=== PATIENT | female | born 1950 | race Caucasian/White ===

== ENCOUNTER 2022-09-02 09:22 | Outpatient (RCR) | payer MEDICARE, OTHER, SELFPAY | END 2022-09-22 14:00 | disposition home or self-care (01) | LOC: PT 09:22 | PROVIDERS: PCP Internal Medicine; Visit Provider Internal Medicine | DX: M54.50 Low back pain, unspecified (principal); M54.10 Radiculopathy, site unspecified ==

== ENCOUNTER 2022-11-29 13:52 | Outpatient (OUT) | payer MEDICARE, OTHER, SELFPAY ==
[2022-11-29 14:59] LABS: Potassium 4.2 mmol/L (3.5-5.1)
== END 2022-11-29 13:53 | disposition home or self-care (01) ==
LOC: LAB 13:52
PROVIDERS: PCP Internal Medicine; Visit Provider Internal Medicine
DX: E87.6 Hypokalemia (principal)
CPT/HCPCS: 36415; 84132

== ENCOUNTER 2022-12-30 13:05 | Outpatient (OUT) | payer MEDICARE, OTHER, SELFPAY ==
--- NOTE | 2022-12-30 13:06 | VEIN_ITS ---
Patient: RIGOBERTO ALVARENGA Exam Date: 12/30/2022 : 1950 Gender:F Ordering : DR DARYL OLMEDO M.D. Admission #: [id number] Family : Order #: [id number] CLICK HERE TO VIEW EXAM RADIOLOGY REPORT PROCEDURE: [facility] - OFFICE VISIT FOLLOW UP COMPARISON: None. PROGRESS NOTES: The patient reports development of bulging dilated veins and swelling involving the medial lower left leg, and has experienced an episode of spontaneous bleeding. Physical exam demonstrates mild swelling and several prominent varicosities along the medial lower left leg. Review of the ultrasound performed the same day demonstrates occlusive thrombus extending throughout the previously treated vein(s), see separate report, consistent with a successful ablation. No deep vein thrombus. The patient expressed a desire to treat the abnormal varicosities. The patient was informed that treatment was a process and would require 1-2 procedures/sessions. VEIN/[facility] EST LMTD IMPRESSION: 1. Interval development of left lower extremity ankle edema and several dilated varicosities. Patient has also undergone an episode of spontaneous bleeding. PLAN: 1. Microfoam chemical ablation of dilated superficial varicosities of the medial mid / distal lower left leg. Nurse notes, history and physical were reviewed and confirmed, see attached forms. The nurse was present throughout the physical exam and consultation Dictated by: Yadiel Chapman M.D. on 12/30/2022 at 14:59 Approved by: Yadiel Chapman M.D. on 12/30/2022 at 15:06
--- NOTE | 2022-12-30 13:06 | VEIN_ITS ---
Patient: RIGOBERTO ALVARENGA Exam Date: 12/30/2022 : 1950 Gender:F Ordering : DR DARYL OLMEDO M.D. Admission #: [id number] Family : Order #: [id number] CLICK HERE TO VIEW EXAM RADIOLOGY REPORT PROCEDURE: VC EXT VENOUS REFLUX EUFEMIA LMTD COMPARISON: None. INDICATIONS: I83.813 Painful varicose veins of bilat lower extremities TECHNIQUE: Duplex imaging of the lower extremity to assess the deep and superficial venous system for the presence of deep or superficial venous incompetence and to document the location and severity of disease. The study includes evaluation of the great saphenous vein (GSV), anterior accessory saphenous vein (AASV) and small saphenous vein (SSV). Patient scanned in reverse Trendelenburg and standing. FINDINGS: RIGHT LOWER EXTREMITY: Saphenofemoral Junction Reflux: YesNo mm sec GSV: Diam (mm) Reflux/ Time (sec) Proximal Thigh N/A Mid Thigh N/A Distal Thigh N/A Prox Calf N/A Mid Calf N/A Saphenopopliteal Junction Reflux: mm N/A SSV: Proximal Calf N/A Mid Calf N/A AASV: Not present Proximal Thigh Mid Thigh Distal Thigh Thrombi: No acute or chronic thrombus visualized Compressibility: Normal Flow: Normal Preforator: No patent perforators Tech Note: GSV and SSV were previously ablated at [facility] in 2020. No patent varicose veins visualized. LEFT LOWER EXTREMITY: Saphenofemoral Junction Reflux: No mm sec GSV: Diam (mm) Reflux/Time (sec) Proximal Thigh N/A Mid Thigh N/A Distal Thigh N/A Prox Calf N/A Mid Calf N/A Saphenopopliteal Junction Relux: mm N/A SSV: Proximal Calf N/A Mid Calf N/A AASV: Proximal Thigh No Mid Thigh No Distal Thigh No Thrombi: No acute or chronic thrombus visualized Compressibility: Normal Flow: Normal Dean: No patent perforators Tech Note: GSV, AASV, and SSV previously ablated at [facility] in 2020. Patent varicose vein dist/med calf 3.8mm with 1.3s reflux. Patent varicose vein mid/med calf 4.2mm with 0.6s reflux. CONCLUSION: 1. Dilated and incompetent branch saphenous varicosities within mid and distal medial left calf. Dictated by: Yadiel Chapman M.D. on 12/30/2022 at 14:39 Approved by: Yadiel Chapman M.D. on 12/30/2022 at 14:59
== END 2022-12-30 13:06 | disposition home or self-care (01) ==
LOC: VC 13:05
PROVIDERS: PCP Internal Medicine; Visit Provider Radiology Diagnostic Radiology
DX: I83.813 Varicose veins of bilateral lower extremities with pain (principal)
CPT/HCPCS: 93970; G0463

== ENCOUNTER 2023-01-19 08:18 | Outpatient (OUT) | payer MEDICARE, OTHER, SELFPAY ==
[2023-01-19 12:34] LABS: Potassium 4.7 mmol/L (3.5-5.1)
== END 2023-01-19 08:19 | disposition home or self-care (01) ==
LOC: LAB 01-20 08:19
PROVIDERS: PCP Internal Medicine; Visit Provider Internal Medicine
DX: E87.6 Hypokalemia (principal)
CPT/HCPCS: 36415; 84132

== ENCOUNTER 2023-01-19 12:45 | Outpatient (OUT) | payer MEDICARE, OTHER, SELFPAY ==
--- NOTE | 2023-01-19 14:28 | CA_ITS ---
Patient: RIGOBERTO ALVARENGA Exam Date: 01/19/2023 : 1950 Gender:F Ordering : ARTEMIO LaiAbhinav GOMEZ Admission #: [id number] Family : DR Paulino Swain D.O. Order #: [id number] CLICK HERE TO VIEW EXAM ECHOCARDIOGRAM REPORT PROCEDURE: CA ECHO DOPPLER COMPLETE INDICATIONS: PVCs COMPARISON: None. DESCRIPTION: COMPLETE ECHOCARDIOGRAM Real-time transthoracic echocardiography with 2D, M-mode, spectral and color flow Doppler performed. QUALITY: Technical quality was good. LEFT VENTRICLE: Normal chamber size. Normal left ventricular wall thickness. Normal systolic function. LV EF: Normal left ventricular ejection fraction, (55%). DIASTOLIC: ATRIAL SEPTUM: Visually appears intact. LEFT ATRIUM: Moderate chamber dilatation. RIGHT ATRIUM: Mild chamber dilatation. RIGHT VENTRICLE: Normal chamber size. Normal right ventricular systolic function. TRICUSPID VALVE: Normal mobility and thickness. No stenosis with trivial regurgitation. No evidence of pulmonary hypertension. RVSP 31 mmHg MITRAL VALVE: Mildly thickened with normal mobility. No evidence of mitral valve stenosis. Moderate mitral annular calcification. Mild to moderate mitral regurgitation. AORTIC VALVE: Normal trileaflet appearance. Mildly calcified aortic valve. Normal leaflet mobility. No evidence of aortic valve stenosis. DVI 0.6, ADOLFO 1.9 [id number] aortic regurgitation. AORTIC ROOT: Normal diameter and appearance. PULMONIC VALVE: Normal thickness and mobility. No stenosis. Moderate regurgitation. PERICARDIUM: No evidence of pericardial effusion. IVC: Collapses with inspirations. PLEURA: CONCLUSION: 1. Normal ventricular systolic function. LVEF is 55%. 2. Moderate mitral annular calcification with no significant mitral valve stenosis. 3. Mild to moderate mitral regurgitation. 4. Mild to moderate biatrial dilatation. 5. Normal right-sided pressures. 6. No pericardial effusion. Adult Echocardiography Procedure Report Left Ventricle LVEDD (3.7 - 5.6 cm): 4.41 cm LVESD (2.2 - 4.0 cm): 3.55 cm LVIVS thickness (0.6 - 1.2 cm): 0.95 cm LVPW thickness (0.5 - 1.0 cm): 1.03 cm LVOT Max Gradient: 2.35 mm[Hg] LVOT Area (cm2): 0.77 m/s Peak Velocity (LVOT): 0.77 m/s Mean Velocity (LVOT): 0.54 m/s LVOT Diameter 2.04 cm Left Atrium LA Volume Index (2D A2C): 25.33 ml/m2 Left Atrium Systolic Dimension: 4.09 cm Mitral Valve MV E to A Ratio: 1.09 Mitral Valve A-Wave Peak Velocity: 0.98 m/s Mitral Valve E-Wave Peak Velocity: 1.07 m/s Right Ventricle Aorta AO Root Diam: 2.65 cm Ascending Ao Diam: 2.03 cm Aortic Valve AoV Area (Peak Adam): 1.89 cm2, 1.89 cm2 AoV Area (VTI): 1.86 cm2, 1.86 cm2 Peak Velocity(Antegrade Flow): 1.33 m/s Peak Gradient(Antegrade Flow): 7.07 mm[Hg] Mean Velocity(Antegrade Flow): 0.96 m/s Mean Gradient(Antegrade Flow): 4.11 mm[Hg] Velocity Time Integral: 33.83 cm Tricuspid Valve Peak Velocity (Regurgitant Flow): 2.63 m/s Pulmonic Valve Peak Velocity: 0.85 m/s Peak Gradient: 3.04 mm[Hg], 2.71 mm[Hg] Right Atrium Right Atrium Systolic Pressure: 28.04 ml, 34.04 ml, 22.04 ml Dictated by: Agustin Donaldson M.D. on 01/19/2023 at 18:23 Approved by: Agustin Donaldson M.D. on 01/19/2023 at 18:27
== END 2023-01-19 12:46 | disposition home or self-care (01) ==
LOC: CARD 12:45
PROVIDERS: PCP Internal Medicine; Visit Provider Internal Medicine Cardiovascular Disease
DX: E87.6 Hypokalemia (principal); I49.3 Ventricular premature depolarization; I48.0 Paroxysmal atrial fibrillation; I34.0 Nonrheumatic mitral (valve) insufficiency
CPT/HCPCS: 36415; 84132; 93306

== ENCOUNTER 2023-01-20 11:26 | Outpatient (OUT) | payer MEDICARE, OTHER, SELFPAY ==
--- NOTE | 2023-01-20 10:45 | NM_ITS ---
Patient: RIGOBERTO ALVARENGA Exam Date: 01/20/2023 : 1950 Gender:F Ordering : ARTEMIO LaiAbhinav GOMEZ Admission #: [id number] Family : DR Paulino Swain D.O. Order #: [id number] CLICK HERE TO VIEW EXAM RADIOLOGY REPORT PROCEDURE: NM CHERRIE PERF SPECT REST STR COMPARISON: None. INDICATIONS: ATRIAL FIBRILLATION TECHNIQUE: Exam Description: Stress/Rest one day protocol gated SPECT Rest Imagin.5 mCi Tc-99m Cardiolite IV on 01/20/2023 Stress Imaging 30.6 mCi Tc-99m Cardiolite IV on 01/20/2023 Exercise Protocol: Gerry Heart Rate (bpm): Rest: 86 Max: 131 PMHR: 87 Blood Pressure: Rest: 180/98 Max: 238/124 Exercise Time: Minutes: 2 Seconds: 00 Stage Reached: Stage: 1 Mets 4.6 Symptoms: Rest and peak stress ECG findings were normal and the exercise portion of the study was normal per attending physician Dr. Mason Swain . For more details please see separate cardiac stress test report. FINDINGS: QUALITY OF STUDY: Good. PERFUSION DEFECT: None. LOCATION: N/A SIZE: N/A. SEVERITY: N/A. TYPE: N/A. WALL MOTION: Normal. LV SIZE: Normal. 41 mL. TID / TCD: None; 0.6 LVEF: Normal. Calculated EF 83%. SUMMARY: Myocardial perfusion imaging study is NORMAL. CONCLUSION: 1. Normal myocardial profusion scan 2. Normal exercise test Dictated by: Zach Stone MD on 01/21/2023 at 07:31 Approved by: Zach Stone MD on 01/21/2023 at 07:56
--- NOTE | 2023-01-20 13:01 | PM.STRESS ---
Stress Test Stress Test Requesting physician: Jackson Billings General Information: Reason for Stress Test: [Evaluation of the patient with an abnormal EKG and history of atrial fibrillation. ] Cardiac History and Risk Factors: [This is a 72-year-old patient with no personal history of coronary disease. She does have a history of paroxysmal atriall fibrillation associated with hypokalemia. She does have a positive family history with her father having coronary artery disease.] Resting 12 - Lead Electrocardiogram: Normal sinus rhythm with a ventricular rate of 96 bpm. The TX interval 0.16, QRS 0.10 and the QT of 0.40. Her axis is normal there is no chamber enlargement noted. There are small Q waves in the inferior limb leads with nonspecific ST-T wave changes. Stress Test: Protocol: [Gerry protocol] Exercise Capacity: [This patient demonstrated below average exercise capacity. She exercised for two minutes achieving a heart rate of 131 bpm which is equal to eighty-seven percent maximum predicted heart rate. At peak exercise she was at 1.7 miles per hour, ten percent grade in 4.6 METs units.] Blood Pressure Response: [This patient demonstrated an abnormal blood pressure response to exercise. Her resting blood pressure was 180/98 increasing to a peak of 238/124 at peak exercise then gradually returned to baseline during the recovery phase.] Rhythm: [She remained in normal sinus rhythm without ectopy during exercise] ST - Response: [At peak exercise were slight J-point depression with upsloping ST segments easily returning to baseline prior to 0.08 seconds.] Patient Response: [This patient became very dyspneic during exercise but denied chest pain.] Interpretation: There was no objective evidence of myocardial ischemia during exercise. She demonstrated poor exercise capacity with an abnormal blood pressure response to exercise. Her Romo's treadmill score was 2, placing her in the moderate risk category. Cardiolite was injected with images in interpretation pending
== END 2023-01-20 11:27 | disposition home or self-care (01) ==
LOC: NM 11:26
PROVIDERS: PCP Internal Medicine; Visit Provider Internal Medicine Cardiovascular Disease
DX: I49.3 Ventricular premature depolarization (principal); R94.31 Abnormal electrocardiogram [ECG] [EKG]
CPT/HCPCS: 78452; 93017; A9500

== ENCOUNTER 2023-01-24 12:48 | Outpatient (OUT) | payer MEDICARE, OTHER, SELFPAY ==
--- NOTE | 2023-01-24 12:49 | VEIN_ITS ---
[address] [address] Patient Name: RIGOBERTO ALVARENGA MRN: [id number] date: 1950 Sex: F Assigned Patient Location: Current Patient Location: Accession/Order Number: [id number] Exam Date: 01/24/2023 13:00 Report Date: 01/24/2023 13:59 At the request of: DARYL OLMEDO Procedure: VC INJ Foam Sclerosant WUS ASSET ADMINISTRATOR PROCEDURE: VC INJ Foam Sclerosant WUS ASSET ADMINISTRATOR HISTORY: Pain due to varicose veins of bilateral legs I83.813 Pre-operative Diagnosis: CEAP class C3 venous insufficiency with pain, tenderness, edema and incompetent branch saphenous vein(s), chronic venous insufficiency left leg secondary to venous incompetence Post-operative Diagnosis: CEAP class [C3 venous insufficiency with pain, tenderness, edema and incompetent branch saphenous vein(s), chronic venous insufficiency left leg secondary to venous incompetence Procedure Performed: 1. Ultrasound-guided microfoam chemical ablation with Varithenaregistered 2. Intraoperative ultrasound guidance Physician: Yadiel Chapman M.D. Anesthesia: None Indications for Procedure: 72 year old female. Symptoms including lower extremity swelling, dilated bulging veins, tenderness for many years despite conservative medical therapy including medical compression stockings, exercise and analgesics. Prior procedures include endovenous laser ablation and Microfoam chemical ablation. Multiple incompetent varicosities of the left leg. Duplex scan showed reflux and enlarged diameters up to 4 mm. The patient underwent informed consent including management options where the complications of infection, bleeding, pain, and skin injury were discussed. Particular attention was spent discussing thrombus extension and deep vein thrombosis as well as the possibility of pulmonary embolus and treatment with oral or injectable blood thinners. Procedure: The patient walked to the procedure room. All applicable staff donned appropriate apparel. A procedure timeout was performed to confirm correct patient, correct extremity, correct procedure, and correct room set-up including presence of all applicable supplies, devices, and drugs. A duplex ultrasound, performed by myself confirmed the location and incompetence of branch saphenous varicosities and their course was marked on the skin together with the dilated tributaries. The extent of treatment of the vein and the associated varicosities was determined through ultrasound mapping. The skin was prepped and then punctured with a butterfly needle and advanced under ultrasound guidance. The Varithenaregistered canister was activated and the canister was primed and purged as required in the instructions for use. Varithenaregistered was drawn into a sterile syringe. Varithenaregistered was slowly administered at 0.5-1.0 cc/second with close observation by ultrasound of its course in the vessels. Total volume utilized was: 15 mL (7 mL into a 4 mm varicosity distal lateral lower leg; 8 mL into 4 mm varicosity of the anterior proximal lower leg). Following administration of Varithenaregistered the leg was elevated and the patient was asked to repeatedly dorsiflex the ankle to limit flow of Varithenaregistered into perforating veins. Once appropriate spasm had been confirmed in the treated veins, the vascular catheter was removed from the leg and light pressure was applied over the puncture site for hemostasis. The common femoral and deep superficial veins were then evaluated for flow and compressibility prior to dressing placement. The lower extremity was kept elevated at 45 degrees above the horizontal and cording material was applied over the saphenous segments and tributaries to allow for eccentric compression over the target vessels including the targeted saphenous vein(s). A multilayer dressing was applied consisting of foam pads, coban and thigh-high 20-30 mm Hg compression elastic support hose were placed on the patient. The leg was lowered only after compression had been applied and the patient was immediately ambulatory. The patient ambulated 10 minutes under supervision and was without apparent concerns at time of release. Post-care instructions include advising patient to keep post-treatment bandages in place and dry for 48 hours, avoid extended periods of inactivity, avoid heavy exercise for one week, wear compression stockings on the treated leg continuously for two weeks, to walk daily for 10 minutes over the next month. The patient was instructed to take an anti-inflammatory medicine as needed and to follow up for color duplex scan of the Saphenous veins, the treated branch saphenous varicosities, the adjacent deep veins, and additional treatment within 7 days. PERSONNEL: Kip Maya RN Electronically authenticated by: YADIEL CHAPMAN Date: 01/24/2023 13:59
== END 2023-01-24 12:49 | disposition home or self-care (01) ==
LOC: VC 12:49
PROVIDERS: PCP Internal Medicine; Visit Provider Radiology Diagnostic Radiology
DX: I83.813 Varicose veins of bilateral lower extremities with pain (principal)
CPT/HCPCS: 36466

== ENCOUNTER 2023-01-27 10:57 | Outpatient (OUT) | payer MEDICARE, OTHER, SELFPAY ==
--- NOTE | 2023-01-27 10:58 | VEIN_ITS ---
Patient: RIGOBERTO ALVARENGA Exam Date: 01/27/2023 : 1950 Gender:F Ordering : DR Zach Stone M.D. Admission #: [id number] Family : Order #: [id number] CLICK HERE TO VIEW EXAM RADIOLOGY REPORT PROCEDURE: [facility] EST LMTD VEIN CENTER - OFFICE VISIT FOLLOW UP COMPARISON: [facility], 12/30/2022. PROGRESS NOTES: The patient reports improvement in leg symptoms. There has been interval reduction in varicosities. The patient has followed our recommendations to walk 20-30 minutes once or twice per day since the procedure. Physical exam demonstrates decrease in varicosities of the leg. Persistent varicosities are identified along the left leg. Review of the ultrasound performed the same day demonstrates occlusive thrombus extending throughout the treated vein(s), see separate report, consistent with a successful ablation. No thrombus extending into or beyond the saphenofemoral junction. The patient expressed a desire to proceed with treatment of remaining dilated and incompetent varicosities and reticular/spider veins. The patient was informed that treatment was a process and would require several procedures/sessions. [facility]: 1. Successful ablation of the treated left leg incompetent branch saphenous vein(s). 2. Persistent varicose veins and spider veins and mild lower extremity symptoms. PLAN: Microfoam chemical ablation of remaining left leg incompetent branch saphenous varicosities. Nurse notes, history and physical were reviewed and confirmed, see attached forms. The nurse was present throughout the physical exam and consultation Dictated by: Yadiel Chapman M.D. on 01/27/2023 at 13:42 Approved by: Yadiel Chapman M.D. on 01/27/2023 at 13:44
--- NOTE | 2023-01-27 10:58 | VEIN_ITS ---
Patient: RIGOBERTO ALVARENGA Exam Date: 01/27/2023 : 1950 Gender:F Ordering : DR Zach Stone M.D. Admission #: [id number] Family : Order #: [id number] CLICK HERE TO VIEW EXAM RADIOLOGY REPORT PROCEDURE: VC EXT VENOUS LT LIMITED COMPARISON: None. INDICATIONS: I80.02 Phlebitis of superficial veins of lt lower extremity TECHNIQUE: Lower extremity schwartz scale and Duplex Doppler evaluation of the deep venous system from the inguinal ligament through the calf veins. FINDINGS: REGION: Left lower extremity. THROMBI: Negative for DVT. Varithena induced thrombus visualized distal/lateral calf and prox/lat calf. COMPRESSIBILITY: Non-compressible segments. FLOW: Areas of no flow. OTHER: Multiple varicose veins remain with the largest of distal/med thigh 5.0mm with 0.8s reflux. CONCLUSION: 1. Successful post ablation occlusion of treated left lower extremity branch saphenous varicosities. Dictated by: Yadiel Chapman M.D. on 01/27/2023 at 13:40 Approved by: Yadiel Chapman M.D. on 01/27/2023 at 13:42
== END 2023-01-27 10:58 | disposition home or self-care (01) ==
LOC: VC 10:57
PROVIDERS: PCP Radiology Diagnostic Radiology; Visit Provider Radiology Diagnostic Radiology
DX: I80.02 Phlebitis and thrombophlebitis of superficial vessels of left lower extremity (principal)
CPT/HCPCS: 93971; G0463

== ENCOUNTER 2023-02-08 10:28 | Outpatient (OUT) | payer MEDICARE, OTHER, SELFPAY ==
[2023-02-08 17:03] LABS: Basophils Percent Auto 0.4 % (0.2-2.0); Eosinophils Absolute Auto 0.3 10^3/uL (0.0-0.7); Eosinophils Percent Auto 3.8 % (0.9-7.0); Immature Granulocytes Abs Auto 0.02 10^3/uL (0.00-0.03); Immature Granulocytes Pct Auto 0.3 % (0.0-0.5); Lymphocytes Absolute Auto 2.8 10^3/uL (1.2-3.8); Lymphocytes Percent Auto 37.6 % (20.5-60.0); Mean Corpuscular HGB Conc 31.8 g/dL (29.9-35.2); Mean Corpuscular Hemoglobin 27.7 pg (26.7-34.0); Mean Corpuscular Volume 87.1 fL (81.0-99.0); Mean Platelet Volume 9.1 fL (9.5-13.5); Monocytes Absolute Auto 0.7 10^3/uL (0.3-0.8); Monocytes Percent Auto 9.7 % (1.7-12.0); Neutrophils Absolute Auto 3.6 10^3/uL (1.4-6.5); Neutrophils Percent Auto 48.2 % (43.0-75.0); Platelet Count 219 10^3/uL (150-450); Red Blood Count 5.05 10^6/uL (4.20-5.40); Red Cell Distribution Width 12.7 % (11.0-15.0); White Blood Count 7.4 10^3/uL (4.0-11.0)
== END 2023-02-08 10:29 | disposition home or self-care (01) ==
PROVIDERS: PCP Internal Medicine
DX: H02.421 Myogenic ptosis of right eyelid (principal)
CPT/HCPCS: 36415; 85025

== ENCOUNTER 2023-02-14 07:56 | Outpatient (OUT) | payer MEDICARE, OTHER, SELFPAY ==
--- NOTE | 2023-02-14 | VEIN_ITS ---
The [address] [address] Patient Name: RIGOBERTO ALVARENGA MRN: [id number] date: 1950 Sex: F Assigned Patient Location: Current Patient Location: Accession/Order Number: [id number] Exam Date: 02/14/2023 07:55 Report Date: 02/14/2023 08:58 At the request of: DARYL OLMEDO Procedure: VC INJ Foam Sclerosant WUS HAND MITER OPERATOR PROCEDURE: VC INJ Foam Sclerosant WUS HAND MITER OPERATOR HISTORY: Pain due to varicose veins of bilateral legs I83.813 Pre-operative Diagnosis: CEAP class C4a venous insufficiency with pain, tenderness, edema and incompetent branch saphenous vein(s), chronic venous insufficiency left leg secondary to venous incompetence Post-operative Diagnosis: CEAP class C4a venous insufficiency with pain, tenderness, edema and incompetent branch saphenous vein(s), chronic venous insufficiency left leg secondary to venous incompetence Procedure Performed: 1. Ultrasound-guided microfoam chemical ablation with Varithenaregistered 2. Intraoperative ultrasound guidance Physician: Yadiel Chapman M.D. Anesthesia: None Indications for Procedure: 72 year old female. Symptoms including lower extremity pain, swelling, dilated bulging veins for many years despite conservative medical therapy including medical compression stockings, exercise and analgesics. Prior procedures include endovenous laser ablation and microfoam chemical ablation. Multiple incompetent varicosities of the left leg. Duplex scan showed reflux and enlarged diameters up to 5 mm. The patient underwent informed consent including management options where the complications of infection, bleeding, pain, and skin injury were discussed. Particular attention was spent discussing thrombus extension and deep vein thrombosis as well as the possibility of pulmonary embolus and treatment with oral or injectable blood thinners. Procedure: The patient walked to the procedure room. All applicable staff donned appropriate apparel. A procedure timeout was performed to confirm correct patient, correct extremity, correct procedure, and correct room set-up including presence of all applicable supplies, devices, and drugs. A duplex ultrasound, performed by myself confirmed the location and incompetence of branch saphenous varicosities and their course was marked on the skin together with the dilated tributaries. The extent of treatment of the vein and the associated varicosities was determined through ultrasound mapping. The skin was prepped and then punctured with a butterfly needle and advanced under ultrasound guidance. The Varithenaregistered canister was activated and the canister was primed and purged as required in the instructions for use. Varithenaregistered was drawn into a sterile syringe. Varithenaregistered was slowly administered at 0.5-1.0 cc/second with close observation by ultrasound of its course in the vessels. Total volume utilized was: 9 mL (6 mL into a 5 mm varicosity of the distal medial lower left leg; 2 mL intravenous 3 mm varicosity medial to the ankle; 1 mL into a 3 mm varicosity lateral to the ankle). Following administration of Varithenaregistered the leg was elevated and the patient was asked to repeatedly dorsiflex the ankle to limit flow of Varithenaregistered into perforating veins. Once appropriate spasm had been confirmed in the treated veins, the vascular catheter was removed from the leg and light pressure was applied over the puncture site for hemostasis. The common femoral and deep superficial veins were then evaluated for flow and compressibility prior to dressing placement. The lower extremity was kept elevated at 45 degrees above the horizontal and cording material was applied over the saphenous segments and tributaries to allow for eccentric compression over the target vessels including the targeted saphenous vein(s). A multilayer dressing was applied consisting of foam pads, coban and thigh-high 20-30 mm Hg compression elastic support hose were placed on the patient. The leg was lowered only after compression had been applied and the patient was immediately ambulatory. The patient ambulated 10 minutes under supervision and was without apparent concerns at time of release. Post-care instructions include advising patient to keep post-treatment bandages in place and dry for 48 hours, avoid extended periods of inactivity, avoid heavy exercise for one week, wear compression stockings on the treated leg continuously for two weeks, to walk daily for 10 minutes over the next month. The patient was instructed to take an anti-inflammatory medicine as needed and to follow up for color duplex scan of the Saphenous veins, the treated branch saphenous varicosities, the adjacent deep veins, and additional treatment within 7 days. PERSONNEL: Kip Maya RN Electronically authenticated by: YADIEL CHAPMAN Date: 02/14/2023 08:58
--- OUTSIDE RECORDS SUMMARY | 2023-03-22 17:43 | XMS_ITS | CCD ---
Author Name Unknown Address [address] [place] [address] Organization [facility] Care Team Providers Care Catalytic Case Operator Name Role Phone YsabelClarkie Unavailable Wiliam, Paulino Unavailable WILIAM, DR ALBRECHT Primary Care Unavailable BALL, DR ALBRECHT Admitting Unavailable BALL, DR ALBRECHT Attending Unavailable BALL, DR ALBRECHT Consulting Unavailable BALL, DR ALBRECHT Primary Care Unavailable BALL, DR ALBRECHT Attending Unavailable BALL, DR ALBRECHT Admitting Unavailable BALL, DR ALBRECHT Consulting Unavailable NEWATIA, BEULAH Consulting Unavailable BALL, DR ALBRECHT Primary Care Unavailable BALL, DR ALBRECHT Attending Unavailable BALL, DR ALBRECHT Admitting Unavailable BALL, DR ALBRECHT Consulting Unavailable NEFCY, YOLIS Consulting Unavailable BALL, DR ALBRECHT Primary Care Unavailable BALL, DR ALBRECHT Attending Unavailable BALL, DR ALBRECHT Admitting Unavailable REQUEST, DR BETTS LISTED Admitting Unavaila ble REQUEST, DR BETST LISTED Attending Unavaila ble REQUEST, DR BETTS LISTED Consulting Unavaila ble BALL, DR ALBRECHT Primary Care Unavailable BALL, DR ALBRECHT Attending Unavailable BALL, DR ALBRECHT Admitting Unavailable BALL, DR ALBRECHT Consulting Unavailable BALL, DR ALBRECHT Primary Care Unavailable MENDEZFIGUEROA Consulting Unavailable BALL, DR ALBRECHT Admitting Unavailable BALL, DR ALBRECHT Attending Unavailable BALL, DR ALBRECHT Consulting Unavailable BALL, DR ALBRECHT Primary Care Unavailable ZiebYadiel kim Consulting Unavailable BALL, DR ALBRECHT Admitting Unavailable BALL, DR ALBRECHT Attending Unavailable BALL, DR ALBRECHT Consulting Unavailable BALL, DR ALBRECHT Primary Care Unavailable BALL, DR ALBRECHT Primary Care Unavailable BALL, DR ALBRECHT Admitting Unavailable BALL, DR ALBRECHT Attending Unavailable BALL, DR ALBRECHT Consulting Unavailable ZieberYadiel Consulting Unavailable PATRICIAARTEMIO Attending Unavailable BARMARY ALANIS Attending Unavailable Allergies Allergy Classification Reported Allergen(s) Allergy Type Date of Onset Reaction(s) Facility (15 sources) Meperidine; Translations: [MEPERIDINE] Drug Allergy 3 Unknown [facility] Repository (1 source) Meperidine Drug Allergy [facility] Repository (2 sources) patient allergy list reviewed by nurse or physicia Propensity to adverse reactions 8 Comment:Done [employer] Other (2 sources) Allergies Reconciled Propensity to adverse reactions Unknown [employer] Other Medications Current Medications Medication Drug Class(es) Dates Sig (Normalized) Sig (Original) amoxicillin 875 mg oral tablet (5 sources) Penicillin-class Antibacterial Start: 01-05-2023 take 1 tablet by mouth every twelve hours Amoxicillin 875 MG 1 tablet Orally Twice a day for 7 days Jan, Active atorvastatin 40 mg oral tablet (16 sources) HMG-CoA Reductase Inhibitor Start: 07-05-2022 take 1 tablet by mouth in the evening Atorvastatin Calcium 40 MG 1 tablet Orally in the evening Jul, Active calcium carbonate 1500 mg / cholecalciferol 0.01 mg oral tablet (7 sources) Vitamin D Start: 12-22-2022 take 1 tablet by mouth every twelve hours Calcium + Vitamin D3 600-10 MG-MCG 1 tablet with food Orally Twice a day for 90 days Dec, Active doxycycline hyclate 100 mg oral capsule (6 sources) Tetracycline-class Drug Start: 01-04-2023 take 1 capsule by mouth every twelve hours Doxycycline Hyclate 100 MG 1 capsule Orally Twice a day for 7 days Jan, Active etodolac 400 mg oral tablet (11 sources) Nonsteroidal Anti-inflammatory Drug Start: 08-10-2022 take 1 tablet by mouth every twelve hours Etodolac 400 MG 1 tablet with food Orally Twice a day August, Active 60 actuat fluticasone propionate 0.25 mg/actuat / salmeterol 0.05 mg/actuat dry powder inhaler (11 sources) Corticosteroid, beta2-Adrenergic Agonist Start: 08-25-2022 take 1 puff(s) by mouth twice daily Fluticasone-Salme terol 250-50 MCG/ACT 1 puff, rinse mouth after use Inhalation Twice a day August, Active metoprolol tartrate 50 mg oral tablet (10 sources) beta-Adrenergic Shania Start: 11-16-2022 take 1 tablet by mouth every twelve hours Metoprolol Tartrate 50 MG 1 tablet with food Orally Twice a day Nov, Active pantoprazole 20 mg delayed release oral tablet (11 sources) Proton Pump Inhibitor Start: 11-05-2022 take 1 tablet by mouth every twenty-four hours Pantoprazole Sodium 20 MG 1 tablet Orally Once a day for 90 days Nov, Active microencapsulated potassium chloride 20 meq extended release oral tablet (16 sources) Start: 07-05-2022 take 1 tablet by mouth three times daily at mealtime Klor-Con M20 20 MEQ 1 tablet with food Orally three times daily Jul, Active propafenone hydrochloride 150 mg oral tablet (11 sources) Antiarrhythmic Start: 10-08-2022 take 1 tablet by mouth three times daily Propafenone HCl 150 MG 1 tablet Orally three times daily for 90 days Oct, Active Problems Active Problems Problem Classification Problem Date Documented Da te Episodic/Chronic Acute bronchitis (4 sources) Acute bronchitis; Translations: [Acute bronchitis due to other specified organisms] Episodic Asthma (20 sources) Mild intermittent asthma; Translations: [Mild intermittent asthma, uncomplicated] Chronic Cardiac dysrhythmias (20 sources) Atrial fibrillation; Translations: [Paroxysmal atrial fibrillation] Onset: 3 Chronic Chronic obstructive pulmonary disease and bronchiectasis (20 sources) Bronchiectasis; Translations: [Bronchiectasis, uncomplicated] Chronic Chronic obstructive pulmonary disease and bronchiectasis (2 sources) Bronchitis; Translations: [Bronchitis, not specified as acute or chronic] Episodic Coronary atherosclerosis and other heart disease (10 sources) Coronary arteriosclerosis; Translations: [Atherosclerotic heart disease of [place] coronary artery without angina pectoris] Chronic Disorders of lipid metabolism (18 sources) Pure hypercholesterolemia; Translations: [Familial hypercholesterolemia] Onset: 7 Chronic Esophageal disorders (6 sources) Gastro-esophageal reflux disease with esophagitis; Translations: [Gastroesophageal reflux disease with esophagitis without hemorrhage] Chronic Essential hypertension (14 sources) Essential hypertension; Translations: [Essential (primary) hypertension] Chronic Fluid and electrolyte disorders (19 sources) Hypokalemia; Translations: [Hypokalemia] Onset: 3 Episodic Immunizations and screening for infectious disease (3 sources) Encounter for screening for other viral diseases; Translations: [Vaccination given] Onset: 2 Resolved: 2 Episodic Menopausal disorders (16 sources) Decreased estrogen level; 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 Other aftercare (2 sources) Long-term current use of drug therapy; Translations: [Other long-term (current) drug therapy] Episodic Other circulatory disease (2 sources) Elevated blood-pressure reading without diagnosis of hypertension; Translations: [Elevated blood-pressure reading, without diagnosis of hypertension] Episodic Other connective tissue disease (16 sources) Disorder of soft tissue; Translations: [Other specified soft tissue disorders] Episodic Other diseases of veins and lymphatics (9 sources) Peripheral venous insufficiency; Translations: [Venous insufficiency (chronic) (peripheral)] Episodic Other diseases of veins and lymphatics (1 source) Venous insufficiency (chronic) (peripheral) Episodic Other injuries and conditions due to external causes (2 sources) History of fall; Translations: [History of falling] Episodic Other lower respiratory disease (14 sources) Persistent cough; Translations: [Persistent cough] Episodic Other lower respiratory disease (3 sources) Other forms of dyspnea; Translations: [OTHER FORMS OF DYSPNEA] Onset: 3 Episodic Other lower respiratory disease (6 sources) Chronic cough; Translations: [Chronic cough] Onset: 2 Episodic Other screening for suspected conditions (not mental disorders or infectious disease) (11 sources) Encounter for screening mammogram for malignant neoplasm of breast; Translations: [Blood chemistry abnormal] Onset: 7 Resolved: 0 Episodic Phlebitis; thrombophlebitis and thromboembolism (4 sources) Thrombophlebitis of superficial veins of lower extremity; Translations: [Phlebitis and thrombophlebitis of superficial vessels of left lower extremity] Episodic Residual codes; unclassified (2 sources) Postmenopausal state; Translations: [Asymptomatic menopausal state] Episodic Spondylosis; intervertebral disc disorders; other back problems (20 sources) Lumbar spondylosis; Translations: [Spondylosis without myelopathy or radiculopathy, lumbar region] Chronic Spondylosis; intervertebral disc disorders; other back problems (1 source) Radiculopathy, lumbar region; Translations: [RADICULOPATHY LUMBAR REGION] Onset: 3 Episodic Sprains and strains (1 source) Strain of muscle, fascia and tendon of right hip, subsequent encounter Episodic Unclassified (3 sources) LOW BACK PAIN, UNSPECIFIED; Translations: [LOW BACK PAIN, UNSPECIFIED] Onset: 3 Varicose veins of lower extremity (18 sources) Varicose veins of bilateral lower limbs; Translations: [Asymptomatic varicose veins of bilateral lower extremities] Episodic Past or Other Problems Problem Classification Problem Date Documented Da te Episodic/Chronic Esophageal disorders (10 sources) Esophageal disorders; Translations: [Gastroesophageal reflux disease with esophagitis without hemorrhage] Fracture of upper limb (2 sources) Disorder due to and following fracture of upper limb; Translations: [Fracture of unspecified carpal bone, left wrist, sequela] Onset: 10-02-2018 Episodic Other connective tissue disease (1 source) Pain in left foot; Translations: [PAIN IN LEFT FOOT] Onset: 04-29-2022 Episodic Other non-traumatic joint disorders (4 sources) Pain in left ankle and joints of left foot; Translations: [PAIN IN LEFT ANKLE] Onset: 04-27-2022 Episodic Residual codes; unclassified (2 sources) Other specified health status; Translations: [Health status] Resolved: 02-18-2020 Episodic Unclassified (1 source) Subacute cough R05.2 Unclassified (1 source) Persistent cough R05.3 Unclassified (1 source) LOW BACK PAIN, UNSPECIFIED; Translations: [LOW BACK PAIN, UNSPECIFIED] Onset: 08-12-2022 Results Test Name Value Interpretation Reference Range Facil ity Office Visiton 02-04-2023 Follow-up visit [id number] Shelia Vu 1950 F Date Provider Department Center 02/04/2023 MARY ROB ELIECER [facility] No family history on file Level of Service:79175 [place] OFFICE/OUTPATIENT ESTABLISHED MOD MDM 30-39 MIN Reason for Visit and Comments: Follow-up [561043] Normal [facility] Office Visiton 12-28-2022 Follow-up visit [id number] Shelia Vu 1950 F Date Provider Department Center 12/28/2022 ARTEMIO BARTLETT ELIECER [facility] No family history on file Level of Service:29232 [place] OFFICE/OUTPATIENT NEW HIGH MDM 60-74 MINUTES Normal [facility] CBC AUTO DIFFon 08-17-2022 BASO # 0.0 103/ul Normal 0.0-0.1 [facility] Comment on above: Performed By: #### C RP #### [facility] [address] [address] [address] Lydia Ward Basophils/100 WBC (Bld) 0.7 % Normal 0.2-2.0 [facility] Comment on above: Performed By: #### C RP #### [facility] [address] [place] [address] Dr. Lydia Ward EO # 0.3 103/ul Normal 0.0-0.7 [facility] Comment on above: Performed By: #### C RP #### [facility] [address] [place] [address] Dr. Lydia Ward Eosinophils/100 WBC (Bld) 5.5 % Normal 0.9-7.0 [facility] Comment on above: Performed By: #### C RP #### [facility] [address] [place] [address] Dr. Lydia Ward Erythrocyte distribution wid th (RBC) [Ratio] 12.7 % Normal 11.0-15.0 [facility] Comment on above: Performed By: #### C RP #### [facility] [address] [place] [address] Dr. Lydia Ward Hematocrit (Bld) [Volume fraction] 45.1 % Normal 3 6.0-48.0 [facility] Comment on above: Performed By: #### C RP #### [facility] [address] [place] [address] Dr. Lydia Ward Hemoglobin (Bld) [Mass/Vol] 14.7 g/dL Normal 12.0-16. 0 [facility] Comment on above: Performed By: #### C RP #### [facility] [address] [place] [address] Dr. Lydia Ward IG # 0.01 10e3/ul Normal 0.00-0.03 [facility] Comment on above: Performed By: #### C RP #### [facility] [address] [place] [address] Dr. Lydia Ward IG % 0.2 % Normal 0.0-0.5 The [facility] Comment on above: Performed By: #### C RP #### [facility] [address] [place] [address] Dr. Lydia Ward LYMPH # 2.0 103/ul Normal 1.2-3.8 [facility] Comment on above: Performed By: #### C RP #### [facility] [address] [place] [address] Dr. Lydia Ward Lymphocytes/100 WBC (Bld) 33.9 % Normal 20.5-60.0 [facility] Comment on above: Performed By: #### C RP #### [facility] [address] [place] [address] Dr. Lydia Ward MANUAL DIFF REQ NO Normal [facility] Comment on above: Performed By: #### C RP #### [facility] [address] [place] [address] Dr. Lydia Ward MCH (RBC) [Entitic mass] 28.3 pg Normal 26.7-34.0 [facility] Comment on above: Performed By: #### C RP #### [facility] [address] [place] [address] Dr. Ldyia Ward MCHC (RBC) [Mass/Vol] 32.6 g/dL Normal 29.9-35.2 [facility] Comment on above: Performed By: #### C RP #### [facility] [address] [place] [address] Dr. Lydia Ward MCV (RBC) [Entitic vol] 86.9 fL Normal 81.0-99.0 [facility] Comment on above: Performed By: #### C RP #### [facility] [address] [place] [address] Dr. Lydia Ward MONO # 0.5 103/ul Normal 0.3-0.8 [facility] Comment on above: Performed By: #### C RP #### [facility] [address] [place] [address] Dr. Lydia Ward Monocytes/100 WBC (Bld) 9.0 % Normal 1.7-12.0 [facility] Comment on above: Performed By: #### C RP #### [facility] [address] [address] [address] Lydia Ward NEUT # 3.1 103/ul Normal 1.4-6.5 The [facility] Comment on above: Performed By: #### C RP #### [facility] [address] [address] [address] Lydia Ward Neutrophils/100 WBC (Bld) 50.7 % Normal 43.0-75.0 [facility] Comment on above: Performed By: #### C RP #### [facility] [address] [address] [address] Lydia Ward Platelet mean volume (Bld) [Entitic vol] 9.1 fL Critically low 9.5-13.5 The [facility] Comment on above: Performed By: #### C RP #### [facility] [address] [place] [address] Dr. Lydia Ward PLT 206 103/ul Normal 150-450 The [facility] Comment on above: Performed By: #### C RP #### [facility] [address] [place] [address] Dr. Lydia Ward RBC 5.19 106/ul Normal 4.20-5.40 [facility] Comment on above: Performed By: #### C RP #### [facility] [address] [place] [address] Dr. Lydia Ward WBC 6.0 103/ul Normal 4.0-11.0 [facility] Comment on above: Performed By: #### C RP #### [facility] [address] [place] [address] Dr. Lydia Ward CRPon 08-17-2022 CRP [Mass/Vol] mg/L Normal <=1.0 [facility] Comment on above: Performed By: #### C RP #### [facility] [address] [place] [address] CHEST HI RESOLUTIONon CT CHEST HI RESOLUTION EXAMINATION: CT C HEST HI RESOLUTION HISTORY: Chronic cough COMPARISON: No relevant comparison available. TECHNIQUE: Axial images were obtained at 10 mm intervals during inspiration and expiration in the supine and prone positions. No IV contrast given. Dose reduction techniques were achieved by using automated exposure control and/or adjustment of mA and/or kV according to patient size and/or use of iterative reconstruction technique. FINDINGS: LUNGS: No visible pulmonary disease. PLEURA: No mass, effusion, or pneumothorax. DARRYL: No mass or adenopathy. MEDIASTINUM: Atherosclerotic coronary artery disease. No mass or adenopathy. CHEST WALL: No mass or axillary adenopathy LIMITED ABDOMEN: No suspicious findings. Limited images of the upper abdomen. OTHER: Incidental right renal cyst. IMPRESSION: 1. Minimal emphysematous changes. No air trapping, acute infiltrates, suspicious nodules, or significant chronic interstitial changes. 2. Atherosclerotic coronary artery disease. Electronically authenticated by: YADIEL CHAPMAN Date: 2022-08-17 09:51 Normal [facility] l POTASSIUM 08-10-2022 Potassium [Moles/Vol] 4.5 mmol/L Normal 3.5-5.1 [facility] Comment on above: Performed By: #### K #### [facility] [address] [place] [address] Dr. Lydia Ward XR CHEST 2 Von 08-10-2022 XR CHEST 2 V EXAMINATION: XR CHES T 2 V, 08/10/2022 2:49 PM EDT HISTORY: Dyspnea COMPARISON: 03/23/2022 TECHNIQUE: Chest x-ray: Two views. FINDINGS: Stable interstitial prominence with bronchiectasis noted in the lower lobes bilaterally. No focal consolidations or pleural effusions. Cardiomediastinal silhouette is unremarkable. Visualized osseous structures are unremarkable. IMPRESSION: No acute disease. Stable interstitial markings in the lower lobes bilaterally. Electronically authenticated by: BEULAH RIVAS Date: 2022-08-10 18:46 Normal [facility] XR ANKLE LT 2Von 04-27-2022 XR ANKLE LT 2V EXAM: XR ANKLE LT 2V HISTORY: Arthralgia of the ankle and/or foot . The patient fell 4 days ago now with pain and swelling. COMPARISON: None. TECHNIQUE: AP and lateral views of the left ankle were obtained. FINDINGS: There is no apparent acute fracture or dislocation. The mortise is intact. No osteochondral injury is identified. The remainder the joint spaces are intact. Small osteophytes arise from the insertion site of the Achilles tendon and the the origin of the plantar fascia. Diffuse soft tissue swelling is seen about the lower leg, ankle and foot. Calcifications are seen in the soft tissues which are probably in the skin. IMPRESSION: No acute fracture or dislocation. No significant degenerative changes are present. Osteophytes arise from the posterior calcaneus. Numerous small calcifications are presumably skin calcifications, and diffuse soft tissue swelling is present. Comparison with a previous study may be helpful in confirming the chronicity of these findings. Electronically authenticated by: YOLIS SANCHEZ Date: 2022-04-27 19:16 Normal [facility] XR FOOT LT 2Von 04-27-2022 XR FOOT LT 2V EXAM: XR FOOT LT 2V HISTORY: Pain in left foot . The patient fell 4 days ago now with pain and swelling. COMPARISON: None. TECHNIQUE: AP and lateral views of the left foot were obtained. FINDINGS: There is no apparent acute fracture or dislocation. There is mild narrowing of the first metatarsophalangeal joint. The remainder of the joint spaces are intact. Small osteophytes arise from the posterior calcaneus. Diffuse osteopenia is noted. Mild soft tissue swelling seen diffusely about the foot. IMPRESSION: There is no evidence of an acute fracture or dislocation. Mild diffuse soft tissue swelling is noted. Direct comparison with a previous study may be helpful in confirming the chronicity of these findings. Electronically authenticated by: YOLIS SANCHEZ Date: 2022-04-27 19:19 Normal [facility] CBC AUTO DIFFon 03-23-2022 BASO # 0.1 103/ul Normal 0.0-0.1 [facility] Comment on above: Performed By: #### D ATCBC #### [facility] [address] [place], [place] [address] Dr. Lydia Ward Basophils/100 WBC (Bld) 0.5 % Normal 0.2-2.0 [facility] Comment on above: Performed By: #### D ATCBC #### [facility] [address] [place], [place] [address] Dr. Lydia Ward EO # 0.1 103/ul Normal 0.0-0.7 [facility] Comment on above: Performed By: #### D ATCBC #### [facility] [address] [place] [address] Dr. Lydia Ward Eosinophils/100 WBC (Bld) 0.8 % Critically low 0.9-7. 0 [facility] Comment on above: Performed By: #### D ATCBC #### [facility] [address] [place] [address] Dr. Lydia Ward Erythrocyte distribution wid th (RBC) [Ratio] 12.9 % Normal 11.0-15.0 [facility] Comment on above: Performed By: #### D ATCBC #### [facility] [address] [place] [address] Dr. Lydia Ward Hematocrit (Bld) [Volume fraction] 43.5 % Normal 3 6.0-48.0 [facility] Comment on above: Performed By: #### D ATCBC #### [facility] [address] [place] [address] Dr. Lydia Ward Hemoglobin (Bld) [Mass/Vol] 14.3 g/dL Normal 12.0-16. 0 [facility] Comment on above: Performed By: #### D ATCBC #### [facility] [address] [place] [address] Dr. Lydia Ward IG # 0.05 10e3/ul Critically high 0.00-0.[address] [facility] Comment on above: Performed By: #### D ATCBC #### [facility] [address] [place] [address] Dr. Lydia Ward IG % 0.5 % Normal 0.0-0.5 [facility] Comment on above: Performed By: #### D ATCBC #### [facility] [address] [place] [address] Dr. Lydia Ward LYMPH # 2.2 103/ul Normal 1.2-3.8 [facility] Comment on above: Performed By: #### D ATCBC #### [facility] [address] [place] [address] Dr. Lydia Ward Lymphocytes/100 WBC (Bld) 19.7 % Critically low 20.5-6 0.0 [facility] Comment on above: Performed By: #### D ATCBC #### [facility] [address] [place] [address] Dr. Lydia Ward MCH (RBC) [Entitic mass] 29.2 pg Normal 26.7-34.0 [facility] Comment on above: Performed By: #### D ATCBC #### [facility] [address] [place] [address] Dr. Lydia Ward MCHC (RBC) [Mass/Vol] 32.9 g/dL Normal 29.9-35.2 [facility] Comment on above: Performed By: #### D ATCBC #### [facility] [address] [place] [address] Dr. Lydia Ward MCV (RBC) [Entitic vol] 88.8 fL Normal 81.0-99.0 [facility] Comment on above: Performed By: #### D ATCBC #### [facility] [address] [place] [address] Dr. Lydia Ward MONO # 0.9 103/ul Critically high 0.3-0.8 [facility] Comment on above: Performed By: #### D ATCBC #### [facility] [address] [place] [address] Dr. Lydia Ward Monocytes/100 WBC (Bld) 8.2 % Normal 1.7-12.0 [facility] Comment on above: Performed By: #### D ATCBC #### [facility] [address] [place] [address] Dr. Lydia Ward NEUT # 7.8 103/ul Critically high 1.4-6.5 [facility] Comment on above: Performed By: #### D ATCBC #### [facility] [address] [place] [address] Dr. Lydia Ward Neutrophils/100 WBC (Bld) 70.3 % Normal 43.0-75.0 [facility] Comment on above: Performed By: #### D ATCBC #### [facility] [address] [address] [address] Lydia Ward Platelet mean volume (Bld) [Entitic vol] 8.8 fL Critically low 9.5-13.5 [facility] Comment on above: Performed By: #### D ATCBC #### [facility] [address] [address] [address] Lydia Ward PLT 276 103/ul Normal 150-450 [facility] Comment on above: Performed By: #### D ATCBC #### [facility] [address] [address] [address] Lydia Ward RBC 4.90 106/ul Normal 4.20-5.40 [facility] Comment on above: Performed By: #### D ATCBC #### [facility] [address] [place] [address] Dr. Lydia Ward WBC 11.1 103/ul Critically high 4.0-11.0 [facility] Comment on above: Performed By: #### D ATCBC #### [facility] [address] [place] [address] Dr. Lydia Ward RUTH - VITAMIN Don 03-23-2022 VIT D 25-OH 31.3 ng/mL Normal [facility] Comment on above: Performed By: #### C RP #### [facility] [address] [place] [address] Dr. Lydia Ward VIT D RANGES SEE BELOW Normal [facility] Comment on above: Result Comment: <20 ng/mL Vit D deficient 20 - <30 ng/mL Vit D insufficient 30 - 100 ng/mL Vit D sufficient >100 ng/mL Potential Toxicity Performed By: #### C RP #### [facility] [address] [address] [address] Lydia Ward RUTH- BMP WITH LIPIDon 2021 Anion gap [Moles/Vol] 7.6 mmol/L Normal [facility] Comment on above: Performed By: #### C RP #### [facility] [address] [address] [address] Lydia Ward Calcium [Mass/Vol] 9.4 mg/dL Normal 8.5-10.1 [facility] Comment on above: Performed By: #### C RP #### [facility] [address] [address] [address] Lydia Ward Chloride [Moles/Vol] 100 mmol/L Normal 98-107 [facility] Comment on above: Performed By: #### C RP #### [facility] [address] [address] [address] Lydia Ward Cholesterol [Mass/Vol] 126 mg/dL Normal <=200 [facility] Comment on above: Performed By: #### C RP #### [facility] [address] [address] [address] Lydia Ward Cholesterol in HDL [Mass/Vol] 53 mg/dL Normal 40-60 [facility] Comment on above: Performed By: #### C RP #### [facility] [address] [place] [address] Dr. Lydia Ward Cholesterol in LDL [Mass/Vol] 53.6 mg/dL Normal [facility] Comment on above: Performed By: #### C RP #### [facility] [address] [address] [address] Lydia Ward CO2 [Moles/Vol] 34.0 mmol/L Critically high 21.0-32.0 [facility] Comment on above: Performed By: #### C RP #### [facility] [address] [place] [address] Dr. Lydia Ward Creatinine [Mass/Vol] 0.76 mg/dL Normal 0.55-1.02 [facility] Comment on above: Performed By: #### C RP #### [facility] [address] [address] [address] Lydia Ward EGFR-AF CITIZEN [place] >60 Normal >=60 [facility] Comment on above: Performed By: #### C RP #### [facility] [address] [address] [address] Lydia Ward EGFR-NON AF CITIZEN OF [place] >60 Normal >=60 [facility] Comment on above: Performed By: #### C RP #### [facility] [address] [address] [address] Lydia Ward Glucose [Mass/Vol] 83 mg/dL Normal 74-106 [facility] Comment on above: Performed By: #### C RP #### [facility] [address] [address] [address] Lydia Ward HDL NORMAL > or = 60 mg/dl - LO W CARDIOVASCULAR RISK <40 mg/dl - HIGH CARDIOVASCULAR RISK Normal [facility] Comment on above: Performed By: #### C RP #### [facility] [address] [address] [address] Lydia Ward LDL CALC NORMAL SEE BELOW Normal [facility] Comment on above: Result Comment: <100 mg/dl OPTIMAL 100 - 129 mg/dl NEAR OR ABOVE OPTIMAL 130 - 159 mg/dl BORDERLINE HIGH 160 - 189 mg/dl HIGH >190 mg/dl VERY HIGH Performed By: #### C RP #### [facility] [address] [place] [address] Dr. Lydia Ward Potassium [Moles/Vol] 4.6 mmol/L Normal 3.5-5.1 [facility] Comment on above: Performed By: #### C RP #### [facility] [address] [place] [address] Dr. Lydia Ward Sodium [Moles/Vol] 137 mmol/L Normal 136-145 [facility] Comment on above: Performed By: #### C RP #### [facility] [address] [place] [address] Dr. Lydia Ward Triglyceride [Mass/Vol] 97 mg/dL Normal <=150 [facility] Comment on above: Performed By: #### C RP #### [facility] [address] [place] [address] Dr. Lydia Ward Urea nitrogen [Mass/Vol] 17.0 mg/dL Normal 7.0-18.0 [facility] Comment on above: Performed By: #### C RP #### [facility] [address] [place] [address] Dr. Lydia Ward Urea nitrogen/Creatinine [Mass ratio] 22.4 mg/mg Normal [facility] Comment on above: Performed By: #### C RP #### [facility] [address] [place], [place] [address] Dr. Lydia Ward VLDL CALC 19.4 mg/dL Normal [facility] Comment on above: Performed By: #### C RP #### [facility] [address] [place], [place] [address] Dr. Lydia Ward XR CHEST 2 Von 03-23-2022 XR CHEST 2 V EXAM: CHEST 2 VIEWS HISTORY: Chronic cough TECHNIQUE: PA and lateral views chest. COMPARISON: None. FINDINGS: The lungs are clear. There is no focal lung consolidation, pleural effusion or pneumothorax. Pulmonary vasculature is within normal limits. There is aortic atherosclerosis with normal heart size. Dense mitral valve annular calcifications are seen. There is thoracolumbar dextroscoliosis. IMPRESSION: 1. No acute cardiopulmonary disease. Electronically authenticated by: FIGUEROA MENDEZ Date: 2022-03-23 13:51 Normal The [facility] MG MAMM SCREEN 3D EUFEMIA CADon 03-22-2022 MG MAMM SCREEN 3D EUFEMIA CAD Patient: HOLLEY VU Exam Date: 03/22/2022 : 1950 Gender:F Ordering : DR PAULINO SWAIN D.O. Admission #: [id number] Family : Order #: [id number] CLICK HERE TO VIEW EXAM RADIOLOGY REPORT PROCEDURE: MAMMOGRAM SCREENING 3D BILATERAL CAD COMPARISON: MG MAMM SCREEN 3D EUFEMIA CAD, 03/20/2021. MG MAMM SCREEN EUFEMIA W CAD, 03/18/2020. INDICATIONS: Screening mammography Calculator Name NCI Breast Cancer Risk Assessment Tool 5 Year Breast Cancer Risk 2.10% Lifetime Breast Cancer Risk 6.30% Personal Breast Cancer No Personal Ovarian Cancer No Treatments None Family Cancers None LOCATION: [facility] BREAST COMPOSITION: Extremely dense, which lowers the sensitivity of mammography. FINDINGS: DIAGNOSTIC CATEGORY 1--NEGATIVE. RIGHT BREAST: No significant suspicious finding. No significant change has occurred. LEFT BREAST: No significant suspicious finding. No significant change has occurred. RECOMMENDATIONS: ROUTINE MAMMOGRAM AND CLINICAL EVALUATION IN 12 MONTHS. PLEASE NOTE: A NORMAL MAMMOGRAM DOES NOT EXCLUDE THE POSSIBILITY OF BREAST CANCER. A CLINICALLY SUSPICIOUS PALPABLE LUMP SHOULD BE BIOPSIED. Dictated by: Yadiel Chapman M.D. on 03/23/2022 at 12:21 Approved by: Yadiel Chapman M.D. on 03/23/2022 at 12:22 Normal [facility] POTASSIUMon 11-17-2021 Potassium [Moles/Vol] 4.5 mmol/L Normal 3.5-5.1 [facility] Comment on above: Performed By: #### K #### [facility] [address] [address] [address] Lydia Ward COVCEDRIC Quick Testingon 2021 Result Negative [facility] [place] Other Vital Signs Date Time Vital Sign Value Performing Clinician Facility 01-14-2023 11:15-0400 Body height 160.02 cm Paulino Ball Other [facility] Other 01-14-2023 11:15-0400 Body mass index (BMI) [Ratio] 24.23 kg/m2 Paulino Ball Other [facility] Other 01-14-2023 11:15-0400 Body weight 62.05 kg Paulino Ball Other [facility] Other 01-14-2023 11:15-0400 Diastolic blood pressure 69 mm[Hg] Paulino Ball Other [facility] Other 01-14-2023 11:15-0400 Respiratory rate 12 /min Paulino Ball Other [facility] Other 01-14-2023 11:15-0400 Systolic blood pressure 164 mm[Hg] Paulino Ball Other [facility] Other 12-08-2022 11:30-0400 Body height 160.02 cm Paulino Ball Other [facility] Other 12-08-2022 11:30-0400 Body mass index (BMI) [Ratio] 25.22 kg/m2 Paulino Ball Other [facility] Other 12-08-2022 11:30-0400 Body weight 64.59 kg Paulino Swain Other [facility] Other 12-08-2022 11:30-0400 Diastolic blood pressure 81 mm[Hg] Paulino Swain Other [facility] Other 12-08-2022 11:30-0400 Respiratory rate 12 /min Paulino Swain Other [facility] Other 12-08-2022 11:30-0400 Systolic blood pressure 161 mm[Hg] Paulino Swain Other [facility] Other Encounters Encounter Date Encounter Type Care Provider Facility Start: 03-18-2023 End: 03-18-2023 ambulatory Paulino Swain Other [facility] Other Start: 03-18-2023 Telephone encounter Paulino Swain [facility] Start: 02-23-2023 End: 02-23-2023 ambulatory Paulino Swain Other [facility] Other Start: 02-23-2023 Nursing evaluation o f patient and report Paulino Swain [facility] Start: 02-04-2023 End: 02-04-2023 ambulatory [facility] Start: 01-14-2023 End: 01-14-2023 ambulatory Paulino Wiliam Other [facility] Other Start: 01-14-2023 Office outpatient vi sit 15 minutes Paulino Ball [facility] Start: 01-13-2023 End: 01-13-2023 ambulatory Paulino Ball Other [facility] Other Start: 01-13-2023 Telephone encounter Paulino Ball [facility] Start: 01-05-2023 End: 01-05-2023 ambulatory Paulino Ball Other [facility] Other Start: 01-05-2023 Telephone encounter Paulino Swain [facility] Start: 01-04-2023 End: 01-04-2023 ambulatory Paulino Wiliam Other [facility] Other Start: 01-04-2023 Telephone encounter Paulino Wiliam [facility] Start: 12-28-2022 End: 12-28-2022 ambulatory ARTEM[facility] Start: 12-22-2022 End: 12-22-2022 ambulatory Paulino Wiliam Other [facility] Other Start: 12-22-2022 Telephone encounter Paulino Swain [facility] Start: 12-08-2022 End: 12-08-2022 ambulatory Paulino Swain Other [facility] Other Start: 12-08-2022 Office outpatient vi sit 15 minutes Paulino Swain [facility] Start: 12-08-2022 Telephone encounter Paulino Swain [facility] Start: 11-16-2022 End: 11-16-2022 ambulatory Paulino Swain Other [facility] Other Start: 11-16-2022 Telephone encounter Paulino Swain [facility] Start: 11-05-2022 End: 11-05-2022 ambulatory Paulino Swain Other [facility] Other Start: 11-05-2022 Telephone encounter Paulino Swain [facility] Start: 08-19-[address] PAULINO SWAIN Facili ty:[facility]1 Start: 08-17-2022 End: 08-18-[address] PAULINO SWAIN Facility:[facility] Start: 08-12-2022 End: 08-12-[address] PAULINO SWAIN [facility] [employer] Other Start: 08-12-2022 Telephone encounter Paulino Swain [facility] Start: 08-10-2022 End: 08-11-[address] PAULINO SWAIN Facility:[facility] Start: 07-06-2022 End: 07-06-2022 ambulatory Paulino Swain Other [facility] Other Start: 07-06-2022 Telephone encounter Paulino Swain [facility] Start: 07-05-2022 End: 07-05-2022 ambulatory Paulino Wiliam Other [facility] Other Start: 07-05-2022 Telephone encounter Paulino Swain [facility] Start: 04-27-2022 End: 04-28-[address] PAULINO SWAIN Facility:[facility] Start: 04-23-2022 End: 04-23-2022 ambulatory Paulino Swain Other [facility] Other Start: 04-23-2022 Telephone encounter Paulino Swain [facility] Start: 03-23-2022 End: 03-24-[address] PAULINO SWAIN Facility:[facility] Start: 03-22-2022 End: 03-23-[address] PAULINO SWAIN Facility:[facility] Start: 03-22-2022 Adult health examination Grey Swain Other [facility] Other Start: 03-22-2022 Gynecological examination normal Paulino Swain Other [facility] Other Start: 11-17-2021 End: 11-18-[address] PAULINO SWAIN Facility:[facility] Start: 04-28-2021 End: 04-28-2021 ambulatory Gogo Grady Other [facility] Other Start: 04-28-2021 Office outpatient vi sit 5 minutes Gogo Grady [facility] Procedures Date Procedure Procedure Detail Performing Clinician Start: 10-20-2016 General examination of patient Paulino Swain Other Start: 10-20-2016 Screening mammography B enjovany Swain Other Depression screening Nafisa Swain Other Screening for malign ant neoplasm of breast Paulino Swain Other Screening for malign ant neoplasm of colon Paulino Swain Other Immunizations Immunization Date Immunization Notes Care Provider Bretn allen 02-23-2023 influenza, high dose seasonal, preservative-free Paulino Swain Other [facility] Other 02-01-2022 influenza virus vaccine, split virus (incl. purified surface antigen) Paulino Swain Other [facility] Other 01-23-2021 influenza virus vaccine, split virus (incl. purified surface antigen) Paulino Swain Other [facility] Other 06-06-2020 COVID-19 Vaccine Pfi zer - Documentation Purposes Only Paulino Swain Other [facility] Other 05-16-2020 COVID-19 Vaccine Pfi zer - Documentation Purposes Only Paulino Swain Other [facility] Other 02-21-2020 pneumococcal polysaccharide vaccine, 23 valent Paulino Swain Other [facility] Other 01-09-2020 influenza virus vaccine, split virus (incl. purified surface antigen) Paulino Swain Other [facility] Other 02-15-2019 pneumococcal conjuga te vaccine, 13 valent Paulino Swain Other [facility] Other 01-30-2019 influenza virus vaccine, split virus (incl. purified surface antigen) Paulino Swain Other [facility] Other 01-24-2017 tetanus and diphther ia toxoids, adsorbed, preservative free, for adult use (5 Lf of tetanus toxoid and 2 Lf of diphtheria toxoid) Paulino Swain Other [facility] Other 02-03-2016 tetanus and diphther ia toxoids, adsorbed, preservative free, for adult use (5 Lf of tetanus toxoid and 2 Lf of diphtheria toxoid) Paulino Swain Other [facility] Other 01-28-2015 tetanus and diphther ia toxoids, adsorbed, preservative free, for adult use (5 Lf of tetanus toxoid and 2 Lf of diphtheria toxoid) Paulino Swain Other [facility] Other 02-22-2014 tetanus and diphther ia toxoids, adsorbed, preservative free, for adult use (5 Lf of tetanus toxoid and 2 Lf of diphtheria toxoid) Paulino Swain Other [facility] Other Payers Date Payer Category Payer Medicare [id number] 2.1 [id number] 1957 Self-pay [id number] 1957 Unknown [id number] 2. [id number] 1950 Unknown [id number] 2.16.84 [id number] 1950 Unknown [id number] 2.16.84 [id number] 1950 Unknown [id number] 2.16.84 [id number] 1950 Unknown [id number] 2.16.84 [id number] 1950 Unknown [id number] 2.16.84 [id number] 1950 Unknown [id number] 2.16.84 [id number] 1950 Unknown [id number] 2.16.84 [id number] 1950 Unknown [id number] 2.16.84 [id number] Unknown [id number] 2.16.84 [id number] Social History Date Type Detail Facility Sex Assigned At [facility] Other Clinical Notes 04-28-2021 to 03-18-2023 Note Date & Type Note Facility 03-18-2023 Evaluation note Encounter Date Diagnosis Assessment Notes Mar, Screening mammogram, encounter for (ICD-10 - Z12.31) [facility] Other 11-03-2023 NoteUT Electrophysiology Consult Note Reason for visit: Palpitations, afib 02/04/23: she is here for follow-up Stress test 01/20/2023 negative for ischemia Echo 01/19/2023 shows normal LVSF, EF 55%, moderate mitral annular calcification but no significant mitral valve stenosis, mild to moderate mitral regurg, mild to moderate biatrial dilatation, normal right-sided pressures she continues to have palpitations which could be PVCs as when she went to the ER 08/2022 to be evaluated she is noted to have sinus rhythm with unifocal PVCs We discussed doing a loop for monitoring of any breakthrough episodes of A-fib but given she has not any recent event monitor due to insurance we will do a 30-day event monitor to rule out any A-fib or arrhythmia burden and then we can consider a loop implant pending the findings 12/28/22 HPI: Holley Vu is a 72 y.o. year old with past medical history of isolated Kramer's palsy, Atrial fibrillation, hyperlipidemia was recently seen in [place] ED for irregular heartbeats. she has been previously diagnosed with A-fib many years ago and has been asymptomatic for quite some time. she had an echocardiogram done in 2008 which was unremarkable and had been placed on propafenone as well as metoprolol. patient states that she has noticed skipped beats but not any fast heart rate. Her first episode of A-fib was in 2008. she was noted to have hypokalemia at that time associated with diuretic use. however there were 3-4 episodes of A-fib with RVR which required her to be admitted to the hospital. since being propafenone she has done well. she does endorse history of snoring but denies having had a sleep test. EKG evaluation as per the ED note shows sinus rhythm with unifocal PVCs. EKG 08/22/2022 shows sinus rhythm with no PVCs or any other arrhythmias CT chest from 08/17/2022 shows mild emphysematous changes echocardiogram done in 2008 showed EF of 60% with moderate diastolic dysfunction and RVSP of 40 mmHg with mild TR and mild MR PMH: History reviewed. No pertinent past medical history. PSH: History reviewed. No pertinent surgical history. SH: Social Determinants of Health Tobacco Use: Low Risk (02/04/2023) Patient History Smoking Tobacco Use: Never Smokeless Tobacco Use: Never Passive Exposure: Not on file Alcohol Use: Not on file Financial Resource Strain: Not on file Food Insecurity: Not on file Transportation Needs: Not on file Physical Activity: Not on file Stress: Not on file Social Connections: Not on file Intimate Partner Violence: Not on file Depression: Not on file Housing Stability: Not on file Allergies: Allergies Allergen Reactions Demerol [Meperidine] Weight: 63.1kg Visit Vitals BP 140/80 Comment: patient checked prior to appointment Pulse 78 Resp 12 Ht 1.549 m (5' 1 ) Wt 63 kg (139 lb) SpO2 95% BMI 26.26 kg/m??? Smoking Status Never BSA 1.65 m??? Meds: Current Outpatient Medications on File Prior to Visit Medication Sig Dispense Refill aspirin 81 mg EC tablet Take 81 mg by mouth in the morning. Taking TUE,Tue atorvastatin (Lipitor) 40 mg tablet Take 40 mg by mouth in the morning. calcium citrate-vitamin D3 (Citracal+D) 315 mg-5 mcg (200 unit) tablet Take 1 tablet by mouth in the morning. fluticasone propion-salmeteroL (Advair Diskus) 250-50 mcg/dose diskus inhaler Inhale 1 puff in the morning and at bedtime. Rinse mouth with water after use to reduce aftertaste and incidence of candidiasis. Do not swallow. metoprolol tartrate (Lopressor) 50 mg tablet Take 25 mg by mouth in the morning and at bedtime. pantoprazole (ProtoNix) 20 mg EC tablet Take 20 mg by mouth before breakfast. Do not crush, chew, or split. potassium chloride CR (Klor-Con M20) 20 mEq ER tablet Take 20 mEq by mouth in the morning. Do not crush or chew. propafenone (Rythmol) 150 mg tablet Take 150 mg by mouth every 8 (eight) hours. No current facility-administered medications on file prior to visit. Review of Systems Cardiovascular: Positive for palpitations. Negative for chest pain and dyspnea on exertion. All other systems reviewed and are negative. Physical Exam: Constitutional General Appearance: well-nourished, well-developed, appears stated age Level of Distress: comfortable Psychiatric Mental Status: alert, normal affect Orientation: oriented to time, place, and person Insight: good judgement Eyes Lids and Conjunctivae: non-injected, no xanthelasma ENMT Ears: no lesions on external ear Nose: no lesions on external nose Oropharynx: no cyanosis, no pallor Neck Neck: supple, trachea midline Carotid Arteries: bilateral normal upstroke, no bruits Jugular Veins: normal jugular venous pressure Thyroid: not enlarged Lungs Respiratory Effort: unlabored Chest Exam: normal curvature, no thoracic deformity Auscultation: clear, no wheezing, no rales, no rhonchi Cardiovascular Rate And Rhythm: regular (more content not included)...[facility]10-13-2023 Evaluation note* Encounter Date Diagnosis Assessment Notes Treatment Notes Treatment Clinical Notes Jan, Mucopurulent chronic bronchitis (ICD-10 - J41.1) Push fluids, mucolytics as needed. Trial of Doxycycline qd Jan, Chronic obstructive pulmonary disease with (acute) exacerbation (ICD-10 - J44.1) Continue LABA/ICS - discussed adding GIANNA but not necessary at this time [facility] Other 10-04-2023 Evaluation note* Encounter Date Diagnosis Assessment Notes Treatment Notes Treatment Clinical Notes Jan, Acute bronchitis due to other specified organisms (ICD-10 - J20.8) [facility] Other 10-03-2023 Evaluation note* Encounter Date Diagnosis Assessment Notes Treatment Notes Treatment Clinical Notes Jan, Acute bronchitis due to other specified organisms (ICD-10 - J20.8) [facility] Other 09-26-2023 NoteUT Electrophysiology Consult Note Reason for visit: Palpitations HPI: Holley Vu is a 72 y.o. year old with past medical history of isolated Kramer's palsy, Atrial fibrillation, hyperlipidemia was recently seen in [place] ED for irregular heartbeats. she has been previously diagnosed with A-fib many years ago and has been asymptomatic for quite some time. she had an echocardiogram done in 2008 which was unremarkable and had been placed on propafenone as well as metoprolol. patient states that she has noticed skipped beats but not any fast heart rate. Her first episode of A-fib was in 2008. she was noted to have hypokalemia at that time associated with diuretic use. however there were 3-4 episodes of A-fib with RVR which required her to be admitted to the hospital. since being propafenone she has done well. she does endorse history of snoring but denies having had a sleep test. EKG evaluation as per the ED note shows sinus rhythm with unifocal PVCs. EKG 08/22/2022 shows sinus rhythm with no PVCs or any other arrhythmias CT chest from 08/17/2022 shows mild emphysematous changes echocardiogram done in 2008 showed EF of 60% with moderate diastolic dysfunction and RVSP of 40 mmHg with mild TR and mild MR PMH: No past medical history on file. PSH: No past surgical history on file. SH: Social Determinants of Health Tobacco Use: Not on file Alcohol Use: Not on file Financial Resource Strain: Not on file Food Insecurity: Not on file Transportation Needs: Not on file Physical Activity: Not on file Stress: Not on file Social Connections: Not on file Intimate Partner Violence: Not on file Depression: Not on file Housing Stability: Not on file Allergies: Not on File Weight: No weight available There were no vitals taken for this visit. Meds: No current outpatient medications on file prior to visit. No current facility-administered medications on file prior to visit. ROS: Cardio Basic Cardiovascular Symptoms: no lightheadedness, no leg edema, no syncope, no orthopnea, no PND, no claudication, Constitutional Constitutional: no fever, no night sweats, no significant weight gain, no significant weight loss, no exercise intolerance Eyes Eyes: no dry eyes, no irritation, no vision change ENMT Ears: no difficulty hearing, no ear pain Nose: no frequent nosebleeds, Mouth/Throat: no sore throat, no bleeding gums, no snoring, no dry mouth, no mouth ulcers, no oral abnormalities, no teeth problems Respiratory Respiratory: no cough, no wheezing, no coughing up blood, no sleep apnea Musculoskeletal Musculoskeletal: no muscle aches, no muscle weakness, joint pain+, no back pain, no swelling in the extremities Integumentary Skin no rash, no ulcer, no varicosities, no discoloration, no pruritus Neurologic Neurologic: no loss of consciousness, no weakness, no numbness, no seizures, no dizziness, no headaches Psychiatric Psych: no depression, feeling safe in relationship, no alcohol abuse, Hematologic/Lymphatic Hematologic/Lymphatic no swollen glands, no bruising Physical Exam: Constitutional General Appearance: well-nourished, well-developed, appears stated age Level of Distress: comfortable Psychiatric Mental Status: alert, normal affect Orientation: oriented to time, place, and person Insight: good judgement Eyes Lids and Conjunctivae: non-injected, no xanthelasma ENMT Ears: no lesions on external ear Nose: no lesions on external nose Oropharynx: no cyanosis, no pallor Neck Neck: supple, trachea midline Carotid Arteries: bilateral normal upstroke, no bruits Jugular Veins: normal jugular venous pressure Thyroid: not enlarged Lungs Respiratory Effort: unlabored Chest Exam: normal curvature, no thoracic deformity Auscultation: clear, no wheezing, no rales, no rhonchi Cardiovascular Rate And Rhythm: regular Heart Sounds: normal S1, normal s2, no gallop Systolic Murmur: not heard Diastolic Murmur: not heard Extremities: no cyanosis, no edema, no peripheral signs of emboli Peripheral Pulses Radial Pulse: normal Abdomen Inspection and Palpation: soft, non distended, no bruit, non tender Musculoskeletal Inspection: no joint swelling Neurologic Gait: normal gait, facial droop from Kramer's palsy Skin Inspection and Palpation: warm and dry Nails: no clubbing Labs: @LABRESULTS@ No results found for: CHOLESTEROL TOTAL, HDL, LDL CALC, LDL DIRECT, TRIGLYCERIDES, TSH, T3 TOTAL, T4 TOTAL, THYROID PEROXIDASE AB, BNP, BNP, BNP EKG: No results found for this or any previous visit (from the past 4464 hour(s)). Echo: Stress test: Coronary angiogram: @CATH@ Diagnostic Imaging: No images are attached to the encounter. Assessment and Plan: paroxysmal A-fib PVCs Hypertension Patient has been on treatment with class Ic agent for a long time for A-fib. I believe that her A-fib may have been triggered by hypokalemia sin (more content not included)...[facility]09-06-2023 Evaluation note* Encounter Date Diagnosis Assessment Notes Treatment Notes Treatment Clinical Notes Dec, Moderate persistent asthma without complication (ICD-10 - J45.40) Much improved w/ LABA/ICS - rinse mouth after each use to avoid irritation and thrush - can attempt to wean to qd if tolerates No need for rescue inhaler at this time but may need during episodes of URI Dec, Chronic venous insufficiency (ICD-10 - I87.2) Avoid salt and elevate lower extremities, support stockings, inspect legs and feet daily for blisters and ulcerations. Had episode of bleeding from varicosity Recommend f/u w/ vein clinic Dec, ASHD (arteriosclerotic heart disease) (ICD-10 - I25.10) Coronary atherosclerosis noted on CT chest 2022 Continue primary prevention measures. Healthy diet and exercise Dec, Strain of right hip, subsequent encounter (ICD-10 - S76.011D) Continue daily stretching exercises Continue Tylenol as needed [facility] [employer] Other 05-11-2023 Evaluation note* Encounter Date Diagnosis Assessment Notes Treatment Notes Treatment Clinical Notes August, VALDES (dyspnea on exertion) (ICD-10 - R06.09) August, Bronchiectasis without complication (ICD-10 - J47.9) August, Subacute cough (ICD-10 - R05.2) [employer] Other 05-11-2023 Evaluation note* Encounter Date Diagnosis Assessment Notes Treatment Notes Treatment Clinical Notes August, Persistent cough (ICD-10 - R05.3) August, Bronchiectasis without complication (ICD-10 - J47.9) August, Dyspnea on exertion (ICD-10 - R06.09) [employer] Other 04-03-2023 Evaluation note* Encounter Date Diagnosis Assessment Notes Treatment Notes Treatment Clinical Notes Jul, Hypokalemia (ICD-10 - E87.6) [employer] Other 01-25-2022 Evaluation note* Encounter Date Diagnosis Assessment Notes Treatment Notes Treatment Clinical Notes Apr, Encounter for screening for other viral diseases (ICD-10 - Z11.59) Apr, Other Additional time spent conducting pre-visit phone call, screening for symptoms, instructions on social distancing, application and removal of PPE, and cleaning of examination room, equipment and supplies was preformed. Patient education given for testing methodology and results. Patient care instructions given in writting by [facility] document. [employer] Other Evaluation noteNo InformationNort [employer] Other History general Narrative - Reported* Type Description Date Medical History Persistent cough Medical History Lumbosacral spondylosis with rad iculopathy Medical History Gastroesophageal ref lux disease with esophagitis without hemorrhage Medical History Left leg swelling Medical History Asymptomatic varicose veins of b oth lower extremities Medical History Estrogen deficiency Medical History PAF (paroxysmal atrial fibrillat ion) Medical History Hypokalemia Medical History Hyperlipidemia type II Medical History Lumbar spondylosis Medical History Essential (primary) hypertension Surgical History CATARACT EXTRACTION - BILATERAL Surgical History ARM SURGERY - LEFT Surgical History OPEN REDUCTION AND I NTERNAL FIXATION (ORIF) OF FRACTURE OF LEFT DISTAL RADIUS USING BONE GRAFT 2018 Surgical History SCLEROTHERAPY - RIGHT LEG Surgical History [facility] Hospitalization History SEE SURGICAL HX [employer] Other Summary Purpose Family History No Family History Records FoundNo Family History Records Found Advance Directives No Advanced Directives Records FoundNo Advanced Directives Records Found Additional Source Comments REASON FOR VISIT (unrecogniz ed section and content) #4 RED BAM 4, EXPOSURE, COVI D Nurse Visit- Self PayNo Informationstanding lab orderrefillRe-Send OrdersNo InformationNo InformationRefillrefillupdate on inhaler and legResultsRefillNo InformationNo InformationWants in TomorrowCheck Lungsflu shotmamm order INFORMATION SOURCE (unrecogn ized section and content) DATE CREATED AUTHOR 08/18/2022 [facility] DATE CREATED AUTHOR 'S ORGANIZ ATION 02/14/2023 [facility] FOR RECORDS PERTAINING TO PATIENTS WHO ARE OR HAVE BEEN ENROLLED IN A CHEMICAL DEPENDENCY/SUBSTANCEABUSE PROGRAM, SOME INFORMATION MAY BE OMITTED. This clinical summary was aggregated from multiple sources. Caution should be exercised in using it in the provision of clinical care. This summary normalizes information from multiple sources, and as a consequence, information in this document may materially change the coding, format and clinical context of patient data. In addition, data may be omitted in some cases. CLINICAL DECISIONS SHOULD BE BASED ON THE PRIMARY CLINICAL RECORDS. [facility] provides no warranty or guarantee of the accuracy or completeness of information in this document.
== END 2023-02-14 07:57 | disposition home or self-care (01) ==
LOC: VC 07:57
PROVIDERS: PCP Internal Medicine; Visit Provider Radiology Diagnostic Radiology
DX: I83.813 Varicose veins of bilateral lower extremities with pain (principal)
CPT/HCPCS: 36466

== ENCOUNTER 2023-02-18 08:29 | Outpatient (OUT) | payer MEDICARE, OTHER, SELFPAY ==
--- NOTE | 2023-02-18 08:30 | VEIN_ITS ---
Patient Name: RIGOBERTO ALVARENGA MR#: [id number] : 1950 Exam Date: 02/18/2023 Ordering Doctor: DR ZACH STONE M.D. RADIOLOGY REPORT PROCEDURE: [facility] - OFFICE VISIT FOLLOW UP COMPARISON: [facility], 01/27/2023. [facility], 12/30/2022. PROGRESS NOTES: The patient reports no significant problems following micro foam chemical ablation the left leg. Patient did not require oral analgesics for patient has worn her compression stockings. The patient has followed our recommendations to walk 20-30 minutes once or twice per day since the procedure. Physical exam demonstrates scattered thrombosed varicose veins. Some hemosiderin staining. Moderate amount of reticular and spider veins remain. Mild subcutaneous edema. No erythema or warmth to suggest cellulitis or thrombophlebitis. No active ulceration Review of the ultrasound performed the same day demonstrates occlusive thrombus extending throughout the treated incompetent left leg varicose veins. No residual varicose veins are observed. At this time the patient's treatments are completed. I recommended a 12 month follow-up. The patient was asked to call for any interval issues. VEIN/[facility] IMPRESSION: 1. Successful ablation of treated left leg incompetent varicose veins 2. Treatment plan is complete. PLAN: Follow-up in 12 months Nurse notes, history and physical were reviewed and confirmed, see attached forms. The nurse was present throughout the physical exam and consultation Dictated by: Zach Stone MD on 02/18/2023 at 09:08 Approved by: Zach Stone MD on 02/18/2023 at 09:10
--- NOTE | 2023-02-18 08:30 | VEIN_ITS ---
Patient Name: RIGOBERTO ALVARENGA MR#: [id number] : 1950 Exam Date: 02/18/2023 Ordering Doctor: DR ZACH STONE M.D. RADIOLOGY REPORT PROCEDURE: VC EXT VENOUS LT LIMITED COMPARISON: [facility] EXT VENOUS LT LIMITED, 01/27/2023. INDICATIONS: I80.02 Phlebitis of superficial veins of lt lower extremity TECHNIQUE: Lower extremity schwartz scale and Duplex Doppler evaluation of the deep venous system from the inguinal ligament through the calf veins. FINDINGS: REGION: Left lower extremity. THROMBI: Negative for DVT. Varithena induced thrombus visualized at dist/med calf, medial ankle, and lateral calf. COMPRESSIBILITY: Non-compressible segments corresponding to thrombus FLOW: Areas of absent flow corresponding to thrombus OTHER: No patent varicose veins remain. CONCLUSION: Post ablation occlusion of treated left leg incompetent varicose veins Dictated by: Zach Stone MD on 02/18/2023 at 08:56 Approved by: Zach Stone MD on 02/18/2023 at 08:57
== END 2023-02-18 08:30 | disposition home or self-care (01) ==
LOC: VC 08:29
PROVIDERS: PCP Radiology Diagnostic Radiology; Visit Provider Radiology Diagnostic Radiology
DX: I80.02 Phlebitis and thrombophlebitis of superficial vessels of left lower extremity (principal)
CPT/HCPCS: 93971; G0463

== ENCOUNTER 2023-03-23 09:31 | Outpatient (OUT) | payer MEDICARE, OTHER, SELFPAY ==
--- NOTE | 2023-03-23 09:37 | MM_ITS ---
Patient Name: RIGOBERTO ALVARENGA MR#: [id number] : 1950 Exam Date: 03/23/2023 Ordering Doctor: DR Paulino Swain D.O. RADIOLOGY REPORT PROCEDURE: MM TOMOSYNTHESIS SCREENING BI COMPARISON: MG MAMM SCREEN 3D EUFEMIA CAD, 03/22/2022. MG MAMM SCREEN 3D EUFEMIA CAD, 03/20/2021. INDICATIONS: screening Calculator Name NCI Breast Cancer Risk Assessment Tool 5 Year Breast Cancer Risk 2.10% Lifetime Breast Cancer Risk 6.00% Personal Breast Cancer No Personal Ovarian Cancer No Treatments None Family Cancers None LOCATION: [facility] BREAST COMPOSITION: Extremely dense, which lowers the sensitivity of mammography. FINDINGS: DIAGNOSTIC CATEGORY 2--BENIGN FINDING. NO CHANGE FROM COMPARISON. Scattered benign-appearing calcifications are present. Scattered benign-appearing nodules are present. RIGHT BREAST: No significant suspicious finding. LEFT BREAST: No significant suspicious finding. RECOMMENDATIONS: ROUTINE MAMMOGRAM AND CLINICAL EVALUATION IN 12 MONTHS. PLEASE NOTE: A NORMAL MAMMOGRAM DOES NOT EXCLUDE THE POSSIBILITY OF BREAST CANCER. A CLINICALLY SUSPICIOUS PALPABLE LUMP SHOULD BE BIOPSIED. Dictated by: Zach Stone MD on 03/23/2023 at 11:39 Approved by: Zach Stone MD on 03/23/2023 at 11:41
--- OUTSIDE RECORDS SUMMARY | 2023-03-23 09:51 | XMS_ITS | CCD ---
Author Name Unknown Address [address] [place] [address] Organization [facility] Care Team Providers Care Conciliation Court Judge Name Role Phone YsabelClarkie Unavailable Wiliam, Paulino [...] BETTS LISTED Admitting Unavaila ble REQUEST, DR BETTS LISTED Attending Unavaila ble REQUEST, DR BETTS [...] Attending Unavailable BALL, DR ALBRECHT Consulting Unavailable Zieber, Yadiel Consulting Unavailable PATRICIAARTEMIO Attending Unavailable BARMARY ALANIS Attending Unavailable Allergies Allergy Classification Reported Allergen(s) Allergy Type Date of Onset Reaction(s) Facility (15 sources) Meperidine; Translations: [MEPERIDINE] Drug Allergy 3 Unknown [facility] Repository (1 source) Meperidine Drug Allergy [facility] Repository (2 sources) patient allergy list reviewed by nurse or physicia Propensity to adverse reactions 8 Comment:Done [facility] Other (2 sources) Allergies Reconciled Propensity to adverse reactions Unknown [facility] Other Medications Current Medications Medication Drug Class(es) [...] Coronary arteriosclerosis; Translations: [Atherosclerotic heart disease of yuhaaviatam coronary artery without angina pectoris] Chronic Disorders [...] current use of drug therapy; Translations: [Other longterm (current) drug therapy] Episodic Other circulatory disease [...] Facil ity Office Visiton 02-04-2023 Follow-up visit [id number] Shelia Vu 1950 F Date Provider Department Center 02/04/2023 MARY ROB EL[facility]ECER [facility] No family history on file Level of Service:81110 MO OFFICE/OUTPATIENT ESTABLISHED MOD MDM 30-39 MIN Reason for Visit and Comments: Follow-up [494656] Normal [facility] Office Visiton 12-28-2022 Follow-up visit [id number] Shelia Vu 1950 F Date Provider Department Center 12/28/2022 ARTEMIO BARTLETT ELIECER [facility] No family history on file Level of Service:85299 MO OFFICE/OUTPATIENT NEW HIGH MDM 60-74 MINUTES Normal [facility] CBC AUTO DIFFon 08-17-2022 BASO # 0.0 103/ul Normal 0.0-0.1 [facility] Comment on above: Performed By: #### C RP #### [facility] [address] [address] [address] Lydia Ward Basophils/100 WBC (Bld) 0.7 % Normal 0.2-2.0 [facility] Comment on above: Performed By: #### C RP #### [facility] [address] [place] [address] Dr. Lydia Ward EO # 0.3 103/ul Normal 0.0-0.7 [facility] Comment on above: Performed By: #### C RP #### [facility] [address] [place] [address] Dr. Lydia Ward Eosinophils/100 WBC (Bld) 5.5 % Normal 0.9-7.0 [facility] Comment on above: Performed By: #### C RP #### [facility] [address] [place] [address] Dr. Lydia Ward Erythrocyte distribution wid th (RBC) [Ratio] 12.7 % Normal 11.0-15.0 [facility] Comment on above: Performed By: #### C RP #### [facility] [address] [place] [address] Dr. Lydia Ward Hematocrit (Bld) [Volume fraction] 45.1 % Normal 3 6.0-48.0 [facility] Comment on above: Performed By: #### C RP #### [facility] [address] [place] [address] Dr. Lydia Ward Hemoglobin (Bld) [Mass/Vol] 14.7 g/dL Normal 12.0-16. 0 [facility] Comment on above: Performed By: #### C RP #### [facility] [address] [place] [address] Dr. Lydia Ward IG # 0.01 10e3/ul Normal 0.00-0.03 [facility] Comment on above: Performed By: #### C RP #### [facility] [address] [place] [address] Dr. Lydia Ward IG % 0.2 % Normal 0.0-0.5 [facility] Comment on above: Performed By: #### C RP #### [facility] [address] [place] [address] Dr. Lydia Ward LYMPH # 2.0 103/ul Normal 1.2-3.8 [facility] Comment on above: Performed By: #### C RP #### [facility] [address] [place] [address] Dr. Lydia Ward Lymphocytes/100 WBC (Bld) 33.9 % Normal 20.5-60.0 [facility] Comment on above: Performed By: #### C RP #### [facility] [address] [place] [address] Dr. Lydia Ward MANUAL DIFF REQ NO Normal [facility] Comment on above: Performed By: #### C RP #### [facility] [address] [place] [address] Dr. Lydia Ward MCH (RBC) [Entitic mass] 28.3 pg Normal 26.7-34.0 [facility] Comment on above: Performed By: #### C RP #### [facility] [address] [place] [address] Dr. Lydia Ward MCHC (RBC) [Mass/Vol] 32.6 g/dL Normal 29.9-35.2 [facility] Comment on above: Performed By: #### C RP #### [facility] [address] [place] [address] Dr. Lydia Ward MCV (RBC) [Entitic vol] 86.9 fL Normal 81.0-99.0 [facility] Comment on above: Performed By: #### C RP #### [facility] [address] [place] [address] Dr. Lydia Ward MONO # 0.5 103/ul Normal 0.3-0.8 The [facility] Comment on above: Performed By: #### C RP #### [facility] [address] [place] [address] Dr. Lydia Ward Monocytes/100 WBC (Bld) 9.0 % Normal 1.7-12.0 [facility] Comment on above: Performed By: #### C RP #### [facility] [address] [address] [address] Lydia Ward NEUT # 3.1 103/ul Normal 1.4-6.5 [facility] Comment on above: Performed By: #### C RP #### [facility] [address] [address] [address] Lydia Ward Neutrophils/100 WBC (Bld) 50.7 % Normal 43.0-75.0 [facility] Comment on above: Performed By: #### C RP #### [facility] [address] [address] [address] Lydia Ward Platelet mean volume (Bld) [Entitic vol] 9.1 fL Critically low 9.5-13.5 The [facility] Comment on above: Performed By: #### C RP #### [facility] [address] [place] [address] Dr. Lydia Ward PLT 206 103/ul Normal 150-450 [facility] Comment on above: Performed By: #### C RP #### [facility] [address] [place] [address] Dr. Lydia Ward RBC 5.19 106/ul Normal 4.20-5.40 [facility] Comment on above: Performed By: #### C RP #### [facility] [address] [place] [address] Dr. Lydia Ward WBC 6.0 103/ul Normal 4.0-11.0 [facility] Comment on above: Performed By: #### C RP #### [facility] [address] [place] [address] Dr. Lydia Ward CRPon 08-17-2022 CRP [Mass/Vol] mg/L Normal <=1.0 [facility] Comment on above: Performed By: #### C RP #### [facility] [address] [place] [address] CHEST HI RESOLUTIONon [...] YADIEL CHAPMAN Date: 2022-08-17 09:51 Normal The [facility] l POTASSIUM 08-10-2022 Potassium [Moles/Vol] 4.5 mmol/L Normal 3.5-5.1 [facility] Comment on above: Performed By: #### K #### [facility] [address] [place] [address] Dr. Lydia Ward XR CHEST 2 Von [...] BEULAH RIVAS Date: 2022-08-10 18:46 Normal [facility] XR ANKLE LT 2Von 04-27-2022 XR ANKLE [...] YOLIS SANCHEZ Date: 2022-04-27 19:16 Normal [facility] XR FOOT LT 2Von 04-27-2022 [...] YOLIS SANCHEZ Date: 2022-04-27 19:19 Normal [facility] CBC AUTO DIFFon 03-23-2022 BASO # 0.1 103/ul Normal 0.0-0.1 [facility] Comment on above: Performed By: #### D ATCBC #### [facility] [address] [place], [place] [address] Dr. Lydia Ward Basophils/100 WBC (Bld) 0.5 % Normal 0.2-2.0 [facility] Comment on above: Performed By: #### D ATCBC #### [facility] [address] [place], [place] [address] Dr. Lydia Ward EO # 0.1 103/ul Normal 0.0-0.7 [facility] Comment on above: Performed By: #### D ATCBC #### [facility] [address] [place] [address] Dr. Lydia Ward Eosinophils/100 WBC (Bld) 0.8 % Critically low 0.9-7. 0 [facility] Comment on above: Performed By: #### D ATCBC #### [facility] [address] [place] [address] Dr. Lydia Ward Erythrocyte distribution wid th (RBC) [Ratio] 12.9 % Normal 11.0-15.0 [facility] Comment on above: Performed By: #### D ATCBC #### [facility] [address] [place] [address] Dr. Lydia Ward Hematocrit (Bld) [Volume fraction] 43.5 % Normal 3 6.0-48.0 [facility] Comment on above: Performed By: #### D ATCBC #### [facility] [address] [place] [address] Dr. Lydia Ward Hemoglobin (Bld) [Mass/Vol] 14.3 g/dL Normal 12.0-16. 0 [facility] Comment on above: Performed By: #### D ATCBC #### [facility] [address] [place] [address] Dr. Lydia Ward IG # 0.05 10e3/ul Critically high 0.00-0.03 The [facility] Comment on above: Performed By: #### D ATCBC #### [facility] [address] [place] [address] Dr. Lydia Ward IG % 0.5 % Normal 0.0-0.5 [facility] Comment on above: Performed By: #### D ATCBC #### [facility] [address] [place] [address] Dr. Lydia Ward LYMPH # 2.2 103/ul Normal 1.2-3.8 [facility] Comment on above: Performed By: #### D ATCBC #### [facility] [address] [place] [address] Dr. Lydia Ward Lymphocytes/100 WBC (Bld) 19.7 % Critically low 20.5-6 0.0 [facility] Comment on above: Performed By: #### D ATCBC #### [facility] [address] [place] [address] Dr. Lydia Ward MCH (RBC) [Entitic mass] 29.2 pg Normal 26.7-34.0 [facility] Comment on above: Performed By: #### D ATCBC #### [facility] [address] [place] [address] Dr. Lydia Ward MCHC (RBC) [Mass/Vol] 32.9 g/dL Normal 29.9-35.2 [facility] Comment on above: Performed By: #### D ATCBC #### [facility] [address] [place] [address] Dr. Lydia Ward MCV (RBC) [Entitic vol] 88.8 fL Normal 81.0-99.0 [facility] Comment on above: Performed By: #### D ATCBC #### [facility] [address] [place] [address] Dr. Lydia Ward MONO # 0.9 103/ul Critically high 0.3-0.8 [facility] Comment on above: Performed By: #### D ATCBC #### [facility] [address] [place] [address] Dr. Lydia Ward Monocytes/100 WBC (Bld) 8.2 % Normal 1.7-12.0 [facility] Comment on above: Performed By: #### D ATCBC #### [facility] [address] [place] [address] Dr. Lydia Ward NEUT # 7.8 103/ul Critically high 1.4-6.5 [facility] Comment on above: Performed By: #### D ATCBC #### [facility] [address] [place] [address] Dr. Lydia Ward Neutrophils/100 WBC (Bld) 70.3 % Normal 43.0-75.0 [facility] Comment on above: Performed By: #### D ATCBC #### [facility] [address] [address] [address] Lydia Ward Platelet mean volume (Bld) [Entitic vol] 8.8 fL Critically low 9.5-13.5 [facility] Comment on above: Performed By: #### D ATCBC #### [facility] [address] [address] [address] Lydia Ward PLT 276 103/ul Normal 150-450 [facility] Comment on above: Performed By: #### D ATCBC #### [facility] [address] [address] [address] Lydia Ward RBC 4.90 106/ul Normal 4.20-5.40 [facility] Comment on above: Performed By: #### D ATCBC #### [facility] [address] [place] [address] Dr. Lydia Ward WBC 11.1 103/ul Critically high 4.0-11.0 [facility] Comment on above: Performed By: #### D ATCBC #### [facility] [address] [place] [address] Dr. Lydia Ward RUTH - VITAMIN Don 03-23-2022 VIT D 25-OH 31.3 ng/mL Normal [facility] Comment on above: Performed By: #### C RP #### [facility] [address] [place] [address] Dr. Lydia Ward VIT D RANGES SEE BELOW Normal [facility] Comment on above: Result Comment: <20 ng/mL Vit D deficient 20 - <30 ng/mL Vit D insufficient 30 - 100 ng/mL Vit D sufficient >100 ng/mL Potential Toxicity Performed By: #### C RP #### [facility] [address] [address] [address] Lydia Ward RUTH- BMP WITH LIPIDon 2021 Anion gap [Moles/Vol] 7.6 mmol/L Normal [facility] Comment on above: Performed By: #### C RP #### [facility] [address] [address] [address] Lydia Ward Calcium [Mass/Vol] 9.4 mg/dL Normal 8.5-10.1 [facility] Comment on above: Performed By: #### C RP #### [facility] [address] [address] [address] Lydia Ward Chloride [Moles/Vol] 100 mmol/L Normal 98-107 [facility] Comment on above: Performed By: #### C RP #### [facility] [address] [address] [address] Lydia Ward Cholesterol [Mass/Vol] 126 mg/dL Normal <=200 [facility] Comment on above: Performed By: #### C RP #### [facility] [address] [address] [address] Lydia Ward Cholesterol in HDL [Mass/Vol] 53 mg/dL Normal 40-60 [facility] Comment on above: Performed By: #### C RP #### [facility] [address] [place] [address] Dr. Lydia Ward Cholesterol in LDL [Mass/Vol] 53.6 mg/dL Normal [facility] Comment on above: Performed By: #### C RP #### [facility] [address] [address] [address] Lydia Ward CO2 [Moles/Vol] 34.0 mmol/L Critically high 21.0-32.0 [facility] Comment on above: Performed By: #### C RP #### [facility] [address] [place] [address] Dr. Lydia Ward Creatinine [Mass/Vol] 0.76 mg/dL Normal 0.55-1.02 [facility] Comment on above: Performed By: #### C RP #### [facility] [address] [address] [address] Lydia Ward EGFR-AF JAMAICAN >60 Normal >=60 [facility] Comment on above: Performed By: #### C RP #### [facility] [address] [address] [address] Lydia Ward EGFR-NON AF JAMAICAN >60 Normal >=60 [facility] Comment on above: Performed By: #### C RP #### [facility] [address] [address] [address] Lydia Ward Glucose [Mass/Vol] 83 mg/dL Normal 74-106 The [facility] Comment on above: Performed By: #### C RP #### [facility] [address] [address] [address] Lydia Ward HDL NORMAL > or = 60 mg/dl - LO W CARDIOVASCULAR RISK <40 mg/dl - HIGH CARDIOVASCULAR RISK Normal [facility] Comment on above: Performed By: #### C RP #### [facility] [address] [address] [address] Lydia Ward LDL CALC NORMAL SEE BELOW Normal [facility] Comment on above: Result Comment: <100 mg/dl OPTIMAL 100 - 129 mg/dl NEAR OR ABOVE OPTIMAL 130 - 159 mg/dl BORDERLINE HIGH 160 - 189 mg/dl HIGH >190 mg/dl VERY HIGH Performed By: #### C RP #### [facility] [address] [place] [address] Dr. Lydia Ward Potassium [Moles/Vol] 4.6 mmol/L Normal 3.5-5.1 [facility] Comment on above: Performed By: #### C RP #### [facility] [address] [place] [address] Dr. Lydia Ward Sodium [Moles/Vol] 137 mmol/L Normal 136-145 [facility] Comment on above: Performed By: #### C RP #### [facility] [address] [place] [address] Dr. Lydia Ward Triglyceride [Mass/Vol] 97 mg/dL Normal <=150 [facility] Comment on above: Performed By: #### C RP #### [facility] [address] [place] [address] Dr. Lydia Ward Urea nitrogen [Mass/Vol] 17.0 mg/dL Normal 7.0-18.0 [facility] Comment on above: Performed By: #### C RP #### [facility] [address] [place] [address] Dr. Lydia Ward Urea nitrogen/Creatinine [Mass ratio] 22.4 mg/mg Normal [facility] Comment on above: Performed By: #### C RP #### [facility] [address] [place], [place] [address] Dr. Lydia Ward VLDL CALC 19.4 mg/dL Normal [facility] Comment on above: Performed By: #### C RP #### [facility] [address] [place], [place] [address] Dr. Lydia Ward XR CHEST 2 Von [...] FIGUEROA MENDEZ Date: 2022-03-23 13:51 Normal [facility] MG MAMM SCREEN 3D EUFEMIA CADon 03-22-2022 MG MAMM SCREEN 3D EUFEMIA CAD Patient: HOLLEY VU Exam Date: 03/22/2022 : 1950 Gender:F Ordering : DR PAULINO SWAIN D.O. Admission #: [id number] Family : Order #: [id number] CLICK HERE TO VIEW EXAM RADIOLOGY REPORT [...] Treatments None Family Cancers None LOCATION: [facility] BREAST COMPOSITION: Extremely dense, which lowers the [...] M.D. on 03/23/2022 at 12:22 Normal [facility] POTASSIUMon 11-17-2021 Potassium [Moles/Vol] 4.5 mmol/L Normal 3.5-5.1 [facility] Comment on above: Performed By: #### K #### [facility] [address] [address] [address] Lydia Ward COVCEDRIC Quick Testingon 2021 Result Negative [facility] [place] Other Vital Signs Date Time Vital Sign Value Performing Clinician Facility 01-14-2023 11:15-0400 Body height 160.02 cm Paulino Ball Other [facility] Other 01-14-2023 11:15-0400 Body mass index (BMI) [Ratio] 24.23 kg/m2 Paulino Ball Other [facility] Other 01-14-2023 11:15-0400 Body weight 62.05 kg Paulino Ball Other [facility] Other 01-14-2023 11:15-0400 Diastolic blood pressure 69 mm[Hg] Paulino Ball Other [facility] Other 01-14-2023 11:15-0400 Respiratory rate 12 /min Paulino Ball Other [facility] Other 01-14-2023 11:15-0400 Systolic blood pressure 164 mm[Hg] Paulino Ball Other [facility] Other 12-08-2022 11:30-0400 Body height 160.02 cm Paulino Ball Other [facility] Other 12-08-2022 11:30-0400 Body mass index (BMI) [Ratio] 25.22 kg/m2 Paulino Ball Other [facility] Other 12-08-2022 11:30-0400 Body weight 64.59 kg Paulino Swain Other [facility] Other 12-08-2022 11:30-0400 Diastolic blood pressure 81 mm[Hg] Paulino Swain Other [facility] Other 12-08-2022 11:30-0400 Respiratory rate 12 /min Paulino Swain Other [facility] Other 12-08-2022 11:30-0400 Systolic blood pressure 161 mm[Hg] Paulino Swain Other [facility] Other Encounters Encounter Date Encounter Type Care Provider Facility Start: 03-18-2023 End: 03-18-2023 ambulatory Paulino Swain Other [facility] Other Start: 03-18-2023 Telephone encounter Paulino Swain [facility] Start: 02-23-2023 End: 02-23-2023 ambulatory Paulino Swain Other [facility] Other Start: 02-23-2023 Nursing evaluation o f patient and report Paulino Swain [facility] Start: 02-04-2023 End: 02-04-2023 ambulatory [facility] Start: 01-14-2023 End: 01-14-2023 ambulatory Paulino Wiliam Other [facility] Other Start: 01-14-2023 Office outpatient vi sit 15 minutes Paulino Ball [facility] Start: 01-13-2023 End: 01-13-2023 ambulatory Paulino Ball Other [facility] Other Start: 01-13-2023 Telephone encounter Paulino Ball [facility] Start: 01-05-2023 End: 01-05-2023 ambulatory Paulino Ball Other [facility] Other Start: 01-05-2023 Telephone encounter Paulino Swain [facility] Start: 01-04-2023 End: 01-04-2023 ambulatory Paulino Wiliam Other [facility] Other Start: 01-04-2023 Telephone encounter Paulino Wiliam [facility] Start: 12-28-2022 End: 12-28-2022 ambulatory ARTEMIO [facility] Start: 12-22-2022 End: 12-22-2022 ambulatory Paulino Wiliam Other [facility] Other Start: 12-22-2022 Telephone encounter Paulino Swain [facility] Start: 12-08-2022 End: 12-08-2022 ambulatory Paulino Swain Other [facility] Other Start: 12-08-2022 Office outpatient vi sit 15 minutes Paulino Swain [facility] Start: 12-08-2022 Telephone encounter Paulino Swain [facility] Start: 11-16-2022 End: 11-16-2022 ambulatory Paulino Swain Other [facility] Other Start: 11-16-2022 Telephone encounter Paulino Swain [facility] Start: 11-05-2022 End: 11-05-2022 ambulatory Paulino Swain Other [facility] Other Start: 11-05-2022 Telephone encounter Paulino Swain [facility] Start: 08-19-[address] PAULINO SWAIN Facili ty:[facility] Start: 08-17-2022 End: 08-18-[address] PAULINO SWAIN Facility:[facility] Start: 08-12-2022 End: 08-12-[address] PAULINO SWAIN [facility] Other Start: 08-12-2022 Telephone encounter Paulino Swain [facility] Start: 08-10-2022 End: 08-11-[address] PAULINO SWAIN Facility:[facility] Start: 07-06-2022 End: 07-06-2022 ambulatory Paulino Swain Other [facility] Other Start: 07-06-2022 Telephone encounter Paulino Swain [facility] Start: 07-05-2022 End: 07-05-2022 ambulatory Paulino Wiliam Other [facility] Other Start: 07-05-2022 Telephone encounter Paulino Swain [facility] Start: 04-27-2022 End: 04-28-[address] PAULINO SWAIN Facility:[facility] Start: 04-23-2022 End: 04-23-2022 ambulatory Paulino Swain Other [facility] Other Start: 04-23-2022 Telephone encounter Paulino Swain [facility] Start: 03-23-2022 End: 03-24-[address] PAULINO SWAIN Facility:[facility] Start: 03-22-2022 End: 03-23-[address] PAULINO SWAIN Facility:[facility] Start: 03-22-2022 Adult health examination Grey Swain Other [facility] Other Start: 03-22-2022 Gynecological examination normal Paulino Swain Other [facility] Other Start: 11-17-2021 End: 11-18-[address] PAULINO SWAIN Facility:[facility] Start: 04-28-2021 End: 04-28-2021 ambulatory Gogo Grady Other [facility] Other Start: 04-28-2021 Office outpatient vi sit [...] Immunizations Immunization Date Immunization Notes Care Provider Brent allen 02-23-2023 influenza, high dose seasonal, preservative-free Paulino Swain Other [facility] Other 02-01-2022 influenza virus vaccine, split virus (incl. purified surface antigen) Paulino Swain Other [facility] Other 01-23-2021 influenza virus vaccine, split virus (incl. purified surface antigen) Paulino Swain Other [facility] Other 06-06-2020 COVID-19 Vaccine Pfi zer - Documentation Purposes Only Paulino Swain Other [facility] Other 05-16-2020 COVID-19 Vaccine Pfi zer - Documentation Purposes Only Paulino Swain Other [facility] Other 02-21-2020 pneumococcal polysaccharide vaccine, 23 valent Paulino Swain Other [facility] Other 01-09-2020 influenza virus vaccine, split virus (incl. purified surface antigen) Paulino Swain Other [facility] Other 02-15-2019 pneumococcal conjuga te vaccine, 13 valent Paulino Swain Other [facility] Other 01-30-2019 influenza virus vaccine, split virus (incl. purified surface antigen) Paulino Swain Other [facility] Other 01-24-2017 tetanus and diphther ia toxoids, adsorbed, preservative free, for adult use (5 Lf of tetanus toxoid and 2 Lf of diphtheria toxoid) Paulino Swain Other [facility] Other 02-03-2016 tetanus and diphther ia toxoids, adsorbed, preservative free, for adult use (5 Lf of tetanus toxoid and 2 Lf of diphtheria toxoid) Paulino Swain Other [facility] Other 01-28-2015 tetanus and diphther ia toxoids, adsorbed, preservative free, for adult use (5 Lf of tetanus toxoid and 2 Lf of diphtheria toxoid) Paulino Swain Other [facility] Other 02-22-2014 tetanus and diphther ia toxoids, adsorbed, preservative free, for adult use (5 Lf of tetanus toxoid and 2 Lf of diphtheria toxoid) Paulino Swain Other [facility] Other Payers Date Payer Category Payer Medicare [id number] 2.1 [id number] 1959 Self-pay [id number] 1959 Unknown [id number] 2. [id number] 1952 Unknown [id number] 2.16.84 [id number] 1952 Unknown [id number] 2.16.84 [id number] 1952 Unknown [id number] 2.16.84 0.1.214152.3.579.2.593 1952 Unknown [id number] 2.16.84 0.1.263974.3.579.2.593 1952 Unknown [id number] 2.16.84 0.1.973538.3.579.2.593 1950 Unknown [id number] 2.16.84 0.1.268568.3.579.2.593 1952 Unknown [id number] 2.16.84 0.1.964501.3.579.2.593 1950 Unknown [id number] 2.16.84 0.1.959160.3.579.2.593 Unknown [id number] 2.16.84 [id number] Social History Date Type Detail Facility Sex Assigned At [facility] Other Clinical Notes 04-28-2021 to 03-18-2023 Note Date & Type Note Facility 03-18-2023 Evaluation note Encounter Date Diagnosis Assessment Notes Mar, Screening mammogram, encounter for (ICD-10 - Z12.31) [facility] Other 11-03-2023 Note[facility] Electrophysiology Consult Note Reason [...] Atrial fibrillation, hyperlipidemia was recently seen in [place] ED for irregular heartbeats. she has been [...] Rate And Rhythm: regular (more content not included)...[facility]10-13-2023 Evaluation note* Encounter Date Diagnosis Assessment Notes Treatment Notes Treatment Clinical Notes Jan, Mucopurulent chronic bronchitis (ICD-10 - J41.1) Push fluids, mucolytics as needed. Trial of Doxycycline qd Jan, Chronic obstructive pulmonary disease with (acute) exacerbation (ICD-10 - J44.1) Continue LABA/ICS - discussed adding GIANNA but not necessary at this time [facility] Other 10-04-2023 Evaluation note* Encounter Date Diagnosis Assessment Notes Treatment Notes Treatment Clinical Notes Jan, Acute bronchitis due to other specified organisms (ICD-10 - J20.8) [facility] Other 10-03-2023 Evaluation note* Encounter Date Diagnosis Assessment Notes Treatment Notes Treatment Clinical Notes Jan, Acute bronchitis due to other specified organisms (ICD-10 - J20.8) [facility] Other 09-26-2023 NoteUT Electrophysiology Consult Note Reason for visit: Palpitations HPI: Holley Vu is a 72 y.o. year old with past medical history of isolated Kramer's palsy, Atrial fibrillation, hyperlipidemia was recently seen in [place] ED for irregular heartbeats. she has been [...] triggered by hypokalemia sin (more content not included)...[facility]09-06-2023 Evaluation note* Encounter Date Diagnosis Assessment Notes [...] daily stretching exercises Continue Tylenol as needed [facility] Other 05-11-2023 Evaluation note* Encounter Date Diagnosis Assessment Notes Treatment Notes Treatment Clinical Notes August, VALDES (dyspnea on exertion) (ICD-10 - R06.09) August, Bronchiectasis without complication (ICD-10 - J47.9) August, Subacute cough (ICD-10 - R05.2) [facility] Other 05-11-2023 Evaluation note* Encounter Date Diagnosis Assessment Notes Treatment Notes Treatment Clinical Notes August, Persistent cough (ICD-10 - R05.3) August, Bronchiectasis without complication (ICD-10 - J47.9) August, Dyspnea on exertion (ICD-10 - R06.09) [facility] Other 04-03-2023 Evaluation note* Encounter Date Diagnosis Assessment Notes Treatment Notes Treatment Clinical Notes Jul, Hypokalemia (ICD-10 - E87.6) [facility] Other 01-25-2022 Evaluation note* Encounter Date Diagnosis [...] Patient care instructions given in writting by [facility] document. [facility] Other Evaluation noteNo InformationNort Funny Or Die Other History general Narrative - Reported* Type [...] History EVLT Hospitalization History SEE SURGICAL HX [facility] Other Summary Purpose Family History No Family [...] DATE CREATED AUTHOR 'S ORGANIZ ATION 02/14/2023 [facility] FOR RECORDS PERTAINING TO PATIENTS WHO [...] BE BASED ON THE PRIMARY CLINICAL RECORDS. [facility]. provides no warranty or guarantee of the accuracy or completeness of information in this document.
== END 2023-03-23 09:32 | disposition home or self-care (01) ==
LOC: MAMMO 09:31
PROVIDERS: PCP Internal Medicine; Visit Provider Internal Medicine
DX: Z12.31 Encounter for screening mammogram for malignant neoplasm of breast (principal)
CPT/HCPCS: 77063; 77067

== ENCOUNTER 2023-04-05 08:04 | Outpatient (OUT) | payer MEDICARE, OTHER, SELFPAY ==
--- NOTE | 2023-04-05 08:08 | XR_ITS ---
The [address] [address] Patient Name: RIGOBERTO ALVARENGA MRN: [id number] date: 1950 Sex: F Assigned Patient Location: [facility] Current Patient Location: [facility] Accession/Order Number: [id number] Exam Date: 04/05/2023 08:25 Report Date: 04/05/2023 08:45 At the request of: TRENA HOWARD Procedure: XR DEXA axial skeleton EXAMINATION: XR DEXA axial skeleton, 04/05/2023 8:25 AM EST HISTORY: menopause Z78.0 COMPARISON: 2020, 2018, 2008. TECHNIQUE: Dual-energy X-ray absorptiometry (DEXA) bone density study performed for the axial skeleton. HISTORY: menopause Z78.0 FINDINGS: The bone mineral density AP spine L1-L4 measures 1.234 g/sq cm. T score 0.5. WHO classification: Normal. Lowest bone mineral density is in the left femoral neck measuring 0.799 g/sq cm. T score -1.7. WHO classification: Osteopenia XR/XR DEXA axial skeleton IMPRESSION: WHO classification: Osteopenia. Moderate fracture risk Electronically authenticated by: DARYL OLMEDO Date: 04/05/2023 08:45
--- OUTSIDE RECORDS SUMMARY | 2023-04-05 08:08 | XMS_ITS | CCD ---
Author Name Unknown Address [address] [place] [address] Organization [facility] Care Team Providers Care As400 Operator Name Role Phone YsabelClarkie Unavailable Wiliam, [...] DR ALBRECHT Primary Care Unavailable BALL, DR ALBREHCT Attending Unavailable BALL, DR ALBRECHT Admitting Unavailable BALL, DR ALBRECHT Consulting Unavailable BALL, DR ALBRECHT Primary Care Unavailable MENDEZFIGUEROA Consulting Unavailable BALL, DR ALBRECHT Admitting Unavailable BALL, DR ALBRECHT Attending Unavailable BALL, DR ALBRECHT Consulting Unavailable BALL, DR ALBRECHT Primary Care Unavailable ZiebYadiel kim Consulting Unavailable BALL, DR ALBRECHT Admitting Unavailable BALL, DR ALBRECHT Attending Unavailable BALL, DR ALBRECHT Consulting Unavailable BALL, DR ALBERCHT Primary Care Unavailable BALL, DR ALBRECHT Primary Care Unavailable BALL, DR ALBRECHT Admitting Unavailable BALL, DR ALBRECHT Attending Unavailable BALL, DR ALBRECHT Consulting Unavailable ZieberYadiel Consulting Unavailable PATRICIAARTEMIO Attending Unavailable BARMARY ALANIS Attending Unavailable Allergies Allergy Classification Reported Allergen(s) Allergy Type Date of Onset Reaction(s) Facility (18 sources) Meperidine; Translations: [MEPERIDINE] Drug Allergy 3 Unknown [facility] Repository (1 source) Meperidine Drug Allergy [facility] Repository (2 sources) patient allergy list reviewed by nurse or physicia Propensity to adverse reactions 8 Comment:Done [facility] Other (2 sources) Allergies Reconciled Propensity to adverse reactions Unknown [facility] Other Medications Current Medications Medication Drug Class(es) Dates Sig (Normalized) Sig (Original) AeroChamber Mini Chamber - (3 sources) Start: 03-23-2023 AeroChamber Mini Chamber - Use w/ MDI inhaled bid for 365 days Mar, Active atorvastatin 40 mg oral tablet (19 sources) HMG-CoA Reductase Inhibitor Start: 07-05-2022 take 1 tablet by mouth in the evening Atorvastatin Calcium 40 MG 1 tablet Orally in the evening Jul, Active calcium carbonate 1500 mg / cholecalciferol 0.01 mg oral tablet (10 sources) Vitamin D Start: 12-22-2022 take 1 tablet by mouth every twelve hours Calcium + Vitamin D3 600-10 MG-MCG 1 tablet with food Orally Twice a day for 90 days Dec, Active etodolac 400 mg oral tablet (11 sources) Nonsteroidal Anti-inflammatory Drug Start: 08-10-2022 take 1 tablet by mouth every twelve hours Etodolac 400 MG 1 tablet with food Orally Twice a day August, Active 120 actuat fluticasone propionate 0.115 mg/actuat / salmeterol 0.021 mg/actuat metered dose inhaler (17 sources) Corticosteroid, beta2-Adrenergic Agonist Start: 03-23-2023 take 2 puff(s) by inhalation twice daily Advair HFA 115-21 MCG/ACT 2 puffs Inhalation Twice a day for 30 days Mar, Active Start: 08-25-2022 take 1 puff(s) by mo uth twice daily Fluticasone-Salmeterol 250-50 MCG/ACT 1 puff, rinse mouth after use Inhalation Twice a day August, Active metoprolol tartrate 50 mg oral tablet (13 sources) beta-Adrenergic Shania Start: 11-16-2022 take 1 tablet by mouth every twelve hours Metoprolol Tartrate 50 MG 1 tablet with food Orally Twice a day Nov, Active pantoprazole 20 mg delayed release oral tablet (14 sources) Proton Pump Inhibitor Start: 11-05-2022 take 1 tablet by mouth every twenty-four hours Pantoprazole Sodium 20 MG 1 tablet Orally Once a day Nov, Active microencapsulated potassium chloride 20 meq extended release oral tablet (19 sources) Start: 07-05-2022 take 1 tablet by mouth three times daily at mealtime Klor-Con M20 20 MEQ 1 tablet with food Orally three times daily Jul, Active propafenone hydrochloride 150 mg oral tablet (14 sources) Antiarrhythmic Start: 10-08-2022 take 1 tablet by mouth three times daily Propafenone HCl 150 MG 1 tablet Orally three times daily Oct, Active Completed/Discontinued Medications Medication Drug Class(es) Dates Sig (Normalized) Sig (Original) amoxicillin 875 mg oral tablet (8 sources) Penicillin-class Antibacterial Start: 01-05-2023 take 1 tablet by mouth every twelve hours Amoxicillin 875 MG 1 tablet Orally Twice a day for 7 days Jan, Not-Taking/PRN doxycycline hyclate 100 mg oral capsule (9 sources) Tetracycline-class Drug Start: 01-04-2023 take 1 capsule by mouth every twelve hours Doxycycline Hyclate 100 MG 1 capsule Orally Twice a day for 7 days Jan, Not-Taking/PRN Problems Active Problems Problem Classification Problem Date [...] Episodic Coronary atherosclerosis and other heart disease (14 sources) Coronary arteriosclerosis; Translations: [Atherosclerotic heart disease of [place] coronary artery without angina pectoris] Chronic Disorders of lipid metabolism (20 sources) Pure hypercholesterolemia; Translations: [Familial hypercholesterolemia] Onset: 7 Chronic Esophageal disorders (9 sources) Gastro-esophageal reflux disease with esophagitis; Translations: [Gastroesophageal reflux disease with esophagitis without hemorrhage] Chronic Essential hypertension (17 sources) Essential hypertension; Translations: [Essential (primary) hypertension] Chronic Fluid and electrolyte disorders (20 sources) Hypokalemia; Translations: [Hypokalemia] Onset: 3 Episodic Immunizations and screening for infectious disease (3 sources) Encounter for screening for other viral diseases; Translations: [Vaccination given] Onset: 2 Resolved: 2 Episodic Menopausal disorders (19 sources) Decreased estrogen level; 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 Other aftercare (2 sources) Long-term current use of drug therapy; Translations: [Other correction (current) drug therapy] Episodic Other circulatory disease (2 sources) Elevated blood-pressure reading without diagnosis of hypertension; Translations: [Elevated blood-pressure reading, without diagnosis of hypertension] Episodic Other connective tissue disease (19 sources) Disorder of soft tissue; Translations: [Other specified soft tissue disorders] Episodic Other diseases of veins and lymphatics (12 sources) Peripheral venous insufficiency; Translations: [Venous insufficiency (chronic) (peripheral)] Episodic Other diseases of veins and lymphatics (2 sources) Venous insufficiency (chronic) (peripheral) Episodic Other injuries and conditions due to external causes (2 sources) History of fall; Translations: [History of falling] Episodic Other lower respiratory disease (17 sources) Persistent cough; Translations: [Persistent cough] Episodic Other lower respiratory disease (3 sources) Other forms of dyspnea; Translations: [OTHER FORMS OF DYSPNEA] Onset: 3 Episodic Other lower respiratory disease (6 sources) Chronic cough; Translations: [Chronic cough] Onset: 2 Episodic Other screening for suspected conditions (not mental disorders or infectious disease) (12 sources) Encounter for screening mammogram for malignant neoplasm of breast; Translations: [Blood chemistry abnormal] Onset: 7 Resolved: 0 Episodic Phlebitis; thrombophlebitis and thromboembolism (4 sources) Thrombophlebitis of superficial veins of lower extremity; Translations: [Phlebitis and thrombophlebitis of superficial vessels of left lower extremity] Episodic Residual codes; unclassified (2 sources) Postmenopausal state; Translations: [Asymptomatic menopausal state] Episodic Residual codes; unclassified (1 source) Asymptomatic menopausal state Episodic Spondylosis; intervertebral disc disorders; other back [...] Onset: 3 Varicose veins of lower extremity (20 sources) Varicose veins of bilateral lower limbs; Translations: [Asymptomatic varicose veins of bilateral lower extremities] Episodic Past or Other Problems Problem Classification Problem Date Documented Da te Episodic/Chronic Esophageal disorders (11 sources) Esophageal disorders; Translations: [Gastroesophageal reflux disease [...] Results Test Name Value Interpretation Reference Range Facility Office Visiton 02-04-2023 Follow-up visit [id number] Shelia Vu 1950 F Date Provider Department Center 02/04/2023 1596-MARY DAY CARD [facility] No family history on file Level of Service:97550 [place] OFFICE/OUTPATIENT ESTABLISHED MOD MDM 30-39 MIN Reason for Visit and Comments: Follow-up [403707] Normal [facility] Office Visiton 12-28-2022 Follow-up visit [id number] Shelia Vu odell 1950 F Date Provider Department Center 12/28/2022 [facility] No family history on file Level of Service:57139 [place] OFFICE/OUTPATIENT NEW HIGH MDM 60-74 MINUTES Normal [facility] CBC AUTO DIFFon 08-17-2022 BASO # 0.0 103/ul Normal 0.0-0.1 [facility] Comment on above: Performed By: #### C RP #### [facility] [address] [address] [address] Lydia Ward Basophils/100 WBC (Bld) 0.7 % Normal 0.2-2.0 [facility] Comment on above: Performed By: #### C RP #### [facility] [address] [address] [address] Lydia Ward EO # 0.3 103/ul Normal 0.0-0.7 [facility] Comment on above: Performed By: #### C RP #### [facility] [address] [address] [address] Lydia Ward Eosinophils/100 WBC (Bld) 5.5 % Normal 0.9-7.0 [facility] Comment on above: Performed By: #### C RP #### [facility] [address] [address] [address] Lydia Ward Erythrocyte distribution width (RBC) [Ratio] 12.7 % Normal 11.0-15.0 [facility] Comment on above: Performed By: #### C RP #### [facility] [address] [address] [address] Lydia Ward Hematocrit (Bld) [Volume fraction] 45.1 % Normal 36.0-48.0 [facility] Comment on above: Performed By: #### C RP #### [facility] [address] [address] [address] Lydia Ward Hemoglobin (Bld) [Mass/Vol] 14.7 g/dL Normal 12.0-16.0 [facility] Comment on above: Performed By: #### C RP #### [facility] [address] [place] [address] Dr. Lydia Ward IG # 0.01 10e3/ul Normal 0.00-0.03 [facility] Comment on above: Performed By: #### C RP #### [facility] [address] [place] [address] Dr. Lydia Ward IG % 0.2 % Normal 0.0-0.5 [facility] Comment on above: Performed By: #### C RP #### [facility] [address] [place] [address] Dr. Lydia Ward LYMPH # 2.0 103/ul Normal 1.2-3.8 [facility] Comment on above: Performed By: #### C RP #### [facility] [address] [place] [address] Dr. Lydia Ward Lymphocytes/100 WBC (Bld) 33.9 % Normal 20.5-60.0 [facility] Comment on above: Performed By: #### C RP #### [facility] [address] [place] [address] Dr. Lydia Ward MANUAL DIFF REQ NO Normal [facility] Comment on above: Performed By: #### C RP #### [facility] [address] [place] [address] Dr. Lydia Ward MCH (RBC) [Entitic mass] 28.3 pg Normal 26.7-34.0 [facility] Comment on above: Performed By: #### C RP #### [facility] [address] [place] [address] Dr. Lydia Ward MCHC (RBC) [Mass/Vol] 32.6 g/dL Normal 29.9-35.2 [facility] Comment on above: Performed By: #### C RP #### [facility] [address] [place] [address] Dr. Lydia Ward MCV (RBC) [Entitic vol] 86.9 fL Normal 81.0-99.0 [facility] Comment on above: Performed By: #### C RP #### [facility] [address] [place] [address] Dr. Lydia Ward MONO # 0.5 103/ul Normal 0.3-0.8 [facility] Comment on above: Performed By: #### C RP #### [facility] [address] [place] [address] Dr. Lydia Ward Monocytes/100 WBC (Bld) 9.0 % Normal 1.7-12.0 [facility] Comment on above: Performed By: #### C RP #### [facility] [address] [place] [address] Dr. Lydia Ward NEUT # 3.1 103/ul Normal 1.4-6.5 [facility] Comment on above: Performed By: #### C RP #### [facility] [address] [place] [address] Dr. Lydia Ward Neutrophils/100 WBC (Bld) 50.7 % Normal 43.0-75.0 [facility] Comment on above: Performed By: #### C RP #### [facility] [address] [place] [address] Dr. Lydia Ward Platelet mean volume (Bld) [Entitic vol] 9.1 fL Critically low 9.5-13.5 [facility] Comment on above: Performed By: #### C RP #### [facility] [address] [place] [address] Dr. Lydia Ward PLT 206 103/ul Normal 150-450 [facility] Comment on above: Performed By: #### C RP #### [facility] [address] [place] [address] Dr. Lydia Ward RBC 5.19 106/ul Normal 4.20-5.40 [facility] Comment on above: Performed By: #### C RP #### [facility] [address] [place] [address] Dr. Lydia Ward WBC 6.0 103/ul Normal 4.0-11.0 [facility] Comment on above: Performed By: #### C RP #### [facility] [address] [place] [address] Dr. Lydia Ward CRPon 08-17-2022 CRP [Mass/Vol] mg/L Normal <=1.0 [facility] Comment on above: Performed By: #### C RP #### [facility] [address] [place] [address] CHEST HI RESOLUTIONon CT CHEST HI RESOLUTION EXAMINATION: CT CHEST HI RESOLUTION HISTORY: Chronic cough COMPARISON: No [...] by: YADIEL CHAPMAN Date: 2022-08-17 09:51 Normal [facility] POTASSIUMon 08-10-2022 Potassium [Moles/Vol] 4.5 mmol/L Normal 3.5-5.1 [facility] Comment on above: Performed By: #### K #### [facility] [address] [place] [address] Dr. Lydia Ward XR CHEST 2 Von [...] BEULAH RIVAS Date: 2022-08-10 18:46 Normal [facility] XR ANKLE LT 2Von 04-27-2022 XR [...] YOLIS SANCHEZ Date: 2022-04-27 19:16 Normal [facility] XR FOOT LT 2Von 04-27-2022 XR FOOT [...] YOLIS SANCHEZ Date: 2022-04-27 19:19 Normal [facility] CBC AUTO DIFFon 03-23-2022 BASO # 0.1 103/ul Normal 0.0-0.1 [facility] Comment on above: Performed By: #### D ATCBC #### [facility] [address] [place] [address] Dr. Yilan Ward Basophils/100 WBC (Bld) 0.5 % Normal 0.2-2.0 [facility] Comment on above: Performed By: #### D ATCBC #### [facility] [address] [place] [address] Dr. Lydia Ward EO # 0.1 103/ul Normal 0.0-0.7 [facility] Comment on above: Performed By: #### D ATCBC #### [facility] [address] [place] [address] Dr. Lydia Ward Eosinophils/100 WBC (Bld) 0.8 % Critically low 0.9-7.0 [facility] Comment on above: Performed By: #### D ATCBC #### [facility] [address] [place] [address] Dr. Lydia Ward Erythrocyte distribution width (RBC) [Ratio] 12.9 % Normal 11.0-15.0 [facility] Comment on above: Performed By: #### D ATCBC #### [facility] [address] [place] [address] Dr. Lydia Ward Hematocrit (Bld) [Volume fraction] 43.5 % Normal 36.0-48.0 [facility] Comment on above: Performed By: #### D ATCBC #### [facility] [address] [place] [address] Dr. Lydia Ward Hemoglobin (Bld) [Mass/Vol] 14.3 g/dL Normal 12.0-16.0 [facility] Comment on above: Performed By: #### D ATCBC #### [facility] [address] [place] [address] Dr. Lydia Ward IG # 0.05 10e3/ul Critically high 0.00-0.03 [facility] Comment on above: Performed By: #### D ATCBC #### [facility] [address] [place] [address] Dr. Lydia Ward IG % 0.5 % Normal 0.0-0.5 [facility] Comment on above: Performed By: #### D ATCBC #### [facility] [address] [place], [place] [id number] Dr. Lydia Ward LYMPH # 2.2 103/ul Normal 1.2-3.8 [facility] Comment on above: Performed By: #### D ATCBC #### [facility] [address] [place] [address] Dr. Lydia Ward Lymphocytes/100 WBC (Bld) 19.7 % Critically low 20.5-60.0 [facility] Comment on above: Performed By: #### D ATCBC #### [facility] [address] [place] [address] Dr. Lydia Ward MCH (RBC) [Entitic mass] 29.2 pg Normal 26.7-34.0 [facility] Comment on above: Performed By: #### D ATCBC #### [facility] [address] [place] [address] Dr. Lydia Ward MCHC (RBC) [Mass/Vol] 32.9 g/dL Normal 29.9-35.2 [facility] Comment on above: Performed By: #### D ATCBC #### [facility] [address] [place] [address] Dr. Lydia Ward MCV (RBC) [Entitic vol] 88.8 fL Normal 81.0-99.0 [facility] Comment on above: Performed By: #### D ATCBC #### [facility] [address] [place] [address] Dr. Lydia Ward MONO # 0.9 103/ul Critically high 0.3-0.8 [facility] Comment on above: Performed By: #### D ATCBC #### [facility] [address] [place] [address] Dr. Lydia Ward Monocytes/100 WBC (Bld) 8.2 % Normal 1.7-12.0 [facility] Comment on above: Performed By: #### D ATCBC #### [facility] [address] [place] [address] Dr. Lydia Ward NEUT # 7.8 103/ul Critically high 1.4-6.5 [facility] Comment on above: Performed By: #### D ATCBC #### [facility] [address] [address] [address] Lydia Ward Neutrophils/100 WBC (Bld) 70.3 % Normal 43.0-75.0 [facility] Comment on above: Performed By: #### D ATCBC #### [facility] [address] [address] [address] Lydia Ward Platelet mean volume (Bld) [Entitic vol] 8.8 fL Critically low 9.5-13.5 [facility] Comment on above: Performed By: #### D ATCBC #### [facility] [address] [address] [address] Lydia Ward PLT 276 103/ul Normal 150-450 [facility] Comment on above: Performed By: #### D ATCBC #### [facility] [address] [place] [address] Dr. Lydia Ward RBC 4.90 106/ul Normal 4.20-5.40 [facility] Comment on above: Performed By: #### D ATCBC #### [facility] [address] [place] [address] Dr. Lydia Ward WBC 11.1 103/ul Critically high 4.0-11.0 [facility] Comment on above: Performed By: #### D ATCBC #### [facility] [address] [place] [address] Dr. Lydia Ward RUTH - VITAMIN Don 03-23-2022 VIT D 25-OH 31.3 ng/mL Normal [facility] Comment on above: Performed By: #### C RP #### [facility] [address] [place] [address] Dr. Lydia Ward VIT D RANGES SEE BELOW Normal [facility] Comment on above: Result Comment: <20 ng/mL Vit D deficient 20 - <30 ng/mL Vit D insufficient 30 - 100 ng/mL Vit D sufficient >100 ng/mL Potential Toxicity Performed By: #### C RP #### [facility] [address] [place] [address] Dr. Lydia Ward RUTH- BMP WITH LIPIDon 2021 Anion gap [Moles/Vol] 7.6 mmol/L Normal [facility] Comment on above: Performed By: #### C RP #### [facility] [address] [address] [address] Lydia Ward Calcium [Mass/Vol] 9.4 mg/dL Normal 8.5-10.1 [facility] Comment on above: Performed By: #### C RP #### [facility] [address] [address] [address] Lydia Ward Chloride [Moles/Vol] 100 mmol/L Normal 98-107 [facility] Comment on above: Performed By: #### C RP #### [facility] [address] [address] [address] Lydia Ward Cholesterol [Mass/Vol] 126 mg/dL Normal <=200 [facility] Comment on above: Performed By: #### C RP #### [facility] [address] [place] [address] Dr. Lydia Ward Cholesterol in HDL [Mass/Vol] 53 mg/dL Normal 40-60 [facility] Comment on above: Performed By: #### C RP #### [facility] [address] [address] [address] Lydia Ward Cholesterol in LDL [Mass/Vol] 53.6 mg/dL Normal [facility] Comment on above: Performed By: #### C RP #### [facility] [address] [place] [address] Dr. Lydia Ward CO2 [Moles/Vol] 34.0 mmol/L Critically high 21.0-32.0 [facility] Comment on above: Performed By: #### C RP #### [facility] [address] [address] [address] Lydia aWrd Creatinine [Mass/Vol] 0.76 mg/dL Normal 0.55-1.02 [facility] Comment on above: Performed By: #### C RP #### [facility] [address] [address] [address] Lydia Ward EGFR-AF [place] >60 Normal >=60 [facility] Comment on above: Performed By: #### C RP #### [facility] [address] [address] [address] Lydia Ward EGFR-NON AF [place] >60 Normal >=60 [facility] Comment on above: Performed By: #### C RP #### [facility] [address] [address] [address] Lydia Ward Glucose [Mass/Vol] 83 mg/dL Normal 74-106 [facility] Comment on above: Performed By: #### C RP #### [facility] [address] [address] [address] Lydia Ward HDL NORMAL > or = 60 mg/dl - LO W CARDIOVASCULAR RISK <40 mg/dl - HIGH CARDIOVASCULAR RISK Normal [facility] Comment on above: Performed By: #### C RP #### [facility] [address] [address] [address] Lydia Ward LDL CALC NORMAL SEE BELOW Normal [facility] Comment on above: Result Comment: <100 mg/dl OPTIMAL 100 - 129 mg/dl NEAR OR ABOVE OPTIMAL 130 - 159 mg/dl BORDERLINE HIGH 160 - 189 mg/dl HIGH >190 mg/dl VERY HIGH Performed By: #### C RP #### [facility] [address] [address] [address] Lydia Ward Potassium [Moles/Vol] 4.6 mmol/L Normal 3.5-5.1 [facility] Comment on above: Performed By: #### C RP #### [facility] [address] [address] [address] Lydia Ward Sodium [Moles/Vol] 137 mmol/L Normal 136-145 [facility] Comment on above: Performed By: #### C RP #### [facility] [address] [address] [address] Lydia Ward Triglyceride [Mass/Vol] 97 mg/dL Normal <=150 [facility] Comment on above: Performed By: #### C RP #### [facility] Laboratory [address] [address] [address] Lydia Ward Urea nitrogen [Mass/Vol] 17.0 mg/dL Normal 7.0-18.0 [facility] Comment on above: Performed By: #### C RP #### [facility] [address], [place] [address] Dr. Lydia Ward Urea nitrogen/Creatini ne [Mass ratio] 22.4 mg/mg Normal [facility] Comment on above: Performed By: #### C RP #### [facility] [address], [place] [address] Dr. Lydia Ward VLDL CALC 19.4 mg/dL Normal [facility] Comment on above: Performed By: #### C RP #### [facility] [address], [place] [address] Dr. Lydia Ward XR CHEST 2 Von [...] FIGUEROA MENDEZ Date: 2022-03-23 13:51 Normal [facility] MG MAMM SCREEN 3D EUFEMIA CADon 03-22-2022 MG MAMM SCREEN 3D EUFEMIA CAD Patient: HOLLEY VU Exam Date: 03/22/2022 : 1950 Gender:F Ordering : DR PAULINO SWAIN D.O. Admission #: [id number] Family : Order #: [id number] CLICK HERE TO VIEW EXAM RADIOLOGY REPORT [...] Treatments None Family Cancers None LOCATION: [facility] BREAST COMPOSITION: Extremely dense, which lowers [...] Chapman M.D. on 03/23/2022 at 12:22 Normal [facility] POTASSIUMon 11-17-2021 Potassium [Moles/Vol] 4.5 mmol/L Normal 3.5-5.1 [facility] Comment on above: Performed By: #### K #### [facility] [address] [place] [address] Dr. Lydia SHEIKH Quick Testingon 2021 Result Negative [facility] Other Vital Signs Date Time Vital Sign Value Performing Clinician Facility 03-23-2023 13:30-0500 Body height 160.02 cm Paulino [employer] Other [facility] Other 03-23-2023 13:30-0500 Body mass index (BMI) [Ratio] 24.83 kg/m2 [facility]ino [employer] Other [facility] Other 03-23-2023 13:30-0500 Body weight 63.59 kg Paulino Ball Other [facility] Other 03-23-2023 13:30-0500 Diastolic blood pressure 70 mm[Hg] Paulino Ball Other [facility] Other 03-23-2023 13:30-0500 Respiratory rate 12 /min Paulino [employer] Other [facility] Other 03-23-2023 13:30-0500 Systolic blood pressure 146 mm[Hg] Paulino Ball Other [facility] Other 01-14-2023 11:15-0400 Body height 160.02 cm Paulino [employer] Other [facility] Other 01-14-2023 11:15-0400 Body mass index (BMI) [Ratio] 24.23 kg/m2 Paulino Ball Other [facility] Other 01-14-2023 11:15-0400 Body weight 62.05 kg Paulino Ball Other [facility] Other 01-14-2023 11:15-0400 Diastolic blood pressure 69 mm[Hg] Paulino Ball Other [facility] Other 01-14-2023 11:15-0400 Respiratory rate 12 /min Paulino Ball Other [facility] Other 01-14-2023 11:15-0400 Systolic blood pressure 164 mm[Hg] Paulino Ball Other [facility] Other 12-08-2022 11:30-0400 Body height 160.02 cm Paulino Ball Other [facility] Other 12-08-2022 11:30-0400 Body mass index (BMI) [Ratio] 25.22 kg/m2 Paulino Ball Other [facility] Other 12-08-2022 11:30-0400 Body weight 64.59 kg Paulino Ball Other [facility] Other 12-08-2022 11:30-0400 Diastolic blood pressure 81 mm[Hg] Paulino Ball Other [facility] Other 12-08-2022 11:30-0400 Respiratory rate 12 /min Paulino Ball Other [facility] Other 12-08-2022 11:30-0400 Systolic blood pressure 161 mm[Hg] Paulino Ball Other [facility] Other Encounters Encounter Date Encounter Type Care Provider Facility Start: 03-24-2023 End: 03-24-2023 ambulatory Paulino Swain Other [facility] Other Start: 03-24-2023 Telephone encounter Paulino Swain [facility] Start: 03-23-2023 End: 03-23-2023 ambulatory Paulino Swain Other [facility] Other Start: 03-23-2023 Patient encounter procedure Paulino Swain [facility] Start: 03-23-2023 Telephone encounter Paulino Swain [facility] Start: 03-18-2023 End: 03-18-2023 ambulatory Paulino Swain Other [facility] Other Start: 03-18-2023 Telephone encounter Paulino Swain [facility] Start: 02-23-2023 End: 02-23-2023 ambulatory Paulino Swain Other [facility] Other Start: 02-23-2023 Nursing evaluation o f patient and report Paulino Swain [facility] Start: 02-04-2023 End: 02-04-2023 ambulatory [facility] Start: 01-14-2023 End: 01-14-2023 ambulatory Paulino Swain Other [facility] Other Start: 01-14-2023 Office outpatient vi sit 15 minutes Paulino Swain [facility] Start: 01-13-2023 End: 01-13-2023 ambulatory Paulino Wiliam Other [facility] Other Start: 01-13-2023 Telephone encounter Paulino Swain [facility] Start: 01-05-2023 End: 01-05-2023 ambulatory Paulino Swain Other [facility] Other Start: 01-05-2023 Telephone encounter Paulino Swain [facility] Start: 01-04-2023 End: 01-04-2023 ambulatory Paulino Swain Other [facility] Other Start: 01-04-2023 Telephone encounter Paulino Swain [facility] Start: 12-28-2022 End: 12-28-2022 ambulatory [facility] Start: 12-22-2022 End: 12-22-2022 ambulatory Paulino Swain Other [facility] Other Start: 12-22-2022 Telephone encounter Paulino Swain [facility] Start: 12-08-2022 End: 12-08-2022 ambulatory Paulino Swain Other [facility] Other Start: 12-08-2022 Office outpatient vi sit 15 minutes Paulino Swain [facility] Start: 12-08-2022 Telephone encounter Paulino Swain [facility] Start: 11-16-2022 End: 11-16-2022 ambulatory Paulino Swain Other [facility] Other Start: 11-16-2022 Telephone encounter Paulino Swain [facility] Start: 11-05-2022 End: 11-05-2022 ambulatory Paulino Wiliam Other [facility] Other Start: 11-05-2022 Telephone encounter Paulino Wiliam [facility] Start: 08-19-[address] PAULINO SWAIN Facili ty:[facility] Start: 08-17-2022 End: 08-18-[address] PAULINO SWAIN Facility:[facility] Start: 08-12-2022 End: 08-12-[address] PAULINO SWAIN [facility] Other Start: 08-12-2022 Telephone encounter Paulino Swain [facility] Start: 08-10-2022 End: 08-11-[address] PAULINO SWAIN Facility:[facility] Start: 07-06-2022 End: 07-06-2022 ambulatory Paulino Swain Other [facility] Other Start: 07-06-2022 Telephone encounter [facility] Start: 07-05-2022 End: 07-05-2022 ambulatory Paulino Swain Other [facility] Other Start: 07-05-2022 Telephone encounter [facility] Start: 04-27-2022 End: 04-28-[address] PAULINO SWAIN Facility:[facility] Start: 04-23-2022 End: 04-23-2022 ambulatory Paulino Swain Other [facility] Other Start: 04-23-2022 Telephone encounter [facility] Start: 03-23-2022 End: 03-24-[address] PAULINO SWAIN Facility:[facility] Start: 03-22-2022 End: 03-23-[address] PAULINO SWAIN Facility:[facility] Start: 03-22-2022 Adult health examination Grey Swain Other [facility] Other Start: 03-22-2022 Gynecological examination normal Paulino Swain Other [facility] Other Start: 11-17-2021 End: 11-18-[address] PAULINO SWAIN Facility:[facility] Start: 04-28-2021 End: 04-28-2021 ambulatory Gogo Grady Other [facility] Other Start: 04-28-2021 Office outpatient vi sit 5 minutes Gogo Grady [facility] Procedures Date Procedure Procedure Detail Performing Clinician Start: 10-20-2016 General examination of patient Paulino Swain Other Start: 10-20-2016 Screening mammography B enjapedro Swian Other Depression screening Nafisa Swain Other Screening for malign ant neoplasm of breast Paulino Swain Other Screening for malign ant neoplasm of colon Paulino Swain Other Immunizations Immunization Date Immunization Notes Care Provider Brent allen 02-23-2023 influenza, high dose seasonal, preservative-free Paulino Wiliam Other [facility] Other 02-01-2022 influenza virus vaccine, split virus (incl. purified surface antigen) Paulino Wiliam Other [facility] Other 01-23-2021 influenza virus vaccine, split virus (incl. purified surface antigen) Paulino Wiliam Other [facility] Other 06-06-2020 COVID-19 Vaccine Pfi zer - Documentation Purposes Only Paulino Wiliam Other [facility] Other 05-16-2020 COVID-19 Vaccine Pfi zer - Documentation Purposes Only Paulino Wiliam Other [facility] Other 02-21-2020 pneumococcal polysaccharide vaccine, 23 valent Paulino Swain Other [facility] Other 01-09-2020 influenza virus vaccine, split virus (incl. purified surface antigen) Paulino Wiliam Other [facility] Other 02-15-2019 pneumococcal conjuga te vaccine, 13 valent Paulino Swain Other [facility] Other 01-30-2019 influenza virus vaccine, split virus (incl. purified surface antigen) Paulino Wiliam Other [facility] Other 01-24-2017 tetanus and diphther ia toxoids, adsorbed, preservative free, for adult use (5 Lf of tetanus toxoid and 2 Lf of diphtheria toxoid) Paulino Swain Other [facility] Other 02-03-2016 tetanus and diphther ia toxoids, adsorbed, preservative free, for adult use (5 Lf of tetanus toxoid and 2 Lf of diphtheria toxoid) Paulino Swain Other [facility] Other 01-28-2015 tetanus and diphther ia toxoids, adsorbed, preservative free, for adult use (5 Lf of tetanus toxoid and 2 Lf of diphtheria toxoid) Paulino Swain Other [facility] Other 02-22-2014 tetanus and diphther ia toxoids, adsorbed, preservative free, for adult use (5 Lf of tetanus toxoid and 2 Lf of diphtheria toxoid) Paulino Swain Other [facility] Other Payers Date Payer Category Payer Medicare [id number] 2.1 [id number] 1957 Self-pay [id number] 1957 Unknown [id number] 2. [id number] 1950 Unknown [id number] 2.16.84 [id number] 1950 Unknown [id number] 2.16.84 [id number] 1950 Unknown [id number] 2.16.84 [id number] 1950 Unknown [id number] 2.16.84 [id number] 1950 Unknown [id number] 2.16.84 [id number] 1950 Unknown [id number] 2.16.84 [id number] 1950 Unknown [id number] 2.16.84 [id number] 1950 Unknown [id number] 2.16.84 [id number] Unknown [id number] 2.16.84 [id number] Social History Date Type Detail Facility Sex Assigned At [facility] Other Clinical Notes 04-28-2021 to 03-23-2023 Note Date & Type Note Facility 03-23-2023 Evaluation note Encounter Date Diagnosis Assessment Notes Mar, Medicare annual wellness visit, subsequent (ICD-10 - Z00.00) Personalized health advice was given to the beneficiary including a written plan for screenings discussed and provided. Advanced care planning reviewed and/or information given as requested. Additional counseling was provided here today in regards to, [ ]. The above visit was performed by [ ], under direct supervision of [ ]. Document reviewed and amended by provider signed below. Mar, ASHD (arteriosclerotic heart disease) (ICD-10 - I25.10) Coronary atherosclerosis noted on CT chest 2022 This patient is stable without activity related CP, dyspnea or lightheadedness. They are instructed to continue exercise and AHA diet plan. Continue secondary prevention measures. Mar, Paroxysmal atrial fibrillation (ICD-10 - I48.0) This patient is in NSR or rate controlled. This patient is not anticoagulated to prevent thromboembolic events. They are maintaining regular scheduled appts with their lombardi developer. - previous lombardi developer d/c AC after years of not having episodes - continued Rhythmol Mar, Mucopurulent chronic bronchitis (ICD-10 - J41.1) Mucolytics as needed. Continue LABA/ICS as directed She denies coughing or increased sputum She is UTD w/ vaccinations Mar, Chronic venous insufficiency (ICD-10 - I87.2) Avoid salt and elevate lower extremities, support stockings, inspect legs and feet daily for blisters and ulcerations. Mar, Bronchiectasis without complication (ICD-10 - J47.9) Monitor for now. SYmptoms tolerable Mucolytics, hydrate and continue LABA/ICS GIANNA as needed Mar, Lumbar spondylosis (ICD-10 - M47.816) The patient is instructed to avoid bending, twisting or lifting. They are to use intermittent heat and ice as needed. They may schedule a massage or gentle manipulation. They may safely use Tylenol as needed. PT if symptoms worsen but encouraged to continue HEP 20 Dec, 2023 Hypercholesteremi a (ICD-10 - E78.00) Instructed on diet and exercise with continued statin therapy.Discusse d the beneficial effects of lowering cholesterol in reducing the risk for cerebrovascular and cardiovascular disease. Mar, Gastroesophageal reflux disease with esophagitis without hemorrhage (ICD-10 - K21.00) Avoid lying flat after eating. Avoid eating 2 hours prior to bedtime. Smaller, frequent meals may be better tolerated.Weight loss if overweight.PPI with any heartburn.Monito r for dysphagia. Mar, Menopause (ICD-10 - Z78.0) Ca and VIt D supplements Weight bearing exercises DEXA qoy Mar, Screening mammogram for breast cancer (ICD-10 - Z12.31) Instructed patient on monthly SBE and yearly mammograms. [facility] Other 12-15-2023 Evaluation note* Encounter Date Diagnosis Assessment Notes Treatment Notes Treatment Clinical Notes Mar, Screening mammogram, encounter for (ICD-10 - Z12.31) [facility] Other 11-03-2023 NoteUT Electrophysiology Consult Note Reason [...] Atrial fibrillation, hyperlipidemia was recently seen in [place] ED for irregular heartbeats. she has been [...] mg by mouth in the morning. Taking MON,Tue atorvastatin (Lipitor) 40 mg tablet Take 40 [...] Rate And Rhythm: regular (more content not included)...[facility]10-13-2023 Evaluation note* Encounter Date Diagnosis Assessment Notes Treatment Notes Treatment Clinical Notes Jan, Mucopurulent chronic bronchitis (ICD-10 - J41.1) Push fluids, mucolytics as needed. Trial of Doxycycline qd Jan, Chronic obstructive pulmonary disease with (acute) exacerbation (ICD-10 - J44.1) Continue LABA/ICS - discussed adding GIANNA but not necessary at this time [facility] Other [id number] Evaluation note* Encounter Date Diagnosis Assessment Notes Treatment Notes Treatment Clinical Notes Jan, Acute bronchitis due to other specified organisms (ICD-10 - J20.8) [facility] Other 10-03-2023 Evaluation note* Encounter Date Diagnosis Assessment Notes Treatment Notes Treatment Clinical Notes Jan, Acute bronchitis due to other specified organisms (ICD-10 - J20.8) [facility] Other 09-26-2023 NoteUT Electrophysiology Consult Note Reason for visit: Palpitations HPI: Holley Vu is a 72 y.o. year old with past medical history of isolated Kramer's palsy, Atrial fibrillation, hyperlipidemia was recently seen in [place] ED for irregular heartbeats. she has been [...] triggered by hypokalemia sin (more content not included)...[facility]09-06-2023 Evaluation note* Encounter Date Diagnosis Assessment Notes [...] daily stretching exercises Continue Tylenol as needed [facility] Other 05-11-2023 Evaluation note* Encounter Date Diagnosis Assessment Notes Treatment Notes Treatment Clinical Notes August, VALDES (dyspnea on exertion) (ICD-10 - R06.09) August, Bronchiectasis without complication (ICD-10 - J47.9) August, Subacute cough (ICD-10 - R05.2) [facility] Other 05-11-2023 Evaluation note* Encounter Date Diagnosis Assessment Notes Treatment Notes Treatment Clinical Notes August, Persistent cough (ICD-10 - R05.3) August, Bronchiectasis without complication (ICD-10 - J47.9) August, Dyspnea on exertion (ICD-10 - R06.09) [facility] Other 04-03-2023 Evaluation note* Encounter Date Diagnosis Assessment Notes Treatment Notes Treatment Clinical Notes Jul, Hypokalemia (ICD-10 - E87.6) [facility] Other 01-25-2022 Evaluation note* Encounter Date Diagnosis [...] Patient care instructions given in writting by [facility] document. [facility] Other Evaluation noteNo InformationNort Genmab Other History general Narrative - Reported* Type [...] History [facility]LT Hospitalization History SEE SURGICAL HX [facility] Other Summary Purpose Family History No Family History Records FoundNo Family History Records Found Advance Directives No Advanced Directives Records FoundNo Advanced Directives Records Found Additional Source Comments REASON FOR VISIT (unrecogniz ed section and content) #4 RED BAM 4, EXPOSURE, COVI D Nurse Visit- Self PayNo Informationstanding lab orderrefillRe-Send OrdersNo InformationNo InformationRefillrefillupdate on inhaler and legResultsRefillNo InformationNo InformationWants in TomorrowCheck Lungsflu shotmamm orderWellnessMammNo Information INFORMATION SOURCE (unrecogn ized section and content) DATE CREATED AUTHOR 08/18/2022 [facility] DATE CREATED AUTHOR AUTHOR'S DAVID KEVIN 02/14/2023 [facility] FOR RECORDS PERTAINING TO PATIENTS WHO [...] BE BASED ON THE PRIMARY CLINICAL RECORDS. [facility]. provides no warranty or guarantee of the accuracy or completeness of information in this document.
== END 2023-04-05 08:05 | disposition home or self-care (01) ==
LOC: RAD 08:05
PROVIDERS: PCP Internal Medicine; Visit Provider Internal Medicine
DX: M85.80 Other specified disorders of bone density and structure, unspecified site (principal); Z78.0 Asymptomatic menopausal state
CPT/HCPCS: 77080

== ENCOUNTER 2023-07-15 16:08 | Outpatient (OUT) | payer MEDICARE, OTHER, SELFPAY ==
--- OUTSIDE RECORDS SUMMARY | 2023-07-15 16:22 | XMS_ITS | CCD ---
Author Organization [facility] Care Team Providers Care Mica Plate Layer Name Role Phone YsabelGogo Babs Paulino Swain Unavailable WILIAM, DR ALBRECHT Primary Care Unavailable [...] ALBRECHT Consulting Unavailable Zieber, Yadiel Consulting Unavailable ARTEMIO GOMEZ Attending Unavailable MARY DAY Attending Unavailable MARY DAY Attending Unavailable Allergies Allergy Classification Reported Allergen(s) Allergy Type Date of Onset Reaction(s) Facility (20 sources) Meperidine; Translations: [MEPERIDINE] Drug Allergy 3 Unknown [facility] Repository (1 source) Meperidine Drug Allergy [facility] Repository (2 sources) patient allergy list reviewed by nurse or physicia Propensity to adverse reactions 12-20-201 8 Comment:Done Cass Art Other (2 sources) Allergies Reconciled Propensity to adverse reactions Unknown Cass Art Other Medications Current Medications Medication Drug Class(es) Dates Sig (Normalized) Sig (Original) AeroChamber Mini Chamber - (6 sources) Start: 03-23-2023 AeroChamber Mini Chamber - Use w/ MDI inhaled bid for 365 days Mar, Active atorvastatin 40 mg oral tablet (20 sources) HMG-CoA Reductase Inhibitor Start: 07-05-2022 take 1 tablet by mouth in the evening Atorvastatin Calcium 40 MG 1 tablet Orally in the evening Jul, Active calcium carbonate 1500 mg / cholecalciferol 0.01 mg oral tablet (13 sources) Vitamin D Start: 12-22-2022 take 1 [...] / salmeterol 0.021 mg/actuat metered dose inhaler (20 sources) Corticosteroid, beta2-Adrenergic Agonist Start: 03-23-2023 take 2 puff(s) by inhalation twice daily Advair HFA 115-21 MCG/ACT 2 puffs Inhalation Twice a day for 30 days Mar, Active Start: 08-25-2022 take 1 puff(s) by mo uth twice daily Fluticasone-Salmeterol 250-50 MCG/ACT 1 puff, rinse mouth after use Inhalation Twice a day August, Active metoprolol tartrate 50 mg oral tablet (16 sources) beta-Adrenergic Shania Start: 11-16-2022 take 1 tablet by mouth every twelve hours Metoprolol Tartrate 50 MG 1 tablet with food Orally Twice a day Nov, Active pantoprazole 20 mg delayed release oral tablet (17 sources) Proton Pump Inhibitor Start: 11-05-2022 take 1 tablet by mouth every twenty-four hours Pantoprazole Sodium 20 MG 1 tablet Orally Once a day Nov, Active microencapsulated potassium chloride 20 meq extended release oral tablet (20 sources) Start: 07-05-2022 take 1 tablet by mouth three times daily at mealtime Klor-Con M20 20 MEQ 1 tablet with food Orally three times daily Jul, Active propafenone hydrochloride 150 mg oral tablet (17 sources) Antiarrhythmic Start: 10-08-2022 take 1 tablet by mouth three times daily Propafenone HCl 150 MG 1 tablet Orally three times daily Oct, Active Completed/Discontinued Medications Medication Drug Class(es) Dates Sig (Normalized) Sig (Original) amoxicillin 875 mg oral tablet (11 sources) Penicillin-class Antibacterial Start: 01-05-2023 take 1 tablet by mouth every twelve hours Amoxicillin 875 MG 1 tablet Orally Twice a day for 7 days Jan, Not-Taking/PRN doxycycline hyclate 100 mg oral capsule (12 sources) Tetracycline-class Drug Start: 01-04-2023 take 1 [...] Atrial fibrillation; Translations: [Paroxysmal atrial fibrillation] Onset: Chronic Chronic obstructive pulmonary disease and bronchiectasis (20 sources) Bronchiectasis; Translations: [Bronchiectasis, uncomplicated] Chronic Chronic obstructive pulmonary disease and bronchiectasis (2 sources) Bronchitis; Translations: [Bronchitis, not specified as acute or chronic] Episodic Coronary atherosclerosis and other heart disease (17 sources) Coronary arteriosclerosis; Translations: [Atherosclerotic heart disease of [place] coronary artery without angina pectoris] Chronic Disorders of lipid metabolism (20 sources) Pure hypercholesterolemia; Translations: [Familial hypercholesterolemia] Onset: Chronic Esophageal disorders (12 sources) Gastro-esophageal reflux disease with esophagitis; Translations: [Gastroesophageal reflux disease with esophagitis without hemorrhage] Chronic Essential hypertension (20 sources) Essential hypertension; Translations: [Essential (primary) hypertension] Chronic Fluid and electrolyte disorders (20 sources) Hypokalemia; Translations: [Hypokalemia] Onset: 3 Episodic Immunizations and screening for infectious disease (3 sources) Encounter for screening for other viral diseases; Translations: [Vaccination given] Onset: 2 Resolved: 2 Episodic Menopausal disorders (20 sources) Decreased estrogen level; 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 Other aftercare (2 sources) Long-term current use of drug therapy; Translations: [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] Episodic Other circulatory disease (2 sources) Elevated blood-pressure reading without diagnosis of hypertension; Translations: [Elevated blood-pressure reading, without diagnosis of hypertension] Episodic Other connective tissue disease (20 sources) Disorder of soft tissue; Translations: [Other specified soft tissue disorders] Episodic Other diseases of veins and lymphatics (15 sources) Peripheral venous insufficiency; Translations: [Venous insufficiency (chronic) (peripheral)] Episodic Other diseases of veins and lymphatics (2 sources) Venous insufficiency (chronic) (peripheral) Episodic Other injuries and conditions due to external causes (2 sources) History of fall; Translations: [History of falling] Episodic Other lower respiratory disease (20 sources) Persistent cough; Translations: [Persistent cough] Episodic Other lower respiratory disease (3 sources) Other forms of dyspnea; Translations: [OTHER FORMS OF DYSPNEA] Onset: 3 Episodic Other lower respiratory disease (6 sources) Chronic cough; Translations: [Chronic cough] Onset: 2 Episodic Phlebitis; thrombophlebitis and thromboembolism (4 sources) [...] [PAIN IN LEFT ANKLE] Onset: 04-27-2022 Episodic Other screening for suspected conditions (not mental disorders or infectious disease) (12 sources) Encounter for screening mammogram for malignant neoplasm of breast; Translations: [Blood chemistry abnormal] Onset: 01-19-2017 Resolved: 01-11-2020 Episodic Residual codes; unclassified (2 sources) Other specified health status; Translations: [Health status] Resolved: 02-18-2020 Episodic Unclassified (1 source) Subacute cough R05.2 Unclassified (1 source) Persistent cough R05.3 Unclassified (1 source) LOW BACK PAIN, UNSPECIFIED; Translations: [LOW BACK PAIN, UNSPECIFIED] Onset: 08-12-2022 Results Test Name Value Interpretation Reference Range Facility Office Visiton 05-17-2023 Follow-up visit [id number] Shelia Vu 1950 F Date Provider Department Center 05/17/2023 MARY ROB [facility] No family history on file Level of Service:07803 HI OFFICE/OUTPATIENT ESTABLISHED MOD MDM 30 MIN Normal [facility] Office Visiton 02-04-2023 Follow-up visit [id number] Shelia Vu 1950 F Date Provider Department Center 02/04/2023 ArleyBARBMARY [facility] No family history on file Level of Service:89504 HI OFFICE/OUTPATIENT ESTABLISHED MOD MDM 30-39 MIN Reason for Visit and Comments: Follow-up [872728] Normal [facility] Office Visiton 12-28-2022 Follow-up visit [id number] Shelia Vu odell 1950 F Date Provider Department Center 12/28/2022 ARTEMIO BARTLETT [facility] No family history on file Level of Service:02030 HI OFFICE/OUTPATIENT NEW HIGH MDM 60-74 MINUTES Normal [facility] CBC AUTO DIFFon 08-17-2022 BASO # 0.0 103/ul Normal 0.0-0.1 [facility] Comment on above: Performed By: #### C RP #### [facility] [address] [place] [address] Dr. Lydia Ward Basophils/100 WBC (Bld) 0.7 % Normal 0.2-2.0 [facility] Comment on above: Performed By: #### C RP #### [facility] [address] [address] [address] Lydia Ward EO # 0.3 103/ul Normal 0.0-0.7 [facility] Comment on above: Performed By: #### C RP #### [facility] [address] [place] [address] Dr. Lydia Ward Eosinophils/100 WBC (Bld) 5.5 % Normal 0.9-7.0 [facility] Comment on above: Performed By: #### C RP #### [facility] [address] [place] [address] Dr. Lydia Ward Erythrocyte distribution width (RBC) [Ratio] 12.7 % Normal 11.0-15.0 [facility] Comment on above: Performed By: #### C RP #### [facility] [address] [place] [address] Dr. Lydia Ward Hematocrit (Bld) [Volume fraction] 45.1 % Normal 36.0-48.0 [facility] Comment on above: Performed By: #### C RP #### [facility] [address] [place] [address] Dr. Lydia Ward Hemoglobin (Bld) [Mass/Vol] 14.7 g/dL Normal 12.0-16.0 [facility] Comment on above: Performed By: #### C RP #### [facility] [address] [place] [address] Dr. Lydia Ward IG # 0.01 10e3/ul Normal 0.00-0.03 [facility] Comment on above: Performed By: #### C RP #### [facility] [address] [place] [address] Dr. Lydia Ward IG % 0.2 % Normal 0.0-0.5 [facility] Comment on above: Performed By: #### C RP #### [facility] [address] [place] [address] Dr. Lydia Ward LYMPH # 2.0 103/ul Normal 1.2-3.8 [facility] Comment on above: Performed By: #### C RP #### [facility] [address] [place] [address] Dr. Lydia Ward Lymphocytes/100 WBC (Bld) 33.9 % Normal 20.5-60.0 [facility] Comment on above: Performed By: #### C RP #### [facility] [address] [place] [address] Dr. Lydia Ward MANUAL DIFF REQ NO Normal [facility] Comment on above: Performed By: #### C RP #### [facility] [address] [place] [address] Dr. Lydia Ward MCH (RBC) [Entitic mass] 28.3 pg Normal 26.7-34.0 [facility] Comment on above: Performed By: #### C RP #### [facility] [address] [place] [address] Dr. Lydia Ward MCHC (RBC) [Mass/Vol] 32.6 g/dL Normal 29.9-35.2 [facility] Comment on above: Performed By: #### C RP #### [facility] [address] [place] [address] Dr. Lydia Ward MCV (RBC) [Entitic vol] 86.9 fL Normal 81.0-99.0 [facility] Comment on above: Performed By: #### C RP #### [facility] [address] [place] [address] Dr. Lydia Ward MONO # 0.5 103/ul Normal 0.3-0.8 [facility] Comment on above: Performed By: #### C RP #### [facility] [address] [place] [address] Dr. Lydia Ward Monocytes/100 WBC (Bld) 9.0 % Normal 1.7-12.0 [facility] Comment on above: Performed By: #### C RP #### [facility] [address] [place] [address] Dr. Lydia Ward NEUT # 3.1 103/ul Normal 1.4-6.5 [facility] Comment on above: Performed By: #### C RP #### [facility] [address] [place] [address] Dr. Lydia Ward Neutrophils/100 WBC (Bld) 50.7 % Normal 43.0-75.0 [facility] Comment on above: Performed By: #### C RP #### [facility] [address] [place] [address] Dr. Lydia Ward Platelet mean volume (Bld) [Entitic vol] 9.1 fL Critically low 9.5-13.5 [facility] Comment on above: Performed By: #### C RP #### [facility] [address] [place] [address] Dr. Lydia Ward PLT 206 103/ul Normal 150-450 [facility] Comment on above: Performed By: #### C RP #### [facility] [address] [place] [address] Dr. Lydia Ward RBC 5.19 106/ul Normal 4.20-5.40 [facility] Comment on above: Performed By: #### C RP #### [facility] [address] [place] [address] Dr. Lydia Ward WBC 6.0 103/ul Normal 4.0-11.0 [facility] Comment on above: Performed By: #### C RP #### [facility] [address] [address] [address] Lydia Ward CRPon 08-17-2022 CRP [Mass/Vol] mg/L Normal <=1.0 [facility] Comment on above: Performed By: #### C RP #### [facility] [address] [address] [address] CHEST HI RESOLUTIONon [...] by: YADIEL CHAPMAN Date: 2022-08-17 09:51 Normal [facility] POTASSIUMon 08-10-2022 Potassium [Moles/Vol] 4.5 mmol/L Normal 3.5-5.1 [facility] Comment on above: Performed By: #### K #### [facility] [address] [address] [address] Lydia Ward XR CHEST 2 Von [...] BEULAH RIVAS Date: 2022-08-10 18:46 Normal [facility] XR ANKLE LT 2Von 04-27-2022 XR [...] YOLIS SANCHEZ Date: 2022-04-27 19:16 Normal [facility] XR FOOT LT 2Von 04-27-2022 XR [...] YOLIS SANCHEZ Date: 2022-04-27 19:19 Normal [facility] CBC AUTO DIFFon 03-23-2022 BASO # 0.1 103/ul Normal 0.0-0.1 [facility] Comment on above: Performed By: #### D ATCBC #### [facility] [address] [place] [address] Dr. Lydia Ward Basophils/100 WBC (Bld) 0.5 % Normal 0.2-2.0 [facility] Comment on above: Performed By: #### D ATCBC #### [facility] [address] [place] [address] Dr. Lydia Ward EO # 0.1 103/ul Normal 0.0-0.7 [facility] Comment on above: Performed By: #### D ATCBC #### [facility] [address] [place] [address] Dr. Lydia Ward Eosinophils/100 WBC (Bld) 0.8 % Critically low 0.9-7.0 [facility] Comment on above: Performed By: #### D ATCBC #### [facility] [address] [place] [address] Dr. Lydia Ward Erythrocyte distribution width (RBC) [Ratio] 12.9 % Normal 11.0-15.0 [facility] Comment on above: Performed By: #### D ATCBC #### [facility] [address] [place] [address] Dr. Lydia Ward Hematocrit (Bld) [Volume fraction] 43.5 % Normal 36.0-48.0 [facility] Comment on above: Performed By: #### D ATCBC #### [facility] [address] [place] [address] Dr. Lydia Ward Hemoglobin (Bld) [Mass/Vol] 14.3 g/dL Normal 12.0-16.0 [facility] Comment on above: Performed By: #### D ATCBC #### [facility] [address] [place] [address] Dr. Lydia Ward IG # 0.05 10e3/ul Critically high 0.00-0.03 [facility] Comment on above: Performed By: #### D ATCBC #### [facility] [address] [place] [address] Dr. Lydia Ward IG % 0.5 % Normal 0.0-0.5 [facility] Comment on above: Performed By: #### D ATCBC #### [facility] [address] [place] [address] Dr. Lydia Ward LYMPH # 2.2 103/ul Normal 1.2-3.8 [facility] Comment on above: Performed By: #### D ATCBC #### [facility] [address] [place] [address] Dr. Lydia Ward Lymphocytes/100 WBC (Bld) 19.7 % Critically low 20.5-60.0 [facility] Comment on above: Performed By: #### D ATCBC #### [facility] [address] [place] [address] Dr. Lydia Ward MCH (RBC) [Entitic mass] 29.2 pg Normal 26.7-34.0 [facility] Comment on above: Performed By: #### D ATCBC #### [facility] [address] [place] [address] Dr. Lydia Ward MCHC (RBC) [Mass/Vol] 32.9 g/dL Normal 29.9-35.2 [facility] Comment on above: Performed By: #### D ATCBC #### [facility] [address] [place] [address] Dr. Lydia Ward MCV (RBC) [Entitic vol] 88.8 fL Normal 81.0-99.0 [facility] Comment on above: Performed By: #### D ATCBC #### [facility] [address] [place] [address] Dr. Lydia Ward MONO # 0.9 103/ul Critically high 0.3-0.8 [facility] Comment on above: Performed By: #### D ATCBC #### [facility] [address] [place] [address] Dr. Lydia Ward Monocytes/100 WBC (Bld) 8.2 % Normal 1.7-12.0 [facility] Comment on above: Performed By: #### D ATCBC #### [facility] [address] [address] [address] Lydia Ward NEUT # 7.8 103/ul Critically high 1.4-6.5 [facility] Comment on above: Performed By: #### D ATCBC #### [facility] [address] [place] [address] Dr. Lydia Ward Neutrophils/100 WBC (Bld) 70.3 % Normal 43.0-75.0 [facility] Comment on above: Performed By: #### D ATCBC #### [facility] [address] [place] [address] Dr. Lydia Ward Platelet mean volume (Bld) [Entitic vol] 8.8 fL Critically low 9.5-13.5 [facility] Comment on above: Performed By: #### D ATCBC #### [facility] [address] [place] [address] Dr. Lydia Ward PLT 276 103/ul Normal 150-450 [facility] Comment on above: Performed By: #### D ATCBC #### [facility] [address] [place] [address] Dr. Lydia Ward RBC 4.90 106/ul Normal 4.20-5.40 [facility] Comment on above: Performed By: #### D ATCBC #### [facility] [address] [place] [address] Dr. Lydia Ward WBC 11.1 103/ul Critically high 4.0-11.0 [facility] Comment on above: Performed By: #### D ATCBC #### [facility] [address] [place] [address] Dr. Lydia Ward RUTH - VITAMIN Don 03-23-2022 VIT D 25-OH 31.3 ng/mL Normal [facility] Comment on above: Performed By: #### C RP #### [facility] [address] [place] [address] Dr. Lydia Ward VIT D RANGES SEE BELOW Normal [facility] Comment on above: Result Comment: <20 ng/mL Vit D deficient 20 - <30 ng/mL Vit D insufficient 30 - 100 ng/mL Vit D sufficient >100 ng/mL Potential Toxicity Performed By: #### C RP #### [facility] [address] [place] [address] Dr. Lydia Ward RUTH- BMP WITH LIPIDon 2021 Anion gap [Moles/Vol] 7.6 mmol/L Normal [facility] Comment on above: Performed By: #### C RP #### [facility] [address] [place] [address] Dr. Lydia Ward Calcium [Mass/Vol] 9.4 mg/dL Normal 8.5-10.1 [facility] Comment on above: Performed By: #### C RP #### [facility] [address] [place] [address] Dr. Lydia Ward Chloride [Moles/Vol] 100 mmol/L Normal 98-107 [facility] Comment on above: Performed By: #### C RP #### [facility] [address] [place] [address] Dr. Lydia Ward Cholesterol [Mass/Vol] 126 mg/dL Normal <=200 [facility] Comment on above: Performed By: #### C RP #### [facility] [address] [place] [address] Dr. Lydia Ward Cholesterol in HDL [Mass/Vol] 53 mg/dL Normal 40-60 [facility] Comment on above: Performed By: #### C RP #### [facility] [address] [place] [address] Dr. Lydia Ward Cholesterol in LDL [Mass/Vol] 53.6 mg/dL Normal [facility] Comment on above: Performed By: #### C RP #### [facility] [address] [place] [address] Dr. Lydia Ward CO2 [Moles/Vol] 34.0 mmol/L Critically high 21.0-32.0 [facility] Comment on above: Performed By: #### C RP #### [facility] [address] [place] [address] Dr. Lydia Ward Creatinine [Mass/Vol] 0.76 mg/dL Normal 0.55-1.02 [facility] Comment on above: Performed By: #### C RP #### [facility] [address] [address] [address] Lydia Ward EGFR-AF ENGLISH >60 Normal >=60 [facility] Comment on above: Performed By: #### C RP #### [facility] [address] [address] [address] Lydia Ward EGFR-NON AF ENGLISH >60 Normal >=60 [facility] Comment on above: Performed By: #### C RP #### [facility] [address] [address] [address] Lydia Ward Glucose [Mass/Vol] 83 mg/dL Normal 74-106 [facility] Comment on above: Performed By: #### C RP #### [facility] [address] [address] [address] Lydia Ward HDL NORMAL > or = 60 mg/dl - LO W CARDIOVASCULAR RISK <40 mg/dl - HIGH CARDIOVASCULAR RISK Normal [facility] Comment on above: Performed By: #### C RP #### [facility] [address] [place] [address] Dr. Lydia Ward LDL CALC NORMAL SEE BELOW Normal [facility] Comment on above: Result Comment: <100 mg/dl OPTIMAL 100 - 129 mg/dl NEAR OR ABOVE OPTIMAL 130 - 159 mg/dl BORDERLINE HIGH 160 - 189 mg/dl HIGH >190 mg/dl VERY HIGH Performed By: #### C RP #### [facility] [address] [address] [address] Lydia Ward Potassium [Moles/Vol] 4.6 mmol/L Normal 3.5-5.1 [facility] Comment on above: Performed By: #### C RP #### [facility] [address] [address] [address] Lydia Ward Sodium [Moles/Vol] 137 mmol/L Normal 136-145 [facility] Comment on above: Performed By: #### C RP #### [facility] [address] [address] [address] Lydia Ward Triglyceride [Mass/Vol] 97 mg/dL Normal <=150 [facility] Comment on above: Performed By: #### C RP #### [facility] [address] [place], [place] [address] Dr. Lydia Ward Urea nitrogen [Mass/Vol] 17.0 mg/dL Normal 7.0-18.0 [facility] Comment on above: Performed By: #### C RP #### [facility] [address] [address] [address] Lydia Ward Urea nitrogen/Creatini ne [Mass ratio] 22.4 mg/mg Normal [facility] Comment on above: Performed By: #### C RP #### [facility] [address] [address] [address] Lydia Ward VLDL CALC 19.4 mg/dL Normal [facility] Comment on above: Performed By: #### C RP #### [facility] [address] [address] [address] Lydia Ward XR CHEST 2 Von [...] acute cardiopulmonary disease. Electronically authenticated by: FIGUEROA MENEDZ Date: 2022-03-23 13:51 Normal [facility] MAMM SCREEN 3D EUFEMIA CADon 03-22-2022 MG MAMM SCREEN 3D EUFEMIA CAD Patient: HOLLEY VU Exam Date: 03/22/2022 : 1950 Gender:F Ordering : DR PAULINO SWAIN D.O. Admission #: [id number] Family : Order #: [id number] CLICK HERE TO VIEW EXAM RADIOLOGY REPORT [...] Treatments None Family Cancers None LOCATION: [facility] BREAST COMPOSITION: Extremely dense, which lowers [...] Chapman M.D. on 03/23/2022 at 12:22 Normal [facility] POTASSIUMon 11-17-2021 Potassium [Moles/Vol] 4.5 mmol/L Normal 3.5-5.1 [facility] Comment on above: Performed By: #### K #### [facility] [address] [place] [address] Dr. Lydia SHEIKH Quick Testingon 2021 Result Negative [facility] Other Vital Signs Date Time Vital Sign Value Performing Clinician Facility 03-23-2023 13:30-0500 Body height 160.02 cm [facility] Other [facility] Other 03-23-2023 13:30-0500 Body mass index (BMI) [Ratio] 24.83 kg/m2 [facility] 03-23-2023 13:30-0500 Body weight 63.59 kg [facility] Other [facility] Other 03-23-2023 13:30-0500 Diastolic blood pressure 70 mm[Hg] [facility] Other [facility] Other 03-23-2023 13:30-0500 Respiratory rate 12 /min [facility] Other [facility] Other 03-23-2023 13:30-0500 Systolic blood pressure 146 mm[Hg] Paulino Ball Other [facility] Other 01-14-2023 11:15-0400 Body height 160.02 cm Paulino Ball Other [facility] Other 01-14-2023 11:15-0400 Body mass index (BMI) [Ratio] 24.23 kg/m2 Paulino Ball Other [facility] Other 01-14-2023 11:15-0400 Body weight 62.05 kg Paulino Ball Other [facility] Other 01-14-2023 11:15-0400 Diastolic blood pressure 69 mm[Hg] Paulino Ball Other [facility] Other 01-14-2023 11:15-0400 Respiratory rate 12 /min Paulino Ball Other [facility] Other 01-14-2023 11:15-0400 Systolic blood pressure 164 mm[Hg] Paulino Ball Other [facility] Other 12-08-2022 11:30-0400 Body height 160.02 cm Paulino Ball Other [facility] Other 12-08-2022 11:30-0400 Body mass index (BMI) [Ratio] 25.22 kg/m2 [facility] Ball Other [facility] Other 12-08-2022 11:30-0400 Body weight 64.59 kg Paulino Ball Other [facility] Other 12-08-2022 11:30-0400 Diastolic blood pressure 81 mm[Hg] Paulino Ball Other [facility] Other 09-06-2023 11:30-0400 Respiratory rate 12 /min Paulino Swain Other [facility] Other 12-08-2022 11:30-0400 Systolic blood pressure 161 mm[Hg] Paulino Swain Other [facility] Other Encounters Encounter Date Encounter Type Care Provider Facility Start: 05-17-2023 End: 05-17-2023 ambulatory [facility] Start: 05-02-2023 End: 05-02-2023 ambulatory Paulino Swain Other [facility] Other Start: 05-02-2023 Patient encounter procedure Paulino Swain [facility] Start: 05-02-2023 Telephone encounter Paulino Swain [facility] Start: 04-25-2023 End: 04-25-2023 ambulatory Paulino Swain Other [facility] Other Start: 04-25-2023 Telephone encounter Paulino Swain [facility] Start: 04-05-2023 End: 04-05-2023 ambulatory Paulino Swain Other [facility] Other Start: 04-05-2023 Telephone encounter Paulino Swain [facility] Start: 03-24-2023 End: 03-24-2023 ambulatory Paulino Swain Other [facility] Other Start: 03-24-2023 Telephone encounter Paulino Swain [facility] Start: 03-23-2023 End: 03-23-2023 ambulatory Paulino Swain Other [facility] Other Start: 03-23-2023 Patient encounter procedure Paulino Swain [facility] Start: 03-23-2023 Telephone encounter Paulino Ball [facility] Start: 03-18-2023 End: 03-18-2023 ambulatory Paulino Swain Other [facility] Other Start: 03-18-2023 Telephone encounter Paulino Ball [facility] Start: 02-23-2023 End: 02-23-2023 ambulatory Paulino Swain Other [facility] Other Start: 02-23-2023 Nursing evaluation o f patient and report Paulino Swain [facility] Start: 02-04-2023 End: 02-04-2023 ambulatory [facility] Start: 01-14-2023 End: 01-14-2023 ambulatory Paulino Swain Other [facility] Other Start: 01-14-2023 Office outpatient vi sit 15 minutes Paulino Ball [facility] Start: 01-13-2023 End: 01-13-2023 ambulatory Paulino Swain Other [facility] Other Start: 01-13-2023 Telephone encounter Paulino Swain [facility] Start: 01-05-2023 End: 01-05-2023 ambulatory Paulino Swain Other [facility] Other Start: 01-05-2023 Telephone encounter Paulino Swain [facility] Start: 01-04-2023 End: 01-04-2023 ambulatory Paulino Swain Other [facility] Other Start: 01-04-2023 Telephone encounter Paulino Swain [facility] Start: 12-28-2022 End: 12-28-2022 ambulatory [facility] Start: 12-22-2022 End: 12-22-2022 ambulatory Paulino Swain Other [facility] Other Start: 12-22-2022 Telephone encounter Paulino Swain [facility] Start: 12-08-2022 End: 12-08-2022 ambulatory Paulino Ball Other [facility] Other Start: 12-08-2022 Office outpatient vi sit 15 minutes Paulino Ball [facility] Start: 12-08-2022 Telephone encounter Paulino Swain [facility] Start: 11-16-2022 End: 11-16-2022 ambulatory Paulino Swain Other [facility] Other Start: 11-16-2022 Telephone encounter Paulino Swain [facility] Start: 11-05-2022 End: 11-05-2022 ambulatory Paulino Swain Other [facility] Other Start: 11-05-2022 Telephone encounter Paulino Swain [facility] Start: 08-19-[address] PAULINO SWAIN Facili ty:[facility]1 Start: 08-17-2022 End: 08-18-[address] PAULINO SWAIN Facility:[facility] Start: 08-12-2022 End: 08-12-[address] PAULINO SWAIN [facility] Other Start: 08-12-2022 Telephone encounter Paulino Wiliam [facility] Start: 08-10-2022 End: 08-11-[address] PAULINO SWAIN Facility:[facility] Start: 07-06-2022 End: 07-06-2022 ambulatory Paulino Swain Other [facility] Other Start: 07-06-2022 Telephone encounter Paulino [facility]iliam [facility] Start: 07-05-2022 End: 07-05-2022 ambulatory Paulino Swain Other [facility] Other Start: 07-05-2022 Telephone encounter Paulino Wiliam [facility] Start: 04-27-2022 End: 04-28-[address] PAULINO SWAIN Facility:[facility] Start: 04-23-2022 End: 04-23-2022 ambulatory Paulino Swain Other [facility] Other Start: 04-23-2022 Telephone encounter Paulino Wiliam [facility] Start: 03-23-2022 End: 03-24-[address] PAULINO SWAIN Facility:[facility] Start: 03-22-2022 End: 03-23-[address] PAULINO SWAIN Facility:[facility] Start: 03-22-2022 Adult health examination Grey Swain Other [facility] Other Start: 03-22-2022 Gynecological examination normal Paulino Swain Other [facility] Other Start: 11-17-2021 End: 11-18-2021 ambulatory PAULINO SWAIN Facility:[facility] Start: 04-28-2021 End: 04-28-2021 ambulatory Gogo Grady Other [facility] Other Start: 04-28-2021 Office outpatient vi sit 5 minutes Gogo Grady [facility] Procedures Date Procedure Procedure Detail Performing Clinician Start: 10-20-2016 General examination of patient Paulino Swain Other Start: 10-20-2016 Screening mammography [facility] Other Depression screening Nafisa Swain Other Screening for malign ant neoplasm of breast Paulino Swain Other Screening for malign ant neoplasm of colon Paulino Swain Other Immunizations Immunization Date Immunization Notes Care Provider Brent allen 02-23-2023 influenza, high dose seasonal, preservative-free Paulino Swain Other [facility] Other 02-01-2022 influenza virus vaccine, split virus (incl. purified surface antigen) Paulino Swain Other [facility] Other 01-23-2021 influenza virus vaccine, split virus (incl. purified surface antigen) Paulino Swain Other [facility] Other 06-06-2020 COVID-19 Vaccine Pfi zer - Documentation Purposes Only Paulino Swain Other [facility] Other 05-16-2020 COVID-19 Vaccine Pfi zer - Documentation Purposes Only Paulino Swain Other [facility] Other 02-21-2020 pneumococcal polysaccharide vaccine, 23 valent Paulino Wiliam Other [facility] Other 01-09-2020 influenza virus vaccine, split virus (incl. purified surface antigen) Paulino Swain Other [facility] Other 02-15-2019 pneumococcal conjuga te vaccine, 13 valent Paulino Wiliam Other [facility] Other 01-30-2019 influenza virus vaccine, split virus (incl. purified surface antigen) Paulino Wiliam Other [facility] Other 01-24-2017 tetanus and diphther ia toxoids, adsorbed, preservative free, for adult use (5 Lf of tetanus toxoid and 2 Lf of diphtheria toxoid) Paulino Swain Other [facility] Other 02-03-2016 tetanus and diphther ia toxoids, adsorbed, preservative free, for adult use (5 Lf of tetanus toxoid and 2 Lf of diphtheria toxoid) Paulino Swain Other [facility] Other 01-28-2015 tetanus and diphther ia toxoids, adsorbed, preservative free, for adult use (5 Lf of tetanus toxoid and 2 Lf of diphtheria toxoid) Paulino Swain Other [facility] Other 02-22-2014 tetanus and diphther ia toxoids, adsorbed, preservative free, for adult use (5 Lf of tetanus toxoid and 2 Lf of diphtheria toxoid) Paulino Swain Other [facility] Other Payers Date Payer Category Payer Medicare [id number] 2.1 [id number] 1957 Self-pay [id number] 1957 Unknown [id number] 2. [id number] 1950 Unknown [id number] 2.16.84 [id number] 1950 Unknown [id number] 2.16.84 [id number] 1950 Unknown [id number] 2.16.84 [id number] 1950 Unknown [id number] 2.16.84 [id number] 1950 Unknown [id number] 2.16.84 [id number] 1950 Unknown [id number] 2.16.84 [id number] 1950 Unknown [id number] 2.16.84 [id number] 1950 Unknown [id number] 2.16.84 [id number] Unknown [id number] 2.16.84 [id number] Social History Date Type Detail Facility Sex Assigned At [facility] Other Clinical Notes 04-28-2021 to 05-17-2023 Note Date & Type Note Facility 05-17-2023 Note Patient here for 3 m o follow up event monitor. Had routine labs in Mar 2023. She denies chest pain, SOB, palpitations, and lightheadedness/syncope. Doing very well. Says BP at home is always normal. She does keep track. Review of Systems Cardiovascular: Positive for leg swelling (resolves by morning). All other systems reviewed and are negative. [facility] 05-17-2023 Note [facility] Consult Note Reason for visit: Palpitations, afib 05/17/23: she is here for follow-up Stress test 01/20/2023 negative for ischemia Echo 01/19/2023 shows normal LVSF, EF 55%, moderate mitral annular calcification but no significant mitral valve stenosis, mild to moderate mitral regurg, mild to moderate biatrial dilatation, normal right-sided pressures Event monitor 03/2023 shows SR 100% of the time. VE <1%, SVE<1% 12/28/22 HPI: Holley Vu is a 72 y.o. year old with past medical history of isolated Kramer's palsy, Atrial fibrillation, hyperlipidemia was recently seen in [place] ED for irregular heartbeats. she has been [...] on file Housing Stability: Not on file Utilities: Not on file Allergies: Allergies Allergen Reactions Demerol [Meperidine] Weight: 64kg Visit Vitals BP 154/90 (BP Location: Left arm, Patient Position: Sitting) Pulse 72 Ht 1.549 m (5' 1 ) Wt 64 kg (141 lb) SpO2 97% BMI 26.64 kg/m??? Smoking Status Never BSA 1.66 m??? Meds: Current Outpatient Medications on File Prior to Visit Medication Sig Dispense Refill albuterol 90 mcg/actuation inhaler Inhale 2 puffs every 6 (six) hours if needed for wheezing. atorvastatin (Lipitor) 40 mg tablet Take 40 mg by mouth in the morning. calcium citrate-vitamin D3 (Citracal+D) 315 mg-5 mcg (200 unit) tablet Take 1 tablet by mouth in the morning. metoprolol tartrate (Lopressor) 50 mg tablet Take 50 mg by mouth in the morning and at bedtime. pantoprazole (ProtoNix) 20 mg EC tablet Take 20 mg by mouth before breakfast. Do not crush, chew, or split. potassium chloride CR (Klor-Con M20) 20 mEq ER tablet Take 20 mEq by mouth in the morning, at noon, and at bedtime. Do not crush or chew. propafenone (Rythmol) 150 mg tablet Take 150 mg by mouth every 8 (eight) hours. [DISCONTINUED] aspirin 81 mg EC tablet Take 81 mg by mouth in the morning. Taking TUE,Tue [DISCONTINUED] fluticasone propion-salmeteroL (Advair Diskus) 250-50 mcg/dose diskus inhaler Inhale 1 puff in the morning and at bedtime. Rinse mouth with water after use to reduce aftertaste and incidence of candidiasis. Do not swallow. No current facility-administered medications on file prior [...] signs of emboli Peripheral Pulses Radial Pulse: (more content not included)... [facility] 05-02-2023 Evaluation note Encounter Date Diagnosis Assessment Notes Apr, Medicare annual wellness visit, subsequent (ICD-10 - Z00.00) [facility] Other 12-20-2023 Evaluation note* Encounter Date Diagnosis Assessment Notes Treatment Notes Treatment Clinical Notes Mar, Medicare annual wellness visit, subsequent [...] amended by provider signed below. 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 Continue LABA/ICS as directed She denies coughing or increased sputum She is UTD w/ vaccinations Mar, Chronic venous insufficiency (ICD-10 - I87.2) Avoid salt and elevate lower extremities, support stockings, inspect legs and feet daily for blisters and ulcerations. Mar, Bronchiectasis witho ut complication (ICD-10 - J47.9) Monitor for now. [...] symptoms worsen but encouraged to continue HEP Mar, Hypercholesteremia (ICD-10 - E78.00) Instructed on diet and exercise with continued statin therapy.Discussed the beneficial effects of lowering cholesterol in reducing the risk for cerebrovascular and cardiovascular disease. Mar, Gastroesophageal reflux disease with esophagitis without hemorrhage (ICD-10 - K21.00) Avoid lying flat after eating. Avoid eating 2 hours prior to bedtime. Smaller, frequent meals may be better tolerated.Weight loss if overweight.PPI with any heartburn.Monitor for dysphagia. Mar, Menopause (ICD-10 - Z78.0) Ca and VIt D supplements Weight bearing exercises DEXA qoy Mar, Screening mammogram for breast cancer (ICD-10 - Z12.31) Instructed patient on monthly SBE and yearly mammograms. [facility] Other 12-15-2023 Evaluation note* Encounter Date Diagnosis Assessment Notes Treatment Notes Treatment Clinical Notes Mar, Screening mammogram, encounter for (ICD-10 - Z12.31) [facility] Other 11-03-2023 Note[facility] Electrophysiology Consult Note Reason [...] Atrial fibrillation, hyperlipidemia was recently seen in [place] ED for irregular heartbeats. she has been [...] Rate And Rhythm: regular (more content not included)...[facility]10-13-2023 Evaluation note* Encounter Date Diagnosis Assessment Notes Treatment Notes Treatment Clinical Notes Jan, Mucopurulent chronic bronchitis (ICD-10 - J41.1) Push fluids, mucolytics as needed. Trial of Doxycycline qd Jan, Chronic obstructive pulmonary disease with (acute) exacerbation (ICD-10 - J44.1) Continue LABA/ICS - discussed adding GIANNA but not necessary at this time [facility] Other 10-04-2023 Evaluation note* Encounter Date Diagnosis Assessment Notes Treatment Notes Treatment Clinical Notes Jan, Acute bronchitis due to other specified organisms (ICD-10 - J20.8) [facility] Other 10-03-2023 Evaluation note* Encounter Date Diagnosis Assessment Notes Treatment Notes Treatment Clinical Notes Jan, Acute bronchitis due to other specified organisms (ICD-10 - J20.8) [facility] Other 09-26-2023 NoteUT Electrophysiology Consult Note Reason for visit: Palpitations HPI: Holley Vu is a 72 y.o. year old with past medical history of isolated Kramer's palsy, Atrial fibrillation, hyperlipidemia was recently seen in [place] ED for irregular heartbeats. she has been [...] triggered by hypokalemia sin (more content not included)...[facility]09-06-2023 Evaluation note* Encounter Date Diagnosis Assessment [...] daily stretching exercises Continue Tylenol as needed [facility] Other 05-11-2023 Evaluation note* Encounter Date Diagnosis Assessment Notes Treatment Notes Treatment Clinical Notes August, VALDES (dyspnea on exertion) (ICD-10 - R06.09) August, Bronchiectasis without complication (ICD-10 - J47.9) August, Subacute cough (ICD-10 - R05.2) [facility] Other 05-11-2023 Evaluation note* Encounter Date Diagnosis Assessment Notes Treatment Notes Treatment Clinical Notes August, Persistent cough (ICD-10 - R05.3) August, Bronchiectasis without complication (ICD-10 - J47.9) August, Dyspnea on exertion (ICD-10 - R06.09) [facility] Other 04-03-2023 Evaluation note* Encounter Date Diagnosis Assessment Notes Treatment Notes Treatment Clinical Notes Jul, Hypokalemia (ICD-10 - E87.6) [facility] Other 01-25-2022 Evaluation note* Encounter Date Diagnosis [...] Patient care instructions given in writting by [facility] document. [facility] Other Evaluation noteNo InformationNort Eval[facility] Other History general Narrative - Reported* Type Description Date Medical History Persistent cough Medical History Lumbosacral spondylosis with rad iculopathy Medical History Gastroesophageal ref lux disease with esophagitis without hemorrhage Medical History Left leg swelling Medical History Asymptomatic varicose veins of b [facility] lower extremities Medical History Estrogen deficiency Medical [...] History [facility] Hospitalization History SEE SURGICAL HX [facility] Other Summary Purpose Family History No Family [...] InformationNo InformationWants in TomorrowCheck Lungsflu shotmamm orderWellnessMammNo InformationDexa resultsLab resultsInhalers INFORMATION SOURCE (unrecogn ized section and content) DATE CREATED AUTHOR 08/18/2022 [facility] DATE CREATED AUTHOR AUTHOR'S ORGANIZ ATION 05/18/2023 [facility] FOR RECORDS PERTAINING TO PATIENTS WHO ARE [...] BE BASED ON THE PRIMARY CLINICAL RECORDS. [employer] provides no warranty or guarantee of the accuracy or completeness of information in this document.
[2023-07-15 16:33] LABS: Potassium 3.9 mmol/L (3.5-5.1)
== END 2023-07-15 16:09 | disposition home or self-care (01) ==
LOC: LAB 16:09
PROVIDERS: PCP Internal Medicine; Visit Provider Internal Medicine
DX: E87.6 Hypokalemia (principal)
CPT/HCPCS: 36415; 84132

== ENCOUNTER 2023-09-23 13:50 | Outpatient (OUT) | payer MEDICARE, OTHER, SELFPAY ==
[2023-09-23 14:24] LABS: Potassium 4.3 mmol/L (3.5-5.1)
== END 2023-09-23 13:51 | disposition home or self-care (01) ==
LOC: LAB 13:50
PROVIDERS: PCP Internal Medicine; Visit Provider Internal Medicine
DX: E87.6 Hypokalemia (principal)
CPT/HCPCS: 36415; 84132

== ENCOUNTER 2024-02-02 10:06 | Outpatient (OUT) | payer MEDICARE, OTHER, SELFPAY ==
--- OUTSIDE RECORDS SUMMARY | 2024-02-02 10:10 | XMS_ITS | CCD ---
Author Organization [facility] Care Team Providers Care Plate Put In Worker Name Role Phone YsabelGogo Babs Paulino Swain [...] Unavailable BALL, DR ALBRECHT Primary Care Unavailable Yadiel Chapman Consulting Unavailable BALL, DR ALBRECHT Admitting Unavailable BALL, DR ALBRECHT Attending Unavailable BALL, DR ALBRECHT Consulting Unavailable BALL, DR ALBRECHT Primary Care Unavailable BALL, DR ALBRECHT Primary Care Unavailable BALL, DR ALBRECHT Admitting Unavailable BALL, DR ALBERCHT Attending Unavailable BALL, DR ALBRECHT Consulting Unavailable Yadiel Chapman Consulting Unavailable MARY RODRÍGUEZ Attending Unavailable MARY RODRÍGUEZ Attending Unavailable ARTEMIO GOMEZ Attending Unavailable CHANTELL CAMACHO Attending Unavailable Allergies Allergy Classification Reported Allergen(s) Allergy Type Date of Onset Reaction(s) Facility (20 sources) Meperidine; Translations: [MEPERIDINE] Drug Allergy 3 Unknown [facility] Repository (1 source) Meperidine Drug Allergy 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] Onset: 7 Chronic Esophageal disorders (12 sources) Gastro-esophageal reflux [...] current use of drug therapy; Translations: [Other prison (current) drug therapy] Episodic Other circulatory disease [...] Value Interpretation Reference Range Facility Office Visiton 11-22-2023 Follow-up visit [id number] Shelia Vu 1950 F Date Provider Department Center 11/22/2023 Smooth-CHANTELL CAMACHO CARD [facility] No family history on file Level of Service:44516 UT OFFICE/OUTPATIENT ESTABLISHED MOD MDM 30 MIN Reason for Visit and Comments: Atrial Fibrillation [80] Hypertension [775645] Normal [facility] Office Visiton 05-17-2023 Follow-up visit [id number] HoraceShelia bain 1950 F Date Provider Department Center 05/17/2023 ArturoENRIQUE AGOSTOJAYNE [facility] No family history on file Level of Service:14661 UT OFFICE/OUTPATIENT ESTABLISHED MOD MDM 30 MIN Normal [facility] Office Visiton 02-04-2023 Follow-up visit [id number] HoraceShelia bain 1950 F Date Provider Department Center 02/04/2023 ArturoTRINY MARY [facility] No family history on file Level of Service:83230 UT OFFICE/OUTPATIENT ESTABLISHED MOD MDM 30-39 MIN Reason for Visit and Comments: Follow-up [945775] Normal [facility] Office Visiton 12-28-2022 Follow-up visit [id number] HoraceShelia bain 1950 Provider Department Center 12/28/2022 ARTEMIO BARTLETT AUSTEN [facility] No family history on file Level of Service:71070 UT OFFICE/OUTPATIENT NEW HIGH MDM 60-74 MINUTES Normal [facility] CBC AUTO DIFFon 08-17-2022 BASO # 0.0 103/ul Normal 0.0-0.1 [facility] Comment on above: Performed By: #### C RP #### [facility] [address] [place] [address] Dr. Lydia Ward Basophils/100 WBC (Bld) 0.7 % Normal 0.2-2.0 [facility] Comment on above: Performed By: #### C RP #### [facility] [address] [address] [address] Lydia Ward EO # 0.3 103/ul Normal 0.0-0.7 [facility] Comment on above: Performed By: #### C RP #### [facility] [address] [address] [address] Lydia Ward Eosinophils/100 WBC (Bld) 5.5 % Normal 0.9-7.0 [facility] Comment on above: Performed By: #### C RP #### [facility] [address] [place] [address] Dr. Lydia Ward Erythrocyte distribution width (RBC) [Ratio] 12.7 % Normal 11.0-15.0 [facility] Comment on above: Performed By: #### C RP #### [facility] [address] [place] [address] Dr. Lydia Ward Hematocrit (Bld) [Volume fraction] 45.1 % Normal 36.0-48.0 [facility] Comment on above: Performed By: #### C RP #### [facility] [address] [place] [address] Dr. Lydia Ward Hemoglobin (Bld) [Mass/Vol] 14.7 g/dL Normal 12.0-16.[address] [facility] Comment on above: Performed By: #### C RP #### [facility] [address] [place] [address] Dr. Lydia Ward IG # 0.01 10e3/ul Normal 0.00-0.03 [facility] Comment on above: Performed By: #### C RP #### [facility] [address] [place] [address] Dr. Lydia Ward IG % 0.2 % Normal 0.0-0.[address] [facility] Comment on above: Performed By: #### C RP #### [facility] [address] [place] [address] Dr. Lydia Ward LYMPH # 2.0 103/ul Normal 1.2-3.[address] [facility] Comment on above: Performed By: #### C RP #### [facility] [address] [place] [address] Dr. Lydia Ward Lymphocytes/100 WBC (Bld) 33.9 % Normal 20.5-60.[address] [facility] Comment on above: Performed By: #### C RP #### [facility] [address] [place] [address] Dr. Lydia Ward MANUAL DIFF REQ NO Normal [facility] Comment on above: Performed By: #### C RP #### [facility] [address] [place] [address] Dr. Lydia Ward MCH (RBC) [Entitic mass] 28.3 pg Normal 26.7-34.0 [facility] Comment on above: Performed By: #### C RP #### [facility] [address] [place] [address] Dr. Lydia Ward MCHC (RBC) [Mass/Vol] 32.6 g/dL Normal 29.9-35.2 [facility] Comment on above: Performed By: #### C RP #### [facility] [address] [place] [address] Dr. Lydia Ward MCV (RBC) [Entitic vol] 86.9 fL Normal 81.0-99.0 [facility] Comment on above: Performed By: #### C RP #### [facility] [address] [place] [address] Dr. Lydia Ward MONO # 0.5 103/ul Normal 0.3-0.8 [facility] Comment on above: Performed By: #### C RP #### [facility] [address] [place] [address] Dr. Lydia Ward Monocytes/100 WBC (Bld) 9.0 % Normal 1.7-12.0 [facility] Comment on above: Performed By: #### C RP #### [facility] [address] [place] [address] Dr. Lydia Ward NEUT # 3.1 103/ul Normal 1.4-6.5 [facility] Comment on above: Performed By: #### C RP #### [facility] [address] [place] [address] Dr. Lydia Ward Neutrophils/100 WBC (Bld) 50.7 % Normal 43.0-75.[address] [facility] Comment on above: Performed By: #### C RP #### [facility] [address] [place] [address] Dr. Lydia Ward Platelet mean volume (Bld) [Entitic vol] 9.1 fL Critically low 9.5-13.5 [facility] Comment on above: Performed By: #### C RP #### [facility] [address] [place] [address] Dr. Lydia Ward PLT 206 103/ul Normal 150-[address] [facility] Comment on above: Performed By: #### C RP #### [facility] [address] [place] [address] Dr. Lydia Ward RBC 5.19 106/ul Normal 4.20-5.40 [facility] Comment on above: Performed By: #### C RP #### [facility] [address] [address] [address] Lydia Ward WBC 6.0 103/ul Normal 4.0-11.0 [facility] Comment on above: Performed By: #### C RP #### [facility] [address] [place] [address] Dr. Lydia Ward CRPon 08-17-2022 CRP [Mass/Vol] mg/L Normal <=1.0 [facility] Comment on above: Performed By: #### C RP #### [facility] [address] [place] [address] CHEST HI RESOLUTIONon [...] YADIEL CHAPMAN Date: 2022-08-17 09:[address] [facility] POTASSIUMon 08-10-2022 Potassium [Moles/Vol] 4.5 mmol/L Normal 3.5-5.1 [facility] Comment on above: Performed By: #### K #### [facility] [address] [address] [address] Lydia Ward XR CHEST 2 Von [...] BEULAH RIVAS Date: 2022-08-10 18:[address] [facility] XR ANKLE LT 2Von 04-27-2022 XR [...] YOLIS SANCHEZ Date: 2022-04-27 19:[address] [facility] XR FOOT LT 2Von 04-27-2022 XR [...] YOLIS SANCHEZ Date: 2022-04-27 19:[address] [facility] CBC AUTO DIFFon 03-23-2022 BASO # 0.1 103/ul Normal 0.0-0.1 [facility] Comment on above: Performed By: #### D ATCBC #### [facility] [address] [place] [address] Dr. Lydia Ward Basophils/100 WBC (Bld) 0.5 % Normal 0.2-2.0 [facility] Comment on above: Performed By: #### D ATCBC #### [facility] [address] [place] [address] Dr. Lydia Ward EO # 0.1 103/ul Normal 0.0-0.7 [facility] Comment on above: Performed By: #### D ATCBC #### [facility] [address] [place] [address] Dr. Lydia Ward Eosinophils/100 WBC (Bld) 0.8 % Critically low 0.9-7.0 [facility] Comment on above: Performed By: #### D ATCBC #### [facility] [address] [place] [address] Dr. Lydia Ward Erythrocyte distribution width (RBC) [Ratio] 12.9 % Normal 11.0-15.0 [facility] Comment on above: Performed By: #### D ATCBC #### [facility] [address] [place] [address] Dr. Lydia Ward Hematocrit (Bld) [Volume fraction] 43.5 % Normal 36.0-48.0 [facility] Comment on above: Performed By: #### D ATCBC #### [facility] [address] [place] [address] Dr. Lydia Ward Hemoglobin (Bld) [Mass/Vol] 14.3 g/dL Normal 12.0-16.0 [facility] Comment on above: Performed By: #### D ATCBC #### [facility] [address] [place] [address] Dr. Lydia Ward IG # 0.05 10e3/ul Critically high 0.00-0.03 [facility] Comment on above: Performed By: #### D ATCBC #### [facility] [address] [place] [address] Dr. Lydia Ward IG % 0.5 % Normal 0.0-0.5 [facility] Comment on above: Performed By: #### D ATCBC #### [facility] [address] [place] [address] Dr. Lydia Ward LYMPH # 2.2 103/ul Normal 1.2-3.8 [facility] Comment on above: Performed By: #### D ATCBC #### [facility] [address] [place] [address] Dr. Lydia Ward Lymphocytes/100 WBC (Bld) 19.7 % Critically low 20.5-60.0 [facility] Comment on above: Performed By: #### D ATCBC #### [facility] [address] [place] [address] Dr. Lydia Ward MCH (RBC) [Entitic mass] 29.2 pg Normal 26.7-34.0 [facility] Comment on above: Performed By: #### D ATCBC #### [facility] [address] [place] [address] Dr. Lydia Ward MCHC (RBC) [Mass/Vol] 32.9 g/dL Normal 29.9-35.[address] [facility] Comment on above: Performed By: #### D ATCBC #### [facility] [address] [place] [address] Dr. Lydia Ward MCV (RBC) [Entitic vol] 88.8 fL Normal 81.0-99.0 [facility] Comment on above: Performed By: #### D ATCBC #### [facility] [address] [place] [address] Dr. Lydia Ward MONO # 0.9 103/ul Critically high 0.3-0.8 [facility] Comment on above: Performed By: #### D ATCBC #### [facility] [address] [place] [address] Dr. Lydia Ward Monocytes/100 WBC (Bld) 8.2 % Normal 1.7-12.0 [facility] Comment on above: Performed By: #### D ATCBC #### [facility] [address] [place] [address] Dr. Lydia Ward NEUT # 7.8 103/ul Critically high 1.4-6.5 [facility] Comment on above: Performed By: #### D ATCBC #### [facility] [address] [place] [address] Dr. Lydia Ward Neutrophils/100 WBC (Bld) 70.3 % Normal 43.0-75.0 [facility] Comment on above: Performed By: #### D ATCBC #### [facility] [address] [place] [address] Dr. Lydia Ward Platelet mean volume (Bld) [Entitic vol] 8.8 fL Critically low 9.5-13.[address] [facility] Comment on above: Performed By: #### D ATCBC #### [facility] [address] [place] [address] Dr. Lydia Ward PLT 276 103/ul Normal 150-[address] [facility] Comment on above: Performed By: #### D ATCBC #### [facility] [address] [place] [address] Dr. Lydia Ward RBC 4.90 106/ul Normal 4.20-5.[address] [facility] Comment on above: Performed By: #### D ATCBC #### [facility] [address] [place] [address] Dr. Lydia Ward WBC 11.1 103/ul Critically high 4.0-11.0 [facility] Comment on above: Performed By: #### D ATCBC #### [facility] [address] [place] [address] Dr. Lydia Ward RUTH - VITAMIN Don 03-23-2022 VIT D 25-OH 31.3 ng/mL Normal [facility] Comment on above: Performed By: #### C RP #### [facility] [address] [place] [address] Dr. Lydia Ward VIT D RANGES SEE BELOW Normal [facility] Comment on above: Result Comment: <20 ng/mL Vit D deficient 20 - <30 ng/mL Vit D insufficient 30 - 100 ng/mL Vit D sufficient >100 ng/mL Potential Toxicity Performed By: #### C RP #### [facility] [address] [place] [address] Dr. Lydia Ward RUTH- BMP WITH LIPIDon 2021 Anion gap [Moles/Vol] 7.6 mmol/L Normal [facility] Comment on above: Performed By: #### C RP #### [facility] [address] [place] [address] Dr. Lydia Ward Calcium [Mass/Vol] 9.4 mg/dL Normal 8.5-10.[address] [facility] Comment on above: Performed By: #### C RP #### [facility] [address] [place] [address] Dr. Lydia Ward Chloride [Moles/Vol] 100 mmol/L Normal 98-[address] [facility] Comment on above: Performed By: #### C RP #### [facility] [address] [place] [address] Dr. Lydia Ward Cholesterol [Mass/Vol] 126 mg/dL Normal <=[address] [facility] Comment on above: Performed By: #### C RP #### [facility] [address] [place] [address] Dr. Lydia Ward Cholesterol in HDL [Mass/Vol] 53 mg/dL Normal 40-[address] [facility] Comment on above: Performed By: #### C RP #### [facility] [address] [place] [address] Dr. Lydia Ward Cholesterol in LDL [Mass/Vol] 53.6 mg/dL Normal [facility] Comment on above: Performed By: #### C RP #### [facility] [address] [address] [address] Lydia Ward CO2 [Moles/Vol] 34.0 mmol/L Critically high 21.0-32.0 [facility] Comment on above: Performed By: #### C RP #### [facility] [address] [place] [address] Dr. Lydia Ward Creatinine [Mass/Vol] 0.76 mg/dL Normal 0.55-1.02 [facility] Comment on above: Performed By: #### C RP #### [facility] [address] [place] [address] Dr. Lydia Ward EGFR-AF [place]IM[place]ABWEAN >60 Normal >=60 [facility] Comment on above: Performed By: #### C RP #### [facility] [address] [place] [address] Dr. Lydia Ward EGFR-NON AF [place] >60 Normal >=60 [facility] Comment on above: Performed By: #### C RP #### [facility] [address] [place] [address] Dr. Lydia Ward Glucose [Mass/Vol] 83 mg/dL Normal 74-[address] [facility] Comment on above: Performed By: #### C RP #### [facility] [address] [place] [address] Dr. Lydia Ward HDL NORMAL > or = 60 mg/dl - LO W CARDIOVASCULAR RISK <40 mg/dl - HIGH CARDIOVASCULAR RISK Normal [facility] Comment on above: Performed By: #### C RP #### [facility] [address] [place] [address] Dr. Lydia Ward LDL CALC NORMAL SEE BELOW Normal [facility] Comment on above: Result Comment: <100 mg/dl OPTIMAL 100 - 129 mg/dl NEAR OR ABOVE OPTIMAL 130 - 159 mg/dl BORDERLINE HIGH 160 - 189 mg/dl HIGH >190 mg/dl VERY HIGH Performed By: #### C RP #### [facility] [address] [place] [address] Dr. Lydia Ward Potassium [Moles/Vol] 4.6 mmol/L Normal 3.5-5.[address] [facility] Comment on above: Performed By: #### C RP #### [facility] [address] [address] [address] Lydia Ward Sodium [Moles/Vol] 137 mmol/L Normal 136-[address] [facility] Comment on above: Performed By: #### C RP #### [facility] [address] [address] [address] Lydia Ward Triglyceride [Mass/Vol] 97 mg/dL Normal <=[address] [facility] Comment on above: Performed By: #### C RP #### [facility] [address] [address] [address] Lydia Ward Urea nitrogen [Mass/Vol] 17.0 mg/dL Normal 7.0-18.0 [facility] Comment on above: Performed By: #### C RP #### [facility] [address] [address] [address] Lydia Ward Urea nitrogen/Creatini ne [Mass ratio] 22.4 mg/mg Normal [facility] Comment on above: Performed By: #### C RP #### [facility] [address] [address] [address] Lydia Ward VLDL CALC 19.4 mg/dL Normal [facility] Comment on above: Performed By: #### C RP #### [facility] [address] [address] [address] Lydia Ward XR CHEST 2 Von [...] by: FIGUEROA MENDEZ Date: 2022-03-23 13:51 Normal [facility] MAMM SCREEN 3D EUFEMIA CADon 03-22-2022 MG MAMM SCREEN 3D EUFEMIA CAD Patient: HOLLEY VU Exam Date: 03/22/2022 : 1950 Gender:F Ordering : DR PAULINO SWAIN D.O. Admission #: [id number] Family : Order #: [id number] CLICK HERE TO VIEW EXAM RADIOLOGY REPORT [...] Treatments None Family Cancers None LOCATION: [facility] BREAST COMPOSITION: Extremely dense, which lowers [...] M.D. on 03/23/2022 at 12:[address] [facility] POTASSIUMon 11-17-2021 Potassium [Moles/Vol] 4.5 mmol/L Normal 3.5-5.1 [facility] Comment on above: Performed By: #### K #### [facility] [address] [place] [address] Dr. Lydia SHEIKH Quick Testingon 2021 Result Negative [facility] Other Vital Signs Date Time Vital Sign Value Performing Clinician Facility 03-23-2023 13:30-0500 Body height 160.02 cm Paulino Swain Other [facility] Other 03-23-2023 13:30-0500 Body mass index (BMI) [Ratio] 24.83 kg/m2 Paulino [employer] Other [facility] Other 03-23-2023 13:30-0500 Body weight 63.59 kg Paulino [employer] Other [facility] Other 03-23-2023 13:30-0500 Diastolic blood pressure 70 mm[Hg] Paulino Ball Other [facility] Other 03-23-2023 13:30-0500 Respiratory rate 12 /min Paulino Ball Other [facility] Other 03-23-2023 13:30-0500 Systolic blood pressure 146 mm[Hg] Paulino Ball Other [facility] Other 01-14-2023 11:15-0400 Body height 160.02 cm Paulino Ball Other [facility] Other 01-14-2023 11:15-0400 Body mass index (BMI) [Ratio] 24.23 kg/m2 Paulino Ball Other [facility] Other 01-14-2023 11:15-0400 Body weight 62.05 kg Paulino Ball Other [facility] Other 01-14-2023 11:15-0400 Diastolic blood pressure 69 mm[Hg] Paulino Ball Other [facility] Other 01-14-2023 11:15-0400 Respiratory rate 12 /min Paulino Ball Other [facility] Other 01-14-2023 11:15-0400 Systolic blood pressure 164 mm[Hg] Apulino Ball Other [facility] Other 12-08-2022 11:30-0400 Body height 160.02 cm Paulino Ball Other [facility] Other 12-08-2022 11:30-0400 Body mass index (BMI) [Ratio] 25.22 kg/m2 Paulino Ball Other [facility] Other 12-08-2022 11:30-0400 Body weight 64.59 kg Paulino Swain Other [facility] Other 12-08-2022 11:30-0400 Diastolic blood pressure 81 mm[Hg] Paulino Ball Other [facility] Other 12-08-2022 11:30-0400 Respiratory rate 12 /min Paulino Ball Other [facility] Other 12-08-2022 11:30-0400 Systolic blood pressure 161 mm[Hg] Paulino Swain Other [facility] Other Encounters Encounter Date Encounter Type Care Provider Facility Start: 11-22-2023 End: 11-22-2023 ambulatory [facility]ANTELL [facility] Start: 05-17-2023 End: 05-17-2023 ambulatory [facility] Start: 05-02-2023 End: 05-02-2023 ambulatory Paulino Swain Other [facility] Other Start: 05-02-2023 Patient encounter procedure Paulino Swain [facility] Start: 05-02-2023 Telephone encounter Paulino Ball [facility] Start: 04-25-2023 End: 04-25-2023 ambulatory Paulino Ball Other [facility] Other Start: 04-25-2023 Telephone encounter Paulino Ball [facility] Start: 04-05-2023 End: 04-05-2023 ambulatory Paulino Ball Other [facility] Other Start: 04-05-2023 Telephone encounter Paulino Ball [facility] Start: 03-24-2023 End: 03-24-2023 ambulatory Paulino Ball Other [facility] Other Start: 03-24-2023 Telephone encounter Paulino Swain [facility] Start: 03-23-2023 End: 03-23-2023 ambulatory Paulino Swain Other [facility] Other Start: 03-23-2023 Patient encounter procedure Paulino Swain [facility] Start: 03-23-2023 Telephone encounter Paulino Swain [facility] Start: 03-18-2023 End: 03-18-2023 ambulatory Paulino Ball Other [facility] Other Start: 03-18-2023 Telephone encounter Paulino Swain [facility] Start: 02-23-2023 End: 02-23-2023 ambulatory Paulino Ball Other [facility] Other Start: 02-23-2023 Nursing evaluation o f patient and report Paulino Swain [facility] Start: 02-04-2023 End: 02-04-2023 ambulatory [facility] Start: 01-14-2023 End: 01-14-2023 ambulatory Paulino Swain Other [facility] Other Start: 01-14-2023 Office outpatient vi sit 15 minutes Paulino Wiliam [facility] Start: 01-13-2023 End: 01-13-2023 ambulatory Paulino Wiliam Other [facility] Other Start: 01-13-2023 Telephone encounter Paulino Swain [facility] Start: 01-05-2023 End: 01-05-2023 ambulatory Paulino Ball Other [facility] Other Start: 01-05-2023 Telephone encounter Paulino Swain [facility] Start: 01-04-2023 End: 01-04-2023 ambulatory Paulino Ball Other [facility] Other Start: 01-04-2023 Telephone encounter Paulino Swain [facility] Start: 12-28-2022 End: 12-28-2022 ambulatory ARTEMIO GOMEZ [facility] Start: 12-22-2022 End: 12-22-2022 ambulatory Paulino Swain Other [facility] Other Start: 12-22-2022 Telephone encounter Paulino Swain [facility] Start: 12-08-2022 End: 12-08-2022 ambulatory Paulino Swain Other [facility] Other Start: 12-08-2022 Office outpatient vi sit 15 minutes Paulino Swain [facility] Start: 12-08-2022 Telephone encounter Paulino Swain [facility] Start: 11-16-2022 End: 11-16-2022 ambulatory Paulino Swain Other [facility] Other Start: 11-16-2022 Telephone encounter Paulino Swain [facility] Start: 11-05-2022 End: 11-05-2022 ambulatory Paulino Swain Other [facility] Other Start: 11-05-2022 Telephone encounter Paulino Swain [facility] Start: 08-19-[address] PAULINO SWAIN Facili ty:[facility] Start: 08-17-2022 End: 08-18-[address] PAULINO SWAIN Facility:[facility] Start: 08-12-2022 End: 08-12-[address] PAULINO SWAIN [facility] Other Start: 08-12-2022 Telephone encounter Paulino Swain [facility] Start: 08-10-2022 End: 08-11-[address] PAULINO SWAIN Facility:[facility] Start: 07-06-2022 End: 07-06-2022 ambulatory Paulino Swain Other [facility] Other Start: 07-06-2022 Telephone encounter Paulino Swain [facility] Start: 07-05-2022 End: 07-05-2022 ambulatory Paulino Swain Other [facility] Other Start: 07-05-2022 Telephone encounter Paulino Swain [facility] Start: 04-27-2022 End: 04-28-[address] PAULINO SWAIN Facility:[facility] Start: 04-23-2022 End: 04-23-2022 ambulatory Paulino Wiliam Other [facility] Other Start: 04-23-2022 Telephone encounter Paulino Swain [facility] Start: 03-23-2022 End: 03-24-[address] PAULINO SWAIN Facility:[facility] Start: 03-22-2022 End: 03-23-[address] PAULINO SWAIN Facility:[facility] Start: 03-22-2022 Adult health examination Grey Swain Other [facility] Other Start: 03-22-2022 Gynecological examination normal Paulino Swain Other [facility] Other Start: 11-17-2021 End: 11-18-[address] PAULINO SWAIN Facility:[facility] Start: 04-28-2021 End: 04-28-2021 ambulatory Gogo Grady Other [facility] Other Start: 04-28-2021 Office outpatient vi sit 5 minutes Gogo Grady [facility] Procedures Date Procedure Procedure Detail Performing Clinician Start: 10-20-2016 General examination of patient Paulino Swain Other Start: 10-20-2016 Screening mammography B enjamin Wiliam Other Depression screening Jayami kristina Swain Other Screening for malign ant neoplasm of breast Paulino Swain Other Screening for malign ant neoplasm of colon Paulion Swain Other Immunizations Immunization Date Immunization Notes Care Provider Brent allen 02-23-2023 influenza, high dose seasonal, preservative-free Paulino Swain Other [facility] Other 02-01-2022 influenza virus vaccine, split virus (incl. purified surface antigen) Paulino Swain Other [facility] Other 01-23-2021 influenza virus vaccine, split virus (incl. purified surface antigen) Paulino Wiliam Other [facility] Other 06-06-2020 COVID-19 Vaccine Pfi zer - Documentation Purposes Only Paulino Wiliam Other [facility] Other 05-16-2020 COVID-19 Vaccine Pfi zer - Documentation Purposes Only Paulino Wiliam Other [facility] Other 02-21-2020 pneumococcal polysaccharide vaccine, 23 valent Paulino Wiliam Other [facility] Other 01-09-2020 influenza virus vaccine, split virus (incl. purified surface antigen) Paulino Wiliam Other [facility] Other 02-15-2019 pneumococcal conjuga te vaccine, 13 valent Paulino Swain Other [facility] Other 01-30-2019 influenza virus vaccine, split virus (incl. purified surface antigen) Paulino Swain Other [facility] Other 01-24-2017 tetanus and diphther ia toxoids, adsorbed, preservative free, for adult use (5 Lf of tetanus toxoid and 2 Lf of diphtheria toxoid) Paulino Swain Other [facility] Other 02-03-2016 tetanus and diphther ia toxoids, adsorbed, preservative free, for adult use (5 Lf of tetanus toxoid and 2 Lf of diphtheria toxoid) Paulino Swain Other [facility] Other 01-28-2015 tetanus and diphther ia toxoids, adsorbed, preservative free, for adult use (5 Lf of tetanus toxoid and 2 Lf of diphtheria toxoid) Paulino Swain Other [facility] Other 02-22-2014 tetanus and diphther ia toxoids, adsorbed, preservative free, for adult use (5 Lf of tetanus toxoid and 2 Lf of diphtheria toxoid) Paulino Ball Other [facility] Other Payers Date Payer Category Payer Medicare [id number] 2.1 [id number] 1959 Self-pay [id number] 1959 Unknown [id number] 2. [id number] 1952 Unknown [id number] 2.16.84 [id number] 1952 Unknown [id number] 2.16.84 [id number] 1952 Unknown [id number] 2.16.84 [id number] 1952 Unknown [id number] 2.16.84 [id number] 1952 Unknown [id number] 2.16.84 [id number] 1952 Unknown [id number] 2.16.84 [id number] 1952 Unknown [id number] 2.16.84 [id number] 1950 Unknown [id number] 2.16.84 [id number] Unknown [id number] 2.16.84 [id number] Social History Date Type Detail Facility Sex Assigned At [facility] Other Clinical Notes 04-28-2021 to 11-22-2023 Note Date & Type Note Facility 11-22-2023 Note Pt is here for a six month follow up. Pt was advised to stop taking Propafenone, and Toprol tartrate per Mary Rodríguez RESIDENTIAL ADVISOR. Pt has hypertension, HLD, PVC's. Review of Systems Cardiovascular: Negative for chest pain and dyspnea on exertion. All other systems reviewed and are negative. [facility] 11-22-2023 Note Cardiovascular Medic [facility] SUBJECTIVE Chief Complaint Patient presents with Atrial Fibrillation Hypertension Holley Vu is a 73 y.o. female here for follow-up. HPI PMHx: palpitations, a.fib occurred in the setting of hypokalemia, HTN, HLD She has been feeling well. BP at home running 120-130s/60-70s Denies c/o CP, dyspnea, orthopnea, PND, LE edema, dizziness/LH, palpitations, syncope. 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 Patient Active Problem List Diagnosis Paroxysmal atrial fibrillation (CMS/HCC) Essential hypertension Mixed hyperlipidemia No past medical history on file. No family history on file. Social History Tobacco Use Smoking status: Never Smokeless tobacco: Never Substance Use Topics Alcohol use: Never Drug use: Never Allergies Allergen Reactions Demerol [Meperidine] Review of Systems Constitutional: Negative for chills, decreased appetite, fever, malaise/fatigue and weight gain. Cardiovascular: Negative for chest pain, dyspnea on exertion, irregular heartbeat, leg swelling, near-syncope, orthopnea, palpitations, paroxysmal nocturnal dyspnea and syncope. Hematologic/Lymphatic: Negative for bleeding problem. Does not bruise/bleed easily. OBJECTIVE Visit Vitals BP 146/67 (BP Location: Right arm, Patient Position: Sitting) Pulse 77 Ht 1.549 m (5' 1 ) Wt 64 kg (141 lb) SpO2 96% BMI 26.64 kg/m??? Smoking Status Never BSA 1.66 m??? Medications: Current Outpatient Medications: Advair HFA 115-21 mcg/actuation inhaler, INHALE 2 PUFFS INTO THE LUNGS TWICE A DAY FOR 30 DAYS, Disp: , Rfl: atorvastatin (Lipitor) 40 mg tablet, Take 40 mg by mouth in the morning., Disp: , Rfl: calcium citrate-vitamin D3 (Citracal+D) 315 mg-5 mcg (200 unit) tablet, Take 1 tablet by mouth in the morning., Disp: , Rfl: metoprolol tartrate (Lopressor) 50 mg tablet, Take 50 mg by mouth in the morning and at bedtime., Disp: , Rfl: pantoprazole (ProtoNix) 20 mg EC tablet, Take 20 mg by mouth before breakfast. Do not crush, chew, or split., Disp: , Rfl: potassium chloride CR (Klor-Con M20) 20 mEq ER tablet, Take 20 mEq by mouth in the morning, at noon, and at bedtime. Do not crush or chew., Disp: , Rfl: propafenone (Rythmol) 150 mg tablet, Take 150 mg by mouth every 8 (eight) hours., Disp: , Rfl: albuterol 90 mcg/actuation inhaler, Inhale 2 puffs every 6 (six) hours if needed for wheezing., Disp: , Rfl: Physical Exam Vitals reviewed. Constitutional: Appearance: Normal appearance. She is normal weight. HENT: Head: Normocephalic and atraumatic. Right Ear: External ear normal. Left Ear: External ear normal. Eyes: Extraocular Movements: Extraocular movements intact. Conjunctiva/sclera: Conjunctivae normal. Pupils: Pupils are equal, round, and reactive to light. Neck: Vascular: No carotid bruit. Cardiovascular: Rate and Rhythm: Normal rate and regular rhythm. Pulses: Normal pulses. Heart sounds: Normal heart sounds. Pulmonary: Effort: Pulmonary effort is normal. Breath sounds: Normal breath sounds. Abdominal: General: Bowel sounds are normal. Palpations: Abdomen is soft. Musculoskeletal: Cervical back: Neck supple. Right lower leg: Edema present. Left lower leg: Edema present. Comments: Trace BLE edema (R>L) Skin: General: Skin is warm and dry. Neurological: General: No focal deficit present. Mental Status: She is alert and oriented to person, place, and time. Psychiatric: Mood and Affect: Mood normal. Behavior: Behavior normal. Thought Content: Thought content normal. Judgment: Judgment normal. Labs: 09/23/2023: K 4.3 03/31/2023 CBC - unremarkable Cr 0.75, BUN 15, K 4.2, Na 141, eGFR >60, AST 18, ALT 25 Chol 154, LDL 78, HDL 54, trig 110 Testing/Procedures: Event monitor 02/04/2023 Sinus rhythm, no arrhythmias noted, VE <1%, SVE <1% Stress test 01/20/2023 No ischemic EKG changes Normal myocardial perfusion scan ECHO 01/19/2023 LVEF 55% Moderate mitral annular calcification with no significant mitral valve stenosis Mild to mod MR Mild to mod biatrial dilatation Normal right sided pressures No pericardial effusion EKG 08/22/2022 shows sinus rhythm with no PVCs or any other arrhythmias CT chest from 08/17/2022 shows mild emphysematous changes echocardiogram done in 2008 showed EF of 60% with moderate diastolic dysfunction and RVSP of 40 mmHg with mild TR and mild MR ASSESSMENT/PLAN: Diagnoses and all orders for this visit: Paroxysmal atrial fibrillation (CMS/HCC) - ECG 12 lead Essential hypertension Mixed hyperlipidemia PVC (premature ventricular contraction) Paroxysmal a.fib -NSR on EKG, no QT prolongation -She notes hx of a.fib being triggered by hypokalemia. She does not feel she has had any episodes of a.fib since her potassium has been controlled. -Discussed rate/rhythm control. She would like to continue propafenone for concern of going into a.fib. -[id number] (more content not included)... [facility] 05-17-2023 Note MD Electrophysiology Consult Note Reason for visit: Palpitations, [...] Atrial fibrillation, hyperlipidemia was recently seen in [place] ED for irregular heartbeats. she has been [...] Pulses Radial Pulse: (more content not included)... [facility] 05-17-2023 Note Patient here for 3 m o follow up event monitor. Had routine labs in Mar 2023. She denies chest pain, SOB, palpitations, and lightheadedness/syncope. Doing very well. Says BP at home is always normal. She does keep track. Review of Systems Cardiovascular: Positive for leg swelling (resolves by morning). All other systems reviewed and are negative. [facility] 05-02-2023 Evaluation note Encounter Date Diagnosis Assessment Notes Apr, Medicare annual wellness visit, subsequent (ICD-10 - Z00.00) [facility] Other [id number] Evaluation note* Encounter Date Diagnosis Assessment Notes [...] are maintaining regular scheduled appts with their embedded software engineer. - previous embedded software engineer d/c AC after years of not having [...] patient on monthly SBE and yearly mammograms. [facility] Other 12-15-2023 Evaluation note* Encounter Date Diagnosis Assessment Notes Treatment Notes Treatment Clinical Notes Mar, Screening mammogram, encounter for (ICD-10 - Z12.31) [facility] Other 11-03-2023 NoteUT Electrophysiology Consult Note Reason [...] Atrial fibrillation, hyperlipidemia was recently seen in [place] [facility] for irregular heartbeats. she has been [...] Rate And Rhythm: regular (more content not included)...[facility]* Encounter Date Diagnosis Assessment Notes Treatment Notes Treatment Clinical Notes Jan, Mucopurulent chronic bronchitis (ICD-10 - J41.1) Push fluids, mucolytics as needed. Trial of Doxycycline qd Jan, Chronic obstructive pulmonary disease with (acute) exacerbation (ICD-10 - J44.1) Continue LABA/ICS - discussed adding GIANNA but not necessary at this time [facility] Other [id number] Evaluation note* Encounter Date Diagnosis Assessment Notes Treatment Notes Treatment Clinical Notes Jan, Acute bronchitis due to other specified organisms (ICD-10 - J20.8) [facility] Other 10-03-2023 Evaluation note* Encounter Date Diagnosis Assessment Notes Treatment Notes Treatment Clinical Notes Jan, Acute bronchitis due to other specified organisms (ICD-10 - J20.8) [facility] Other 09-26-2023 NoteUT Electrophysiology Consult Note Reason for visit: Palpitations HPI: Holley Vu is a 72 y.o. year old with past medical history of isolated Kramer's palsy, Atrial fibrillation, hyperlipidemia was recently seen in [place] ED for irregular heartbeats. she has been [...] triggered by hypokalemia sin (more content not included)...[facility] Evaluation note* Encounter Date Diagnosis [...] daily stretching exercises Continue Tylenol as needed [facility] Other 05-11-2023 Evaluation note* Encounter Date Diagnosis Assessment Notes Treatment Notes Treatment Clinical Notes August, VALDES (dyspnea on exertion) (ICD-10 - R06.09) August, Bronchiectasis without complication (ICD-10 - J47.9) August, Subacute cough (ICD-10 - R05.2) [facility] Other 05-11-2023 Evaluation note* Encounter Date Diagnosis Assessment Notes Treatment Notes Treatment Clinical Notes August, Persistent cough (ICD-10 - R05.3) August, Bronchiectasis without complication (ICD-10 - J47.9) August, Dyspnea on exertion (ICD-10 - R06.09) [facility] Other 04-03-2023 Evaluation note* Encounter Date Diagnosis Assessment Notes Treatment Notes Treatment Clinical Notes Jul, Hypokalemia (ICD-10 - E87.6) [facility] Other 01-25-2022 Evaluation note* Encounter Date Diagnosis [...] Patient care instructions given in writting by [facility] document. [facility] Other Evaluation noteNo InformationNort [employer] Other History general Narrative - Reported* Type [...] History [facility] Hospitalization History SEE SURGICAL HX [facility] Other Summary Purpose Family History No Family [...] content) DATE CREATED AUTHOR 08/18/2022 [facility] DATE CREATED AUTHOR AUTHOR'S DAVID KEVIN 11/27/2023 [facility] FOR RECORDS PERTAINING TO PATIENTS WHO [...] BE BASED ON THE PRIMARY CLINICAL RECORDS. [employer] provides no warranty or guarantee of the accuracy or completeness of information in this document.
== END 2024-02-02 10:07 | disposition home or self-care (01) ==
LOC: LAB 10:06
PROVIDERS: PCP Internal Medicine; Visit Provider Internal Medicine
DX: E87.6 Hypokalemia (principal)
CPT/HCPCS: 36415; 84132

== ENCOUNTER 2024-03-26 09:26 | Outpatient (OUT) | payer MEDICARE, OTHER, SELFPAY ==
--- NOTE | 2024-03-26 09:39 | MM_ITS ---
Patient Name: RIGOBERTO ALVARENGA MR#: [id number] : 1950 Exam Date: 03/26/2024 Ordering Doctor: DR Paulino Swain D.O. RADIOLOGY REPORT PROCEDURE: MM TOMOSYNTHESIS SCREENING BI COMPARISON: MG MAMM SCREEN 3D EUFEMIA CAD, 03/22/2022. MM TOMOSYNTHESIS SCREENING BI, 03/23/2023. INDICATIONS: Screening Calculator Name NCI Breast Cancer Risk Assessment Tool 5 Year Breast Cancer Risk 2.10% Lifetime Breast Cancer Risk 5.80% Personal Breast Cancer No Personal Ovarian Cancer No Treatments None Family Cancers None LOCATION: [facility] BREAST COMPOSITION: The breasts are extremely dense, which lowers the sensitivity of mammography. FINDINGS: DIAGNOSTIC CATEGORY 2--BENIGN FINDING. NO CHANGE FROM COMPARISON. Scattered benign-appearing nodules are present. Scattered benign-appearing calcifications are present. Scattered benign-appearing lymph nodes are present. RIGHT BREAST: No significant suspicious finding. LEFT BREAST: No significant suspicious finding. RECOMMENDATIONS: ROUTINE MAMMOGRAM AND CLINICAL EVALUATION IN 12 MONTHS. PLEASE NOTE: A NORMAL MAMMOGRAM DOES NOT EXCLUDE THE POSSIBILITY OF BREAST CANCER. A CLINICALLY SUSPICIOUS PALPABLE LUMP SHOULD BE BIOPSIED. Dictated by: Zach Stone MD on 03/26/2024 at 14:10 Approved by: Zach Stone MD on 03/26/2024 at 14:12
== END 2024-03-26 09:27 | disposition home or self-care (01) ==
LOC: MAMMO 09:27
PROVIDERS: PCP Internal Medicine; Visit Provider Internal Medicine
DX: Z12.31 Encounter for screening mammogram for malignant neoplasm of breast (principal)
CPT/HCPCS: 77063; 77067

== ENCOUNTER 2024-07-23 12:04 | Outpatient (OUT) | payer OTHER, SELFPAY ==
--- OUTSIDE RECORDS SUMMARY | 2024-07-23 12:19 | XMS_ITS | CCD ---
Author Organization [facility] Care Team Providers Care Application Designer Name Role Phone [employer] Babs Paulino Swain [...] ALBRECHT Consulting Unavailable Zieber, Yadiel Consulting Unavailable JEFFREY MCMAHAN Attending Unavailable CHANTELL CAMACHO Attending Unavailable Allergies Allergy Classification Reported Allergen(s) Allergy Type Date of Onset Reaction(s) Facility (20 sources) Meperidine; Translations: [MEPERIDINE] Drug Allergy 3 Unknown [facility] Repository (1 source) Meperidine Drug Allergy [facility] Repository (2 sources) patient allergy list reviewed by nurse or physicia Propensity to adverse reactions 12-20-201 8 Comment:Done [facility] [employer] Other (2 sources) Allergies Reconciled Propensity to adverse reactions Unknown [facility] [employer] Other (1 source) Doxycycline; Translations: [DOXYCYCLINE] Drug Allergy 5 [facility] Repository Medications Current Medications Medication Drug Class(es) Dates Sig (Normalized) Sig (Original) AeroChamber Mini Chamber - (6 sources) Start: 03-23-2023 AeroChamber Mini Chamber - Use w/ MDI inhaled bid for 365 days Mar, Active amoxicillin 875 mg oral tablet (12 sources) Penicillin-class Antibacterial Start: 02-14-2024 take 1 tablet by mouth twice daily Amoxicillin 875 mg tablet Active 875 MG PO Twice daily 14 February 14, 2024 12:00am Start: 01-05-2023 take 1 tablet by andrew th every twelve hours Amoxicillin 875 MG 1 tablet Orally Twice a day for 7 days Jan, Not-Taking/PRN atorvastatin 40 mg oral tablet (20 sources) HMG-CoA Reductase Inhibitor Start: 07-01-2023 take 1 tablet by mouth in the evening Atorvastatin 40 mg tablet Active 0 .ROUTE .COMPLEX 90 July 01, 2023 11:55am TAKE 1 TABLET BY MOUTH IN THE EVENING Start: 07-01-2023 End: 07-01-2023 take 1 tablet by mouth once daily in the evening Atorvastatin 40 mg tablet Discontinued 40 MG PO Every evening June 30, 2023 11:00pm July 01, 2023 11:55am Start: 07-05-2022 take 1 tablet by andrew th in the evening Atorvastatin Calcium 40 MG 1 tablet Orally in the evening Jul, Active calcium carbonate 1500 mg / cholecalciferol 0.01 mg oral tablet (15 sources) Vitamin D Start: 12-12-2023 take 1 tablet by mouth twice daily at mealtime Calcium Carbonate-Vitamin D3 600 mg-10 mcg (400 unit) tablet Active 0 .ROUTE .COMPLEX 180 December 12, 2023 7:47am TAKE 1 TABLET BY MOUTH TWICE A DAY WITH FOOD FOR 90 DAYS Start: 12-12-2023 End: 12-12-2023 take 1 capsule by mouth twice daily Calcium Carbonate-Vitamin D3 600 mg-10 mcg (400 unit) capsule Discontinued 1 CAP PO Twice daily December 11, 2023 11:00pm December 12, 2023 7:47am Start: 12-22-2022 [facility] Calcium + Vitamin D3 [...] Start: 08-25-2022 take 1 puff(s) by mo [facility] twice daily Fluticasone-Salmeterol 250-50 MCG/ACT 1 puff, rinse mouth after use Inhalation Twice a day August, Active metoprolol tartrate 50 mg oral tablet (19 sources) beta-Adrenergic Shania Start: 11-07-2023 End: 12-26-2023 take 1 tablet by mouth twice daily at mealtime Metoprolol Tartrate 50 mg tablet Active 0 .ROUTE .COMPLEX 180 December 26, 2023 7:59pm TAKE 1 TABLET BY MOUTH TWICE A DAY WITH FOOD FOR 90 DAYS Start: 11-07-2023 End: 11-07-2023 take 1 tablet by mouth twice daily Metoprolol Tartrate 50 mg tablet Discontinued 50 MG PO Twice daily November 06, 2023 11:00pm November 07, 2023 10:02am Start: 11-16-20[address] [facility] every twelve hours Metoprolol Tartrate 50 MG 1 tablet with food Orally Twice a day Nov, Active pantoprazole 20 mg delayed release oral tablet (19 sources) Proton Pump Inhibitor Start: 10-27-2023 take 1 tablet by mouth once daily Pantoprazole 20 mg tablet,delayed release (DR/EC) Active 0 .ROUTE .COMPLEX 90 October 27, 2023 10:36am TAKE 1 TABLET BY MOUTH EVERY DAY FOR 90 DAYS Start: 10-27-2023 End: 10-27-2023 take 1 tablet by mouth once daily Pantoprazole 20 mg tablet,delayed release (DR/EC) Discontinued 20 MG PO Daily October 26, 2023 11:00pm October 27, 2023 10:37am Start: 11-05-2022 take 1 tablet by andrew th every twenty-four hours Pantoprazole Sodium 20 MG 1 tablet Orally Once a day Nov, Active Potassium Chloride (Klor-Con M20) 20 mEq tablet,ER particles/crystals (1 source) Start: 10-27-2023 take 1 tablet by mouth three times daily at mealtime Potassium Chloride (Klor-Con M20) 20 mEq tablet,ER particles/crystals Active 0 .ROUTE .COMPLEX 270 October 27, 2023 10:36am TAKE 1 TABLET BY MOUTH THREE TIMES A DAY WITH FOOD propafenone hydrochloride 150 mg oral tablet (19 sources) Antiarrhythmic Start: 10-04-2023 take 1 tablet by mouth three times daily Propafenone 150 mg tablet Active 0 .ROUTE .COMPLEX 270 October 04, 2023 7:40am TAKE 1 TABLET BY MOUTH THREE TIMES A DAY 90 DAYS Start: 10-04-2023 End: 10-04-2023 take 1 tablet by mouth three times daily Propafenone 150 mg tablet Discontinued 150 MG PO Three times daily October 03, 2023 11:00pm October 04, 2023 7:40am Start: 10-08-2022 take 1 tablet by andrew th three times daily Propafenone HCl 150 MG 1 tablet Orally three times daily Oct, Active Completed/Discontinued Medications Medication Drug Class(es) Dates Sig (Normalized) Sig (Original) doxycycline hyclate 100 mg oral capsule (12 sources) Tetracycline-cl ass Drug Start: 01-04-2023 take 1 capsule by mouth every twelve hours Doxycycline Hyclate 100 MG 1 capsule Orally Twice a day for 7 days Jan, Not-Taking/PRN microencapsulated potassium chloride 20 meq extended release oral tablet (20 sources) Start: 10-27-2023 End: 10-27-2023 take 1 tablet by mouth three times daily Potassium Chloride 20 mEq tablet,ER particles/crystals Discontinued 20 MEQ PO Three times daily October 26, 2023 11:00pm October 27, 2023 10:37am Start: 07-05-2022 take 1 tablet by andrew th three times daily at mealtime Klor-Con M20 20 MEQ 1 tablet with food Orally three times daily Jul, Active Problems Active Problems Problem Classification Problem [...] Coronary arteriosclerosis; Translations: [Atherosclerotic heart disease of [place] coronary artery without angina pectoris] Chronic Disorders of lipid metabolism (20 sources) Pure hypercholesterolemia; Translations: [Familial hypercholesterolemia] Onset: 7 Chronic Esophageal disorders (12 sources) Gastro-esophageal reflux disease with esophagitis; Translations: [Gastroesophageal reflux disease with esophagitis without hemorrhage] Chronic Essential hypertension (20 sources) Essential hypertension; Translations: [Essential (primary) hypertension] Onset: 3 Chronic Fluid and electrolyte disorders (20 sources) Hypokalemia; Translations: [Hypokalemia] Onset: 3 Episodic Immunizations and screening for infectious disease (5 sources) Encounter for screening for other viral diseases; Translations: [Vaccination given] Onset: 2 Resolved: 2 Episodic Menopausal disorders (20 sources) Decreased estrogen level; 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 Other aftercare (2 sources) Long-term current use of drug therapy; Translations: [Other emt intermediate (current) drug therapy] Episodic Other circulatory disease [...] Translations: [Chronic cough] Onset: 2 Episodic Other nutritional; endocrine; and metabolic disorders (2 sources) Overweight; Translations: [Overweight] Onset: 5 Episodic Other screening for suspected conditions (not mental disorders or infectious disease) (10 sources) Encounter for screening mammogram for malignant [...] varicose veins of bilateral lower extremities] Episodic Viral infection (2 sources) Disease caused by 2019-nCoV; Translations: [COVID-19] 02-14-2024 Episodic Past or Other Problems Problem Classification [...] Value Interpretation Reference Range Facility Office Visiton 06-13-2024 Follow-up visit [id number] Shelia Vu 1950 F Date Provider Department Center 06/13/2024 JEFFREY SANCHEZ ELIECER [facility] No family history on file Level of Service:03745 HI OFFICE/OUTPATIENT ESTABLISHED LOW MDM 20 MIN Reason for Visit and Comments: 6 month follow up [Other] Atrial Fibrillation [80] Normal [facility] Laboratory - Chemistry and C hemistry - challengeon 02-02-2024 Potassium [Moles/Vol] 4.0 mmol/L 3.5-5.1 [facility] Office Visiton 11-22-2023 Follow-up visit [id number] Shelia Vu 1950 F Date Provider Department Center 11/22/2023 CHANTELL CHIU ELIECER [facility] No family history on file Level of Service:48842 HI OFFICE/OUTPATIENT ESTABLISHED MOD MDM 30 MIN Reason for Visit and Comments: Atrial Fibrillation [80] Hypertension [567809] Normal [facility] CBC AUTO DIFFon 08-17-2022 BASO # 0.0 103/ul Normal 0.0-0.1 [facility] Comment on above: Performed By: #### C RP #### [facility] [address] [place] [address] Dr. Lydia Ward Basophils/100 WBC (Bld) 0.7 % Normal 0.2-2.0 [facility] Comment on above: Performed By: #### C RP #### [facility] [address] [place] [address] Dr. Lydia Ward EO # 0.3 103/ul Normal 0.0-0.7 [facility] Comment on above: Performed By: #### C RP #### [facility] [address] [place] [address] Dr. Lydia Ward Eosinophils/100 WBC (Bld) 5.5 % Normal 0.9-7.0 [facility] Comment on above: Performed By: #### C RP #### [facility] [address] [place] [address] Dr. Lydia Ward Erythrocyte distribution width (RBC) [Ratio] 12.7 % Normal 11.0-15.0 [facility] Comment on above: Performed By: #### C RP #### [facility] [address] [place] [address] Dr. Lydia Ward Hematocrit (Bld) [Volume fraction] 45.1 % Normal 36.0-48.0 [facility] Comment on above: Performed By: #### C RP #### [facility] [address] [place] [address] Dr. Lydia Ward Hemoglobin (Bld) [Mass/Vol] 14.7 g/dL Normal 12.0-16.0 [facility] Comment on above: Performed By: #### C RP #### [facility] [address] [place] [address] Dr. Lydia Ward IG # 0.01 10e3/ul Normal 0.00-0.03 [facility] Comment on above: Performed By: #### C RP #### [facility] [address] [place] [address] Dr. Lydia Ward IG % 0.2 % Normal 0.0-0.5 [facility] Comment on above: Performed By: #### C RP #### [facility] [address] [place] [address] Dr. Lydia Ward LYMPH # 2.0 103/ul Normal 1.2-3.8 [facility] Comment on above: Performed By: #### C RP #### [facility] [address] [place] [address] Dr. Lydia Ward Lymphocytes/100 WBC (Bld) 33.9 % Normal 20.5-60.0 [facility] Comment on above: Performed By: #### C RP #### [facility] [address] [place] [address] Dr. Lydia Ward MANUAL DIFF REQ NO Normal [facility] Comment on above: Performed By: #### C RP #### [facility] [address] [place] [address] Dr. Lydia Ward MCH (RBC) [Entitic mass] 28.3 pg Normal 26.7-34.0 [facility] Comment on above: Performed By: #### C RP #### [facility] [address] [place] [address] Dr. Lydia Ward MCHC (RBC) [Mass/Vol] 32.6 g/dL Normal 29.9-35.2 [facility] Comment on above: Performed By: #### C RP #### [facility] [address] [place] [address] Dr. Lydia Ward MCV (RBC) [Entitic vol] 86.9 fL Normal 81.0-99.0 [facility] Comment on above: Performed By: #### C RP #### [facility] [address] [place] [address] Dr. Lydia Ward MONO # 0.5 103/ul Normal 0.3-0.8 [facility] Comment on above: Performed By: #### C RP #### [facility] [address] [place] [address] Dr. Lydia Ward Monocytes/100 WBC (Bld) 9.0 % Normal 1.7-12.0 [facility] Comment on above: Performed By: #### C RP #### [facility] [address] [address] [address] Lydia Ward NEUT # 3.1 103/ul Normal 1.4-6.5 [facility] Comment on above: Performed By: #### C RP #### [facility] [address] [address] [address] yLdia Ward Neutrophils/100 WBC (Bld) 50.7 % Normal 43.0-75.0 [facility] Comment on above: Performed By: #### C RP #### [facility] [address] [place] [address] Dr. Lydia Ward Platelet mean volume (Bld) [Entitic vol] 9.1 fL Critically low 9.5-13.5 [facility] Comment on above: Performed By: #### C RP #### [facility] [address] [place] [address] Dr. Lydia Ward PLT 206 103/ul Normal 150-450 [facility] Comment on above: Performed By: #### C RP #### [facility] [address] [place] [address] Dr. Lydia Ward RBC 5.19 106/ul Normal 4.20-5.40 [facility] Comment on above: Performed By: #### C RP #### [facility] [address] [place] [address] Dr. Lydia Ward WBC 6.0 103/ul Normal 4.0-11.0 [facility] Comment on above: Performed By: #### C RP #### [facility] [address] [place] [address] Dr. Lydia Ward CRPon 08-17-2022 CRP [Mass/Vol] mg/L Normal <=1.0 [facility] Comment on above: Performed By: #### C RP #### [facility] [address] [place] [address] CHEST HI RESOLUTIONon [...] by: YADIEL CHAPMAN Date: 2022-08-17 09:51 Normal [facility] POTASSIUMon 08-10-2022 Potassium [Moles/Vol] 4.5 mmol/L Normal 3.5-5.1 [facility] Comment on above: Performed By: #### K #### [facility] [address] [place] [address] Dr. Lydia Ward XR CHEST 2 Von [...] RIVAS Date: 2022-08-10 18:46 Normal [facility] XR ANKLE LT 2Von 04-27-2022 XR [...] SANCHEZ Date: 2022-04-27 19:16 Normal [facility] XR FOOT LT 2Von 04-27-2022 XR [...] SANCHEZ Date: 2022-04-27 19:19 Normal [facility] CBC AUTO DIFFon 03-23-2022 BASO # 0.1 103/ul Normal 0.0-0.1 [facility] Comment on above: Performed By: #### D ATCBC #### [facility] [address] [address] [address] Lydia Ward Basophils/100 WBC (Bld) 0.5 % Normal 0.2-2.0 [facility] Comment on above: Performed By: #### D ATCBC #### [facility] [address] [address] [address] Lydia Ward EO # 0.1 103/ul Normal 0.0-0.7 [facility] Comment on above: Performed By: #### D ATCBC #### [facility] [address] [place] [address] Dr. Lydia Ward Eosinophils/100 WBC (Bld) 0.8 % Critically low 0.9-7.0 [facility] Comment on above: Performed By: #### D ATCBC #### [facility] [address] [place] [address] Dr. Lydia Ward Erythrocyte distribution width (RBC) [Ratio] 12.9 % Normal 11.0-15.0 [facility] Comment on above: Performed By: #### D ATCBC #### [facility] [address] [place] [address] Dr. Lydia Ward Hematocrit (Bld) [Volume fraction] 43.5 % Normal 36.0-48.0 [facility] Comment on above: Performed By: #### D ATCBC #### [facility] [address] [place] [address] Dr. Lydia Ward Hemoglobin (Bld) [Mass/Vol] 14.3 g/dL Normal 12.0-16.0 [facility] Comment on above: Performed By: #### D ATCBC #### [facility] [address] [place] [address] Dr. Lydia Ward IG # 0.05 10e3/ul Critically high 0.00-0.03 [facility] Comment on above: Performed By: #### D ATCBC #### [facility] [address] [place] [address] Dr. Lydia Ward IG % 0.5 % Normal 0.0-0.5 [facility] Comment on above: Performed By: #### D ATCBC #### [facility] [address] [place] [address] Dr. Lydia Ward LYMPH # 2.2 103/ul Normal 1.2-3.8 [facility] Comment on above: Performed By: #### D ATCBC #### [facility] [address] [place] [address] Dr. Lydia Ward Lymphocytes/100 WBC (Bld) 19.7 % Critically low 20.5-60.0 [facility] Comment on above: Performed By: #### D ATCBC #### [facility] [address] [address] [address] Lydia Ward MCH (RBC) [Entitic mass] 29.2 pg Normal 26.7-34.0 [facility] Comment on above: Performed By: #### D ATCBC #### [facility] [address] [address] [address] Lydia Ward MCHC (RBC) [Mass/Vol] 32.9 g/dL Normal 29.9-35.2 [facility] Comment on above: Performed By: #### D ATCBC #### [facility] [address] [address] [address] Lydia Ward MCV (RBC) [Entitic vol] 88.8 fL Normal 81.0-99.0 [facility] Comment on above: Performed By: #### D ATCBC #### [facility] [address] [place] [address] Dr. Lydia Ward MONO # 0.9 103/ul Critically high 0.3-0.8 [facility] Comment on above: Performed By: #### D ATCBC #### [facility] [address] [place] [address] Dr. Lydia Ward Monocytes/100 WBC (Bld) 8.2 % Normal 1.7-12.0 [facility] Comment on above: Performed By: #### D ATCBC #### [facility] [address] [place] [address] Dr. Lydia Ward NEUT # 7.8 103/ul Critically high 1.4-6.5 [facility] Comment on above: Performed By: #### D ATCBC #### [facility] [address] [address] [address] Lydia Ward Neutrophils/100 WBC (Bld) 70.3 % Normal 43.0-75.0 [facility] Comment on above: Performed By: #### D ATCBC #### [facility] [address] [address] [address] Lydia Ward Platelet mean volume (Bld) [Entitic vol] 8.8 fL Critically low 9.5-13.5 [facility] Comment on above: Performed By: #### D ATCBC #### [facility] [address] [place] [address] Dr. Lydia Ward PLT 276 103/ul Normal 150-450 [facility] Comment on above: Performed By: #### D ATCBC #### [facility] [address] [place] [address] Dr. Lydia Ward RBC 4.90 106/ul Normal 4.20-5.40 [facility] Comment on above: Performed By: #### D ATCBC #### [facility] [address] [place] [address] Dr. Lydia Ward WBC 11.1 103/ul Critically high 4.0-11.0 [facility] Comment on above: Performed By: #### D ATCBC #### [facility] [address] [place] [address] Dr. Lydia Ward RUTH - VITAMIN Don 03-23-2022 VIT D 25-OH 31.3 ng/mL Normal [facility] Comment on above: Performed By: #### C RP #### [facility] [address] [place] [address] Dr. Lydia Ward VIT D RANGES SEE BELOW Normal [facility] Comment on above: Result Comment: <20 ng/mL Vit D deficient 20 - <30 ng/mL Vit D insufficient 30 - 100 ng/mL Vit D sufficient >100 ng/mL Potential Toxicity Performed By: #### C RP #### [facility] [address] [place] [address] Dr. Lydia Ward RUTH- BMP WITH LIPIDon 2021 Anion gap [Moles/Vol] 7.6 mmol/L Normal [facility] Comment on above: Performed By: #### C RP #### [facility] [address] [place] [address] Dr. Lydia Ward Calcium [Mass/Vol] 9.4 mg/dL Normal 8.5-10.1 [facility] Comment on above: Performed By: #### C RP #### [facility] [address] [place] [address] Dr. Lydia Ward Chloride [Moles/Vol] 100 mmol/L Normal 98-107 [facility] Comment on above: Performed By: #### C RP #### [facility] [address] [place] [address] Dr. Lydia Ward Cholesterol [Mass/Vol] 126 mg/dL Normal <=200 [facility] Comment on above: Performed By: #### C RP #### [facility] [address] [address] [address] Lydia Ward Cholesterol in HDL [Mass/Vol] 53 mg/dL Normal 40-60 [facility] Comment on above: Performed By: #### C RP #### [facility] [address] [place] [address] Dr. Lydia Ward Cholesterol in LDL [Mass/Vol] 53.6 mg/dL Normal [facility] Comment on above: Performed By: #### C RP #### [facility] [address] [place] [address] Dr. Lydia Ward CO2 [Moles/Vol] 34.0 mmol/L Critically high 21.0-32.0 [facility] Comment on above: Performed By: #### C RP #### [facility] [address] [place] [address] Dr. Lydia Ward Creatinine [Mass/Vol] 0.76 mg/dL Normal 0.55-1.02 [facility] Comment on above: Performed By: #### C RP #### [facility] [address] [place] [address] Dr. Lydia Ward EGFR-AF ZAMBIAN >60 Normal >=60 [facility] Comment on above: Performed By: #### C RP #### [facility] [address] [place] [address] Dr. Lydia Ward EGFR-NON AF ZAMBIAN >60 Normal >=60 [facility] Comment on above: Performed By: #### C RP #### [facility] [address] [place] [address] Dr. Lydia Ward Glucose [Mass/Vol] 83 mg/dL Normal 74-106 [facility] Comment on above: Performed By: #### C RP #### [facility] [address] [address] [address] Lydia Ward HDL NORMAL > or = 60 mg/dl - LO W CARDIOVASCULAR RISK <40 mg/dl - HIGH CARDIOVASCULAR RISK Normal [facility] Comment on above: Performed By: #### C RP #### [facility] [address] [address] [address] Lydia Ward LDL CALC NORMAL SEE BELOW Normal [facility] Comment on above: Result Comment: <100 mg/dl OPTIMAL 100 - 129 mg/dl NEAR OR ABOVE OPTIMAL 130 - 159 mg/dl BORDERLINE HIGH 160 - 189 mg/dl HIGH >190 mg/dl VERY HIGH Performed By: #### C RP #### [facility] [address] [place] [address] Dr. Lydia Ward Potassium [Moles/Vol] 4.6 mmol/L Normal 3.5-5.1 [facility] Comment on above: Performed By: #### C RP #### [facility] [address] [address] [address] Lydia Ward Sodium [Moles/Vol] 137 mmol/L Normal 136-145 [facility] Comment on above: Performed By: #### C RP #### [facility] [address] [address] [address] Lydia Ward Triglyceride [Mass/Vol] 97 mg/dL Normal <=150 [facility] Comment on above: Performed By: #### C RP #### [facility] [address] [place] [address] Dr. Lydia Ward Urea nitrogen [Mass/Vol] 17.0 mg/dL Normal 7.0-18.0 [facility] Comment on above: Performed By: #### C RP #### [facility] [address] [place] [address] Dr. Lydia Ward Urea nitrogen/Creatini ne [Mass ratio] 22.4 mg/mg Normal [facility] Comment on above: Performed By: #### C RP #### [facility] [address] [place] [address] Dr. Lydia Ward VLDL CALC 19.4 mg/dL Normal [facility] Comment on above: Performed By: #### C RP #### [facility] [address] [address] [address] Lydia Ward XR CHEST 2 Von [...] FIGUEROA MENDEZ Date: 2022-03-23 13:51 Normal [facility] MG MAMM SCREEN 3D EUFEMIA CADon 03-22-2022 MG MAMM SCREEN 3D EUFEMIA CAD Patient: HOLLEY VU Exam Date: 03/22/2022 : 1950 Gender:F Ordering : DR PAULINO SWAIN D.O. Admission #: [id number] Family : Order #: [id number] CLICK HERE TO VIEW EXAM RADIOLOGY REPORT [...] None Family Cancers None LOCATION: [facility] BREAST COMPOSITION: Extremely dense, which lowers [...] Chapman M.D. on 03/23/2022 at 12:22 Normal [facility] POTASSIUMon 11-17-2021 Potassium [Moles/Vol] 4.5 mmol/L Normal 3.5-5.1 [facility] Comment on above: Performed By: #### K #### [facility] [address] [place] [address] Dr. Lydia SHEIKH Quick Testingon 2021 Result Negative [facility] Other Vital Signs Date Time Vital Sign Value Performing Clinician Facility 03-23-2023 13:30-0500 Body height 160.02 cm Paulino Ball Other [facility] Other 03-23-2023 13:30-0500 Body mass index (BMI) [Ratio] 24.83 kg/m2 Paulino Ball Other [facility] Other 03-23-2023 13:30-0500 Body weight 63.59 kg Paulino Ball Other [facility] Other 03-23-2023 13:30-0500 Diastolic blood pressure 70 mm[Hg] Paulino Ball Other [facility] Other 03-23-2023 13:30-0500 Respiratory rate 12 /min Paulino Ball Other [facility] Other 03-23-2023 13:30-0500 Systolic blood pressure 146 mm[Hg] Paulino Ball Other [facility] Other 01-14-2023 11:15-0400 Body height 160.02 cm Paulino Ball Other [facility] Other 01-14-2023 11:15-0400 Body mass index (BMI) [Ratio] 24.23 kg/m2 Paulino Ball Other [facility] Other 01-14-2023 11:15-0400 Body weight 62.05 kg Paulino Ball Other [facility] Other 01-14-2023 11:15-0400 Diastolic blood pressure 69 mm[Hg] Paulino Ball Other [facility] Other 01-14-2023 11:15-0400 Respiratory rate 12 /min Paulino Ball Other [facility] Other 01-14-2023 11:15-0400 Systolic blood pressure 164 mm[Hg] Paulino Ball Other [facility] Other 12-08-2022 11:30-0400 Body height 160.02 cm Paulino Ball Other [facility] Other 12-08-2022 11:30-0400 Body mass index (BMI) [Ratio] 25.22 kg/m2 Paulino Ball Other [facility] Other 12-08-2022 11:30-0400 Body weight 64.59 kg Paulino Ball Other [facility] Other 12-08-2022 11:30-0400 Diastolic blood pressure 81 mm[Hg] Paulino Ball Other [facility] Other 12-08-2022 11:30-0400 Respiratory rate 12 /min Paulino Ball Other [facility] Other 12-08-2022 11:30-0400 Systolic blood pressure 161 mm[Hg] Paulino Ball Other [facility] Other Encounters Encounter Date Encounter Type Care Provider Facility Start: 06-13-2024 End: 06-13-2024 ambulatory [facility] Start: 02-14-2024 End: 02-14-2024 ambulatory [facility] Work Phone: Start: 02-14-2024 End: 02-14-2024 Patient encounter procedure [facility] Work Phone: Start: 02-09-2024 End: 02-09-2024 Patient encounter procedure [facility] Work Phone: Start: 02-02-2024 Non-patient / Non-visit [id number] Work Phone: Start: 11-22-2023 End: 11-22-2023 ambulatory [facility] Start: 05-02-2023 End: 05-02-2023 ambulatory Paulino Swain Other [facility] Other Start: 05-02-2023 Patient encounter procedure Paulino Swain [facility] Start: 05-02-2023 Telephone encounter Paulino Ball [facility] Start: 04-25-2023 End: 04-25-2023 ambulatory Paulino Swain Other [facility] Other Start: 04-25-2023 Telephone encounter Paulino Ball [facility] Start: 04-05-2023 End: 04-05-2023 ambulatory Paulino Wiliam Other [facility] Other Start: 04-05-2023 Telephone encounter Paulino Ball [facility] Start: 03-24-2023 End: 03-24-2023 ambulatory Paulino Wiliam Other [facility] Other Start: 03-24-2023 Telephone encounter Paulino Ball [facility] Start: 03-23-2023 End: 03-23-2023 ambulatory Paulino Ball Other [facility] Other Start: 03-23-2023 Patient encounter procedure Paulino Ball [facility] Start: 03-23-2023 Telephone encounter Paulino Ball [facility] Start: 03-18-2023 End: 03-18-2023 ambulatory Paulino Ball Other [facility] Other Start: 03-18-2023 Telephone encounter Paulino Ball [facility] Start: 02-23-2023 End: 02-23-2023 ambulatory Paulino Ball Other [facility] Other Start: 02-23-2023 Nursing evaluation o f patient and report Paulino Ball [facility] Start: 01-14-2023 End: 01-14-2023 ambulatory Paulino Ball Other [facility] Other Start: 01-14-2023 Office outpatient vi sit 15 minutes Paulino Ball [facility] Start: 01-13-2023 End: 01-13-2023 ambulatory Paulino Ball Other [facility] Other Start: 01-13-2023 Telephone encounter Paulino Ball [facility] Start: 01-05-2023 End: 01-05-2023 ambulatory Paulino Ball Other [facility] Other Start: 01-05-2023 Telephone encounter Paulino Ball [facility] Start: 01-04-2023 End: 01-04-2023 ambulatory Paulino Ball Other [facility] Other Start: 01-04-2023 Telephone encounter Paulino Ball [facility] Start: 12-22-2022 End: 12-22-2022 ambulatory Paulino Ball Other [facility] Other Start: 12-22-2022 Telephone encounter Paulino Ball [facility] Start: 12-08-2022 End: 12-08-2022 ambulatory Paulino Ball Other [facility] Other Start: 12-08-2022 Office outpatient vi sit 15 minutes Paulino Ball [facility] Start: 12-08-2022 Telephone encounter Paulino Ball [facility] Start: 11-16-2022 End: 11-16-2022 ambulatory Paulino Ball Other [facility] Other Start: 11-16-2022 Telephone encounter Paulino Swain [facility] Start: 11-05-2022 End: 11-05-2022 ambulatory Paulino Swain Other [facility] Other Start: 11-05-2022 Telephone encounter Paulino Swain [facility] Start: 08-19-[address] PAULINO SWAIN Facili ty:[facility] Start: 08-17-2022 End: 08-18-[address] PAULINO SWAIN Facility:[facility] Start: 08-12-2022 End: 08-12-[address] PAULINO SWAIN [facility] Other Start: 08-12-2022 Telephone encounter Paulino Swain [facility] Start: 08-10-2022 End: 08-11-[address] PAULINO SWAIN Facility:[facility] Start: 07-06-2022 End: 07-06-2022 ambulatory Paulino Swain Other [facility] Other Start: 07-06-2022 Telephone encounter Paulino Swain [facility] Start: 07-05-2022 End: 07-05-2022 ambulatory Paulino Swain Other [facility] Other Start: 07-05-2022 Telephone encounter Paulino Swain [facility] Start: 04-27-2022 End: 04-28-[address] PAULINO SWAIN Facility:[facility] Start: 04-23-2022 End: 04-23-2022 ambulatory Paulino Swain Other [facility] Other Start: 04-23-2022 Telephone encounter Paulino Swain [facility] Start: 03-23-2022 End: 03-24-[address] PAULINO SWAIN Facility:[facility] Start: 03-22-2022 End: 03-23-[address] PAULINO SWAIN Facility:[facility] Start: 03-22-2022 Adult health examination Grey Swain Other [facility] Other Start: 03-22-2022 Gynecological examination normal Paulino Swain Other [facility] Other Start: 11-17-2021 End: 11-18-2021 ambulatory PAULINO WILIAM Facility:[facility] Start: 04-28-2021 End: 04-28-2021 ambulatory Gogo Grady Other [facility] Other Start: 04-28-2021 Office outpatient vi sit [...] Immunizations Immunization Date Immunization Notes Care Provider Fa ciliboni 02-09-2024 influenza, high dose seasonal, preservative-free [facility] 02-23-2023 influenza, high dose seasonal, preservative-free Paulino Swain Other [facility] Other 02-23-2023 influenza virus vaccine, unspecified formulation [facility] 02-01-2022 influenza virus vaccine, split virus (incl. purified surface antigen) Paulino Swain Other [facility] Other 02-01-2022 influenza virus vaccine, unspecified formulation [facility] 01-23-2021 influenza virus vaccine, split virus (incl. purified surface antigen) Paulino Swain Other [facility] Other 01-23-2021 influenza virus vaccine, unspecified formulation [facility] 06-06-2020 COVID-19 Vaccine Pfi zer - Documentation Purposes Only Paulino Swain Other [facility] 05-16-2020 COVID-19 Vaccine Pfi zer - Documentation Purposes Only Paulino Swain Other [facility] 02-21-2020 pneumococcal polysaccharide vaccine, 23 valent Paulino Swain Other [facility] 01-09-2020 influenza virus vaccine, split virus (incl. purified surface antigen) Paulino Swain Other [facility] Other 01-09-2020 influenza virus vaccine, unspecified formulation [facility] 02-15-2019 pneumococcal conjuga te vaccine, 13 valent Paulino Swain Other [facility] 01-30-2019 influenza virus vaccine, split virus (incl. purified surface antigen) Paulino Swain Other [facility] Other 01-30-2019 influenza virus vaccine, unspecified formulation [facility] 01-24-2017 tetanus and diphther ia toxoids, adsorbed, preservative free, for adult use (5 Lf of tetanus toxoid and 2 Lf of diphtheria toxoid) Paulino Swain Other [facility] 02-03-2016 tetanus and diphther ia toxoids, adsorbed, preservative free, for adult use (5 Lf of tetanus toxoid and 2 Lf of diphtheria toxoid) Paulino Swain Other [facility] 01-28-2015 tetanus and diphther ia toxoids, adsorbed, preservative free, for adult use (5 Lf of tetanus toxoid and 2 Lf of diphtheria toxoid) Paulino Swain Other [facility] 02-22-2014 tetanus and diphther ia toxoids, adsorbed, preservative free, for adult use (5 Lf of tetanus toxoid and 2 Lf of diphtheria toxoid) Paulino Swain Other [facility] Payers Date Payer Category Payer Medicare [id number] 2.1 [id number] 1959 Self-pay [id number] 1957 Unknown [id number] 2. [id number] 1950 Unknown [id number] 2.16.84 [id number] 1950 Unknown [id number] 2.16.84 [id number] 1950 Unknown [id number] 2.16.84 [id number] 1950 Unknown [id number] 2.16.84 [id number] 1950 Unknown [id number] 2.16.84 [id number] 1950 Unknown [id number] 2.16.84 [id number] 1950 Unknown [id number] 2.16.84 [id number] 1950 Unknown [id number] 2.16.84 [id number] Medicare Medicare [id number] Unknown [id number] 2.16.84 [id number] Social History Date Type Detail Facility Sex Assigned At [facility] Other Tobacco smoking stat [facility] Unknown if ever smoked [facility] Work Phone: Start: 02-14-2024 Sex Female (finding) [facility] Start: 1950 Sex Assigned At Female [facility] Clinical Notes 04-28-2021 to 06-13-2024 Note Date & Type Note Facility 06-13-2024 Note [facility] Subjective Holley Vu is a 74 y.o. year old female patient being seen for 6 month follow up and Atrial Fibrillation Patient Active Problem List Diagnosis Paroxysmal atrial fibrillation (CMS/HCC) Essential hypertension Mixed hyperlipidemia HPI Patient 74-year-old female with prior history of paroxysmal atrial fibrillation diagnosed 2008 and triggered by hypokalemia, PVCs, hypertension, hyperlipidemia, isolated Kramer's palsy. Patient is here today for follow-up visit. She states that she has been feeling very good. She denies any chest pain or shortness of breath at rest or with exertion. She denies orthopnea or paroxysmal nocturnal dyspnea. She denies any dizziness or syncope or near syncope. She denies any palpitations. She denies legs edema legs comfort on exertion She reports checking her blood pressure at home and it is usually normal in the 120-130/68-78. She denies smoking alcohol or illicit drugs. She has been following low-fat low calorie diet and walking. ROS All systems were reviewed and they were negative except for the positive findings noted above in the history Past Medical History: Diagnosis Date Atrial fibrillation (CMS/HCC) Hyperlipidemia Hypertension No past surgical history on file. No family history on file. Social History Tobacco Use Smoking status: Never Smokeless tobacco: Never Substance Use Topics Alcohol use: Never Drug use: Never Allergies Allergies Allergen Reactions Demerol [Meperidine] Doxycycline Nausea And Vomiting Medications Current Outpatient Medications: Advair HFA 115-21 mcg/actuation inhaler, INHALE 2 PUFFS INTO THE LUNGS TWICE A DAY FOR 30 DAYS, Disp: , Rfl: atorvastatin (Lipitor) 40 mg tablet, Take 40 mg by mouth in the morning., Disp: , Rfl: calcium citrate-vitamin D3 (Citracal+D) 315 mg-5 mcg (200 unit) tablet, Take 1 tablet by mouth in the morning., Disp: , Rfl: agxaj-cg-1-gtp-dcl-ifjhwox-ast 189-633-98-64 mg capsule, Take by mouth., Disp: , Rfl: metoprolol tartrate (Lopressor) 50 [...] every 8 (eight) hours., Disp: , Rfl: Objective Visit Vitals BP 159/81 (BP Location: Right arm, Patient Position: Sitting) Pulse 75 Ht 1.549 m (5' 1 ) Wt 60.8 kg (134 lb) SpO2 97% BMI 25.32 kg/m??? Smoking Status Never BSA 1.62 m??? Physical exam: GENERAL: alert and oriented x3, well developed, in no acute distress. HEAD: atraumatic, normocephalic. EYES: LUCIEN, EOMI. NECK: trachea midline, no JVD present, no carotid bruits present. CARDIAC: S1, S2 present. RRR. No murmur, rubs, or gallops. RESPIRATORY: CTAB, no increased effort of breathing, no rales, rhonchi, or wheezing. ABDOMEN: soft, nontender, nondistended. EXTREMITIES: no lower extremity edema, peripheral pulses are 2+ bilaterally. No rash/skin discoloration present. NEURO: strength/sensation equal and symmetric in bilateral upper and lower extremities. PSYCH: appropriate mood, affect, and judgement. Recent Labs 03/26/2024 White blood count 5.6, hemoglobin 14.2, hematocrit 44.5, platelets 192 Sodium 140, potassium 3.9, BUN 17, creatinine 0.82, GFR above 60, glucose 94, calcium 9.2 Total bilirubin 0.8, AST 26, ALT 31, alk phos 98, total protein 7.9, albumin 3.8 Triglyceride 85, cholesterol 150, LDL 76, HDL 57 TSH 1.16 Imaging and other tests EK11/22/2023 showed normal sinus rhythm, normal EKG Echo: 01/19/2023 at [place] Stress test: 01/20/2023 at [place] Nuclear portion EKG portion Cardiac cath: Event Monitor:02/04/2023 to 03/05/2023 at [place] Cardiac MRI: CX ray: Assessment/Plan Paroxysmal A-fib, on propafenone and metoprolol. She declined anticoagulation Mild valvular heart disease including mild to moderate mitral regurgitation Hypertension, on metoprolol. Blood pressure appears to be elevated today, she reports that it is normal at home in the 120-130/68-78. Her blood pressure has been always elevated in the doctor's office Hyperlipidemia, on atorvastatin, well controlled History of hypokalemia triggering A-fib, well-controlled Overweight, BMI 25.3 kg/m??? Plan: Continue current medications including atorvastatin, metoprolol,propafenone, and atorvastatin Patient still very hesitant to be on anticoagulation to prevent stroke thinking that her A-fib has been suppressed for many years and it was thought originally to be triggered by hypokalemia. I explained to her the natural history of A-fib and that it could be asymptomatic. We discussed the option of lo (more content not included)... [facility] 02-09-2024 Evaluation note Diagnosis Onset Date Resolution Encounter for immunization acute February 08 10:26am COVID acute February 14, 2024 10:50am Acute exacerbation of chronic obstructive airways disease noneactive February 13 10:50am [facility] Work Phone: [phone]) 699-830008-20-2024 NotePt is here for a six month follow up. Pt was advised to stop taking Propafenone, and Toprol tartrate per Steven Rodríguez LOOP SEWER. Pt has hypertension, HLD, PVC's. Review of Systems Cardiovascular: Negative for chest pain and dyspnea on exertion. All other systems reviewed and are negative.[facility] 11-22-2023 NoteCardiovascular Medicine [facility] SUBJECTIVE Chief Complaint Patient presents with [...] propafenone for concern of going into a.fib. -[id number] (more content not included)...[facility] 05-02-2023 Evaluation note* Encounter Date Diagnosis Assessment Notes Treatment Notes Treatment Clinical Notes Apr, Medicare annual wellness visit, subsequent (ICD-10 - Z00.00) [facility] Other 12-20-2023 Evaluation note* Encounter Date Diagnosis [...] are maintaining regular scheduled appts with their manager emergency. - previous manager emergency d/c AC after years of not having [...] patient on monthly SBE and yearly mammograms. [facility] Other 12-15-2023 Evaluation note* Encounter Date Diagnosis Assessment Notes Treatment Notes Treatment Clinical Notes Mar, Screening mammogram, encounter for (ICD-10 - Z12.31) [facility] Other 10-13-2023 Evaluation note* Encounter Date Diagnosis Assessment Notes Treatment Notes Treatment Clinical Notes Jan, Mucopurulent chronic bronchitis (ICD-10 - J41.1) Push fluids, mucolytics as needed. Trial of Doxycycline qd Jan, Chronic obstructive pulmonary disease with (acute) exacerbation (ICD-10 - J44.1) Continue LABA/ICS - discussed adding GIANNA but not necessary at this time [facility] Other 10-04-2023 Evaluation note* Encounter Date Diagnosis Assessment Notes Treatment Notes Treatment Clinical Notes Jan, Acute bronchitis due to other specified organisms (ICD-10 - J20.8) [facility] Other 10-03-2023 Evaluation note* Encounter Date Diagnosis Assessment Notes Treatment Notes Treatment Clinical Notes Jan, Acute bronchitis due to other specified organisms (ICD-10 - J20.8) [facility] Other 09-06-2023 Evaluation note* Encounter Date Diagnosis Assessment Notes [...] daily stretching exercises Continue Tylenol as needed [facility] Other 05-11-2023 Evaluation note* Encounter Date Diagnosis Assessment Notes Treatment Notes Treatment Clinical Notes August, VALDES (dyspnea on exertion) (ICD-10 - R06.09) August, Bronchiectasis without complication (ICD-10 - J47.9) August, Subacute cough (ICD-10 - R05.2) [facility] Other 05-11-2023 Evaluation note* Encounter Date Diagnosis Assessment Notes Treatment Notes Treatment Clinical Notes August, Persistent cough (ICD-10 - R05.3) August, Bronchiectasis without complication (ICD-10 - J47.9) August, Dyspnea on exertion (ICD-10 - R06.09) [facility] Other 04-03-2023 Evaluation note* Encounter Date Diagnosis Assessment Notes Treatment Notes Treatment Clinical Notes Jul, Hypokalemia (ICD-10 - E87.6) [facility] Other 01-25-2022 Evaluation note* Encounter Date Diagnosis [...] Patient care instructions given in writting by CDC Care At Home document. [facility] Other [facility]No [facility] Other History general Narrative - Reported* Type [...] History [facility]LT Hospitalization History SEE SURGICAL HX [facility] Other Summary Purpose Family History No Family History Records Found Relationship Condition Age at Onset Recorded Date/T pato father Unknown Diabetes mellitus Unknown Heart disease Unknown Malignant neoplasm Unknown mother Malignant neoplasm Unknown Hypertension Unknown Unknown sister Hypertension Unknown Advance Directives No Advanced Directives Records Found Advance Directive Response Recorded Date/ Time Advance Directives No February 09, 2024 10:23am Chief Complaint and Reason for Visit Chief Complaint Admit Date flu shot February 09, 2024 1 0:26am COVID+/Cough February 14, 2024 10:50am Reason for Visit Admit Date Encounter for immunization February 09, 2024 10:26am COVID February 14, 2024 10:50am Acute exacerbation of chronic obstructiv e airways disease February 14, 2024 10:50am Additional Source Comments REASON FOR VISIT (unrecogniz ed section and content) #4 RED BAM 4, EXPOSURE, COVI D Nurse Visit- Self PayNo Informationstanding lab orderrefillRe-Send OrdersNo InformationNo InformationRefillrefillupdate on inhaler and legResultsRefillNo InformationNo InformationWants in TomorrowChe Lungsflu shotmamm orderWellnessMammNo InformationDexa resultsLab resultsInhalers INFORMATION SOURCE (unrecogn ized section and content) DATE CREATED AUTHOR 08/18/2022 [facility] DATE CREATED AUTHOR 'S ORGANIZ ATION 06/15/2024 [facility] Care Teams (unrecognized sec tion and content) Team Status: Active Member Role Status Dates Paulino Swain , Primary Care Provider Active Team Status: Active Member Role Status Dates Paulino Swain DO Primary Care Provide r, Attending Provider Active Start: February 02, 2024 Team Status: Inactive Member Role Status Dates Paulino Wiliam DO Primary Care Provider Active Start: February 09, 2024 End: February 09, 2024 Fina Reza MD Attending Provider Active St art: February 09, 2024 End: February 09, 2024 Team Status: Inactive Member Role Status Dates Paulino Swain , Primary Care Provide r, Attending Provider Active Start: February 14, 2024 End: February 14, 2024 Goals (unrecognized section and content) Goals may be documented in a n alternate section FOR RECORDS PERTAINING TO PATIENTS WHO ARE [...] BE BASED ON THE PRIMARY CLINICAL RECORDS. [facility] [employer] [facility]. provides no warranty or guarantee of the accuracy or completeness of information in this document.
[2024-07-23 12:44] LABS: Potassium 4.6 mmol/L (3.5-5.1)
== END 2024-07-23 12:05 | disposition home or self-care (01) ==
LOC: LAB 12:08
PROVIDERS: PCP Internal Medicine; Visit Provider Internal Medicine
DX: E87.6 Hypokalemia (principal)
CPT/HCPCS: 36415; 84132

== ENCOUNTER 2024-11-01 15:14 | Outpatient (OUT) | payer OTHER, SELFPAY ==
--- OUTSIDE RECORDS SUMMARY | 2024-11-01 15:16 | XMS_ITS | Clinical Summary ---
Author Organization [facility] Address [address] [place] [address] Care Team Providers Care Gearcase Assembler Name Role Phone Paulino Swain DO Primary Care Provider [phone] Allergies Active Allergy Reactions Criticality Noted Date Comments Meperidine 12/28/2022 Doxycycline Nausea And Vomiting 06/13/2024 Medications pantoprazole (ProtoNix) 20 mg EC tablet Take 20 mg by mouth before breakfast. Do not crush, chew, or split. Active metoprolol tartrate (Lopressor) 50 mg tablet Take 50 mg by mouth in the morning and at bedtime. Active propafenone (Rythmol) 150 mg tablet Take 150 mg by mouth every 8 (eight) hours. Active atorvastatin (Lipitor) 40 mg tablet Take 40 mg by mouth in the morning. Active potassium chloride CR (Klor-Con M20) 20 mEq ER tablet Take 20 mEq by mouth in the morning, at noon, and at bedtime. Do not crush or chew. Active calcium citrate-vitamin D3 (Citracal+D) 315 mg-5 mcg (200 unit) tablet Take 1 tablet by mouth in the morning. Active Advair HFA 115-21 mcg/actuation inhaler INHALE 2 PUFFS INTO THE LUNGS TWICE A DAY FOR 30 DAYS 05/06/2023 Active lazvc-dx-7-dha- jyl-wrqnrvg-kby 556-572-15-64 mg capsule Take by mouth. Active Active Problems Problem Noted Date Diagnosed Date Overweight (BMI 25.0-29.9) 06/13/2024 Essential hypertension 02/13/2023 Mixed hyperlipidemia 02/13/2023 Paroxysmal atrial fibrillation 02/04/2023 Social History Tobacco Use Types Packs/Day Years Used Date Smoking Tobacco: Never Smokeless Tobacco: Never Tobacco Cessation:Counseling Given: Not Answered Alcohol Use Standard Drinks/Week Comments Never 0 (1 standard drink = 0.6 oz pur e alcohol) [place] Safety & Environment Answer Date Rec orded Fear of Current or Ex-Partner Not on file Emotionally Abused Not on file 05/27/2023 Physically Abused Not on file 05/27/2023 Sexually Abused Not on file 05/27/2023 Physically or Sexually Abused Not on file Comments Unknown Sex and Gender Information Value Date Recorded Sex Assigned at Not on file Legal Sex Female 9:41 AM EDT Gender Identity Not on file Sexual Orientation Not on file Last Filed Vital Signs Vital Sign Reading Time Taken Comments Blood Pressure 159/81 06/13/2024 9:48 AM EDT Pulse 75 06/13/2024 9:48 AM EDT Temperature - - Respiratory Rate 12 02/04/2023 11:09 AM EDT Oxygen Saturation 97% 06/13/2024 9:48 AM EDT Inhaled Oxygen Concentration - - Weight 60.8 kg (134 lb) 06/13/2024 9:48 AM EDT Height 154.9 cm (5' 1 ) 06/13/2024 9:48 AM EDT Body Mass Index 25.32 06/13/2024 9:48 AM EDT Plan of Treatment Health Maintenance Due Date Last Done Comments CT Colonography 1952 Colonoscopy 1952 FIT-DNA 1952 FOBT 1950 Medicare Annual Wellness (AWV) 1952 Sigmoidoscopy 1952 Depression Screening 1964 Adult Tetanus 1974 Mammogram 1992 Pneumococcal Vaccine: 50+ Years (1 of 1 - PCV) 2002 Fall Risk Screening 2017 Colorectal Cancer Screening 04/15/2023 FIT 04/15/2023 04/15/2022 COVID-19 Vaccine ( season) 2023 03/12/2021, 06/06/2020, 05/16/2020 Influenza Vaccine (#1) 2024 , 02/01/2022, 01/24/2017, Additional history exists Zoster Vaccines Completed 07/29/2022, 05/27/2022 HIB Vaccines Aged Out No longer eligi ble based on patient's age to complete this topic HPV Vaccines Aged Out No longer eligi ble based on patient's age to complete this topic IPV Vaccines Aged Out No longer eligi ble based on patient's age to complete this topic Meningococcal B Vaccine Aged Out No l onger eligible based on patient's age to complete this topic Meningococcal Vaccine Aged Out No dru zechariah eligible based on patient's age to complete this topic Rotavirus Vaccines Aged Out No longer eligible based on patient's age to complete this topic Insurance [employer] Care Teams Gearcase Assembler Relationship Specialty Start Date End Date Paulino Swain DO [address] [place] [id number] PCP - General 02/04/23
[2024-11-01 16:18] LABS: Potassium 4.5 mmol/L (3.5-5.1)
== END 2024-11-01 15:15 | disposition home or self-care (01) ==
LOC: LAB 15:14
PROVIDERS: PCP Internal Medicine; Visit Provider Internal Medicine
DX: E87.6 Hypokalemia (principal)
CPT/HCPCS: 36415; 84132

== ENCOUNTER 2025-01-01 11:10 | Outpatient (OUT) | payer OTHER, SELFPAY ==
--- OUTSIDE RECORDS SUMMARY | 2025-01-01 10:20 | XMS_ITS | Encounter Summary ---
Author Organization [facility] Address [address] [place] [address] Care Team Providers Care Economic Analyst Name Role Phone Paulino Swain DO Primary Care Provider Reason for Referral * (Routine) - Pending Review Specialty Diagnoses / Procedures Referred By Contac t Referred To Contact Diagnoses Paroxysmal atrial fibrillation (CMS/HCC) Procedures ECG 12 lead unit performed Carmelita Crowley CNP [address] [place] [address] Phone: tel: fax: Referral ID Status Reason Start Date Expiration Date V isits Requested Visits Authorized [id number] Pending Review 01/01/2025 01/01/2026 1 1 Reason for Visit * Reason Comments Follow-up Patient is here toda y for a 6 month routine follow up appointment. Patient denies chest pain, heart racing/palpitations, dizziness/lightheaded, fatigue. Patient complains of leg swelling which resolves during the night. Atrial Fibrillation Hypertension Hyperlipidemia Encounter Details Date Type Department Care Team (Late st Contact Info) Description 01/01/2025 10:20 AM EDT Office Visit [facility] [address] [place] [id number] Carmelita Crowley CNP [address] [place] [address] Paroxysmal atrial fibrillation (CMS/HCC) (Primary Dx); Essential hypertension; Mixed hyperlipidemia; PVC (premature ventricular contraction) Social History Tobacco Use Types Packs/Day Years Used Date Smoking Tobacco: Never Smokeless Tobacco: Never Alcohol Use Standard Drinks/Week Comments Never 0 [...] Information Value Date Recorded Sex Assigned at Female 12/26/2024 11:35 AM EDT Legal Sex Female 9:41 AM EDT Gender Identity Female 12/26/2024 11:35 AM EDT Sexual Orientation Heterosexual or Straight 12/04 11:35 AM EDT documented as of this encounter Last Filed Vital Signs Vital Sign Reading Time Taken Comments Blood Pressure 152/73 01/01/2025 10:30 AM EDT Pulse 78 01/01/2025 10:30 AM EDT Temperature - - Respiratory Rate - - Oxygen Saturation 95% 01/01/2025 10:30 AM EDT Inhaled Oxygen Concentration - - Weight 60.8 kg (134 lb) 01/01/2025 10:30 AM EDT Height 154.9 cm (5' 1 ) 01/01/2025 10:30 AM EDT Body Mass Index 25.32 01/01/2025 10:30 AM EDT documented in this encounter Plan of Treatment Not on file documented as of this encounter Procedures Procedure Name Priority Date/Time Associated Diagnosis Comments ECG 12 LEAD UNIT PERFORMED Routine 01/01/2025 10:52 AM EDT Paroxysmal atrial fibrillation (CMS/HCC) documented in this encounter Results * ECG 12 lead unit performed (01/01/2025 10:52 AM EDT) Carmelita Crowley CNP ECG ORDERABLES Final Result documented in this encounter Visit Diagnoses Diagnosis Paroxysmal atrial fibrillation (CMS/HCC)- Primary Atrial fibrillation Essential hypertension Unspecified essential hypertension Mixed hyperlipidemia PVC (premature ventricular contraction) Other premature beats documented in this encounter Care Teams Economic Analyst Relationship Specialty Start Date End Date Paulino Swain DO [address] [facility] [place] [address] PCP - General 02/04/23 documented as of this encounter
--- OUTSIDE RECORDS SUMMARY | 2025-01-01 10:25 | XMS_ITS ---
Author Name Auto Generated Organization [facility] Care Team Providers Care Pocket Stitcher Name Role Phone ESTUARDO WEINSTEIN Attending Unavailable CHANTELL CAMACHO Attending Unavailable JEFFREY HANDY Attending Unavailable PROBLEMS DATE TYPE CONDITION / CODE ATTENDING STATUS [facility] 02/13/2023 Admitting Diagnosis Mixed hyperlipidemia / E78.2(ICD-10) CHANTELL CAMACHO Active [facility] 02/13/2023 Admitting Diagnosis Essential (primary) hypertension / I10(ICD-10) CHANTELL CAMACHO Active [facility] 02/04/2023 Admitting Diagnosis Paroxysmal atrial fibrillation / I48.0(ICD-10) CHANTELL CAMACHO Active [facility] 01/01/2025 Admitting Diagnosis Ventricular premature depolarization / I49.3(ICD-10) CHANTELL CAMACHO Active [facility] 06/13/2024 Admitting Diagnosis Overweight / E66.3(ICD-10) JEFFREY HANDY Active [facility] PROCEDURES No Procedure Records Found RESULTS PROGRESS Observed: 01/01/2025 10:20 AM Status: COMPLETED Source: [facility] Cardiovascular Medicine [facility] SUBJECTIVE Chief Complaint Patient presents with Follow-up Patient is here today for a 6 month routine follow up appointment. Patient denies chest pain, heart racing/palpitations, dizziness/lightheaded, fatigue. Patient complains of leg swelling which resolves during the night. Atrial Fibrillation Hypertension Hyperlipidemia Holley Vu is a 74 y.o. female here for follow-up. Atrial Fibrillation Symptoms are negative for chest pain, palpitations and syncope. Past medical history includes atrial fibrillation and hyperlipidemia. Hypertension Pertinent negatives include no chest pain, malaise/fatigue, orthopnea, palpitations or PND. Hyperlipidemia Pertinent negatives include no chest pain. PMHx: palpitations, a.fib occurred in the setting of hypokalemia, HTN, HLD 11/22/2023 She has been feeling well. BP at home running 120-130s/60-70s Denies c/o CP, dyspnea, orthopnea, PND, LE edema, dizziness/LH, palpitations, syncope. 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 01/01/2025 She has been doing well since last seen. She traveled to [place] [employer] this summer and climbed [employer]. She developed altitiude sickness. She did experience SOB during this time but this resolved with rest and coming down to normal altitude. She gets some leg swelling at the end of the day. She had a venous US, she has varicose veins. She is contemplating seeing a vein specialist. Her PCP started advair for her to help with bronchitis. BP at home running 110-130s/60-80s. Denies any other c/o dyspnea, no CP, orthopnea, PND, dizziness/LH, palpitations, syncope. Patient Active Problem List Diagnosis Paroxysmal atrial fibrillation (CMS/HCC) Essential hypertension Mixed hyperlipidemia Overweight (BMI 25.0-29.9) Past Medical History: Diagnosis Date Atrial fibrillation (CMS/HCC) Hyperlipidemia Hypertension Family History Problem Relation Name Age of Onset Heart attack Father Social History Tobacco Use Smoking status: Never Smokeless tobacco: Never Substance Use Topics Alcohol use: Never Drug use: Never Allergies Allergen Reactions Demerol [Meperidine] Doxycycline Nausea And Vomiting Review of Systems Constitutional: Negative for chills, decreased appetite, fever, malaise/fatigue and weight gain. Cardiovascular: Negative for chest pain, dyspnea on exertion, irregular heartbeat, leg swelling, near-syncope, orthopnea, palpitations, paroxysmal nocturnal dyspnea and syncope. Hematologic/Lymphatic: Negative for bleeding problem. Does not bruise/bleed easily. OBJECTIVE Visit Vitals BP 152/73 (BP Location: Right arm, Patient Position: Sitting) Pulse 78 Ht 1.549 m (5' 1 ) Wt 60.8 kg (134 lb) SpO2 95% BMI 25.32 kg/m??? Smoking Status Never BSA 1.62 m??? Medications: Current Outpatient Medications: Advair HFA 115-21 mcg/actuation inhaler, INHALE 2 PUFFS INTO THE LUNGS TWICE A DAY FOR 30 DAYS, Disp: , Rfl: aspirin 81 mg EC tablet, Take 81 mg by mouth in the morning., Disp: , Rfl: atorvastatin (Lipitor) 40 mg tablet, Take 40 mg by mouth in the morning., Disp: , Rfl: calcium citrate-vitamin D3 (Citracal+D) 315 mg-5 mcg (200 unit) tablet, Take 1 tablet by mouth in the morning., Disp: , Rfl: roygp-je-8-qol-dqt-ogtzwna-ast 848-534-92-64 mg capsule, Take by mouth., Disp: , [...] every 8 (eight) hours., Disp: , Rfl: Physical Exam Vitals reviewed. [...] present. Left lower leg: Edema present. Comments: +1 BLE edema (R>L) - compression stockings in place Skin: General: Skin is warm and dry. Neurological: General: No focal deficit present. Mental Status: She is alert and oriented to person, place, and time. Psychiatric: Mood and Affect: Mood normal. Behavior: Behavior normal. Thought Content: Thought content normal. Judgment: Judgment normal. Labs: 03/26/2024 White blood count 5.6, hemoglobin 14.2, hematocrit 44.5, platelets 192 Sodium 140, potassium 3.9, BUN 17, creatinine 0.82, GFR above 60, glucose 94, calcium 9.2 Total bilirubin 0.8, AST 26, ALT 31, alk phos 98, total protein 7.9, albumin 3.8 Triglyceride 85, cholesterol 150, LDL 76, HDL 57 TSH 1.16 09/23/2023: K 4.3 03/31/2023 CBC - unremarkable [...] atrial fibrillation (CMS/HCC) - ECG 12 lead unit performed Essential hypertension Mixed hyperlipidemia PVC (premature ventricular contraction) Paroxysmal a.fib -NSR on EKG today, no QT prolongation -She notes hx of a.fib being triggered by hypokalemia. She does not feel she has had any episodes of a.fib since her potassium has been controlled. -Discussed rate/rhythm control. She would like to continue propafenone for concern of going into a.fib. -[id number] = 3 (age, female, HTN) - she is at an increased risk of stroke, we discussed her stroke risk. She is currently not on anticoagulation. Discussed possibility of asymptomatic episodes of a.fib. Re-discussed starting anticoagulation, she declines at this time. Offered a LOOP recorder for monitoring - she declines at this time. Also offered to place an event monitor if she had any issues before next visit. -She is currently on aspirin 81mg daily. PVCs -Denies any recent issues -Continue metoprolol HTN -Elevated in clinic, controlled at home, she likely has some white coat HTN -Continue metoprolol 50mg BID HLD -On atorvastatin -Controlled per 03/2024 labs. -reviewed results with pt. -PCP orders her yearly labs. Mitral valve regurg -Mild to moderate MR on 2022 ECHO -Asymptomatic -Discuss repeating ECHO at next visit. Follow up in about 6 months (around 07/01/2025). Chantell Camacho CNP [facility] Cardiovascular Medicine OFFICE VISIT Observed: 01/01/2025 10:20 AM Status: COMPLETED Source: [facility] [id number] Holley Vu 11/1950 F Date Provider Department Center 01/01/2025 Smooth-CHANTELL CAMACHO [facility] Alexus Dahl Family History Problem Relation Age of Onset Heart attack Father Family Status - Relation Status Age at Mother Father Level of Service:25756 [place] OFFICE/OUTPATIENT ESTABLISHED MOD MDM 30 MIN Reason for Visit and Comments: Follow-up [454801] - Patient is here today for a 6 month routine follow up appointment. Patient denies chest pain, heart racing/palpitations, dizziness/lightheaded, fatigue. Patient complains of leg swelling which resolves during the night. Atrial Fibrillation [80] Hypertension [368953] Hyperlipidemia [182] PROGRESS Observed: 06/13/2024 9:40 AM Status: COMPLETED Source: [facility] Cardiology - Alexus Dahl [facility] Subjective Holley Vu is a 74 [...] mouth in the morning., Disp: , Rfl: jobpr-il-6-emz-wca-hjmussx-ast 159-511-85-64 mg capsule, Take by mouth., Disp: , [...] sinus rhythm, normal EKG Echo: 01/19/2023 at [facility] Stress test: 01/20/2023 at [facility] Nuclear portion EKG portion Cardiac cath: Event Monitor:02/04/2023 to 03/05/2023 at [facility] Cardiac MRI: CX ray: Assessment/Plan Paroxysmal A-fib, [...] be asymptomatic. We discussed the option of loop recorder again for A-fib surveillance and explained the procedure and how it works. She wants to discuss it with her . She was given some written information. Otherwise the patient was encouraged to continue with her current diet and with her exercise program. Check fasting lipids and AST ALT every 6 months Consider repeating echo next visit to follow-up on mitral regurgitation Follow-up with me in 6-month Jeffrey Handy MD,[facility] OFFICE VISIT Observed: 06/13/2024 9:40 AM Status: COMPLETED Source: [facility] [id number] Holley Vu 11/1950 F Date Provider Department Center 06/13/2024 [id number] HANDY CARD [facility] No family history on file Level of Service:25534 [place] OFFICE/OUTPATIENT ESTABLISHED LOW MDM 20 MIN Reason for Visit and Comments: 6 month follow up [Other] Atrial Fibrillation [80] ALLERGIES DATE TYPE / CODE NAME / CODE REACTION SEVERITY SOURCE 06/13/2024 DRUG INGREDI/2571148 03(SNOMED CT) DOXYCYCLINE (Inactive) Nausea And Vomiting [facility] 12/28/2022 DRUG INGREDI/4172394 03(SNOMED CT) MEPERIDINE [facility] ENCOUNTERS ADMIT/DISCHARGE ACCOUNT NUMBER ADMITTING ENCOUNTER CLASS LOCATION SOURCE 01/01/2025/ 5 [id number] Ambulatory Building:[facility] 08/28/2024/ 5 [id number] Ambulatory Building:[facility] 06/13/2024/ 5 [id number] Ambulatory Building:[facility] PAYERS ENCOUNTER GUARANTOR PAYER SUBSCRIBER SOURCE 01/01/2025 Primary Insurance:[facility] Number: [id number] Date:2024-04-04 HOLLEY VUDOB: [id number] [place] [address] [facility] 08/28/2024 HOLLEY RIGGS: [id number] [place] [address]Ihx: () Primary Insurance:MEDICAREPo licy Number: [id number] Date:[id number] Name:Medicare HOLLEY RIGGS: [id number] [place] [address] [facility] EPIC
--- OUTSIDE RECORDS SUMMARY | 2025-01-01 11:12 | XMS_ITS | Clinical Summary ---
Author Organization [facility] Address [address] [place] [address] Care Team Providers Care Sales Service Promoter Name Role Phone Paulino Swain DO Primary Care Provider [phone] Allergies Active Allergy Reactions Criticality Noted Date [...] A DAY FOR 30 DAYS 05/06/2023 Active tgrib-te-9-dha- jvg-utxxqgd-trz 928-175-62-64 mg capsule Take by mouth. Active aspirin 81 mg EC tablet Take 81 mg by mouth in the morning. Active Active Problems Problem Noted Date Diagnosed Date Overweight (BMI 25.0-29.9) 06/13/2024 Essential hypertension 02/13/2023 Mixed hyperlipidemia 02/13/2023 Paroxysmal atrial fibrillation 02/04/2023 Encounters Date Type Department Care Team Description 01/01/2025 10:20 AM EDT Office Visit [facility] Heart at [facility] [address] [place] [address] Carmelita Crowley CNP Paroxysmal atrial fibrillation (CMS/HCC) (Primary Dx); Essential hypertension; Mixed hyperlipidemia; PVC (premature ventricular contraction) from Last 3 Months Family History Medical History Relation Name Comments Heart attack Father Relation Name Status Comments Father Mother Social History Tobacco Use Types Packs/Day Years [...] Heterosexual or Straight 12/04 11:35 AM EDT Last Filed Vital Signs Vital Sign Reading Time Taken Comments Blood Pressure 152/73 01/01/2025 10:30 AM EDT Pulse 78 01/01/2025 10:30 AM EDT Temperature - - Respiratory Rate 12 02/04/2023 11:09 AM EDT Oxygen Saturation 95% 01/01/2025 10:30 AM EDT Inhaled Oxygen Concentration - - Weight 60.8 kg (134 lb) 01/01/2025 10:30 AM EDT Height 154.9 cm (5' 1 ) 01/01/2025 10:30 AM EDT Body Mass Index 25.32 01/01/2025 10:30 AM EDT Plan of Treatment Health Maintenance Due Date Last Done Comments CT Colonography 1952 Colonoscopy 1952 FOBT 1950 Medicare Annual Wellness (AWV) 1950 Sigmoidoscopy 1952 Depression Screening 1964 Adult Tetanus 1974 Mammogram 1992 Pneumococcal Vaccine: 50+ Years (1 of 1 - PCV) 2002 Fall Risk Screening 2017 FIT 04/15/2023 04/15/2022 COVID-19 Vaccine ( season) 2024 03/12/2021, 06/06/2020, 05/16/2020 Influenza Vaccine (#1) 2024 , 02/01/2022, 01/24/2017, Additional history exists Colorectal Cancer Screening 04/15/2025 FIT-DNA 04/15/2025 04/15/2022 Zoster Vaccines Completed 07/29/2022, 05/27/2022 HIB Vaccines [...] on patient's age to complete this topic Procedures Procedure Name Priority Date/Time Associated Diagnosis Comments ECG 12 LEAD UNIT PERFORMED Routine 01/01/2025 10:52 AM EDT Paroxysmal atrial fibrillation (CMS/HCC) from Last 3 Months Results * ECG 12 lead unit performed (01/01/2025 10:52 AM EDT) Carmelita Crowley CNP ECG ORDERABLES Final Result from Last 3 Months Insurance [employer] Care Teams Sales Service Promoter Relationship Specialty Start Date End Date Paulino Swain DO [address] [place] [address] PCP - General 02/04/23
[2025-01-01 11:44] LABS: Potassium 4.4 mmol/L (3.5-5.1)
== END 2025-01-01 11:11 | disposition home or self-care (01) ==
LOC: LAB 11:10
PROVIDERS: PCP Internal Medicine; Visit Provider Internal Medicine
DX: E87.6 Hypokalemia (principal)
CPT/HCPCS: 36415; 84132

== ENCOUNTER 2025-03-27 08:01 | Outpatient (OUT) | payer OTHER, SELFPAY ==
--- OUTSIDE RECORDS SUMMARY | 2025-03-27 08:03 | XMS_ITS | Clinical Summary ---
Author Organization [facility] Address [address] [place] [address] Care Team Providers Care Development Specialist Name Role Phone Paulino Swain Primary Care Provider [phone] Allergies Active AllergyReactionsCriticalityNoted DateCommentsDoxycyclineNausea And Zhinihyb30/12/5354Imkqprowvf03/26/2023Meperidine ZdiWipeIoh51/19/2025 Medications MedicationSigDispense QuantityRefillsLast FilledStart DateEnd DateStatus atorvastatin (Lipitor) 40 MG tablet Take 40 mg by mouth at bedtimeActive Calcium Citrate-Vitamin D 315-5 MG-MCG tablet Take 1 tablet by mouth in the morning.Active metoprolol succinate XL (Toprol-XL) 50 MG 24 hr tablet 1 (one) time each day at the same timeActive omega-3 (Fish Oil) 1000 MG capsule 1 capsule 1 (one) time each day at the same timeActive propafenone (Rythmol) 150 MG tablet TAKE 1 TABLET BY MOUTH THREE TIMES A DAY 90 DAYSActive aspirin 81 MG EC tablet Take 81 mg by mouth DailyActive potassium chloride CR (Klor-Con M20) 20 MEQ ER tablet TAKE 1 TABLET BY MOUTH THREE TIMES A DAY WITH FOODActive Family History Medical HistoryRelationNameCommentsPancreatic cancerFatherBreast cancerMother RelationNameStatusCommentsFatherDeceasedMotherDeceased Social History Tobacco UseTypesPacks/DayYears UsedDateSmoking Tobacco: NeverSmokeless Tobacco: Never Tobacco Cessation:Counseling Given: Not Answered Alcohol UseStandard Drinks/WeekCommentsNot Currently0 (1 standard drink = 0.6 oz pure alcohol)CommentsNoSex and Gender InformationValueDate RecordedSex Assigned at BirthNot on fileLegal DwaSvolry54/15/2023 9:35 PM EDTGender Identity Not on fileSexual OrientationNot on file Last Filed Vital Signs Vital SignReadingTime TakenCommentsBlood Dijrppzc166/8208/28/2024 10:02 AM EDT Pulse--Temperature--Respiratory Rate--Oxygen Saturation--Inhaled Oxygen Concentration--Gmyszu92.7 kg (136 lb)08/28/2024 10:02 AM HYEKribie427 cm (5' 3 ) 10/17/2018 12:00 PM EDTBody Mass Index24.0910/17/2018 12:00 PM EDT Plan of Treatment DateTypeDepartmentCare Team (Latest Contact Info)Cnbmimbvgct52/28/2026 8:30 AM EDTOffice Visit [facility] [address] YANIRA D [address] [address] Jade Beaulieu DO [address] [address] Health MaintenanceDue DateLast DoneCommentsCT Bxogwfmpoilp00/08/1951Colonoscopy 1950FIT1950FOBT1950 3158Ivfzrpwyowzng47/08/8315Qqubxeqyw07/08/1993 Pneumococcal Vaccine: 65+ Years (1 of 1 - PCV)2002Influenza Vaccine (#1) /10/2023, 02/01/2022, 01/24/2017, Additional history exists Colorectal Cancer Ktrquygmw23/12/2026FIT-DNA, 03/21/2019 Insurance Care Teams Team MemberRelationshipSpecialtyStart DateEnd Date Paulino Swain DO [address] [place] [address] PCP - GeneralInternal Medicine08/28/24
--- OUTSIDE RECORDS SUMMARY | 2025-03-27 08:03 | XMS_ITS | Clinical Summary ---
Author Organization [facility] Address [address] [place] [address] Care Team Providers Care [employer] Name Role Phone Paulino Swain DO Primary Care Provider [phone] Allergies Active AllergyReactionsCriticalityNoted HwikTqjplnrkIctivkscse44/26/2023 DoxycyclineNausea And Cxkeuxew89/12/2025 Medications MedicationSigDispense QuantityRefillsLast FilledStart DateEnd DateStatus pantoprazole (ProtoNix) 20 mg EC tablet Take 20 mg by mouth before breakfast. Do not crush, chew, or split.Active metoprolol tartrate (Lopressor) 50 mg tablet Take 50 mg by mouth in the morning and at bedtime.Active propafenone (Rythmol) 150 mg tablet Take 150 mg by mouth every 8 (eight) hours.Active atorvastatin (Lipitor) 40 mg tablet Take 40 mg by mouth in the morning.Active potassium chloride CR (Klor-Con M20) 20 mEq ER tablet Take 20 mEq by mouth in the morning, at noon, and at bedtime. Do not crush or chew.Active calcium citrate-vitamin D3 (Citracal+D) 315 mg-5 mcg (200 unit) tablet Take 1 tablet by mouth in the morning.Active Advair HFA 115-21 mcg/actuation inhaler INHALE 2 PUFFS INTO THE LUNGS TWICE A DAY FOR 30 DAYS05/06/2023ctive dqgys-ve-3-inv-bno-gnuffov-ast [id number] mg capsule Take by mouth.Active aspirin 81 mg EC tablet Take 81 mg by mouth in the morning.Active Active Problems ProblemNoted DateDiagnosed DateOverweight (BMI 25.0-29.9)06/13/2024Essential bwxetftfayvu35/12/2023Mixed azzjreyasfpsxz05/12/2023aroxysmal atrial /03/2023 Encounters DateTypeDepartmentCare OucvBrtqvjqwneh38/30/2025 10:20 AM EDTOffice Visit [facility] [address] [place] [address] Carmelita Crowley CNP Paroxysmal atrial fibrillation (CMS/HCC) (Primary Dx); Essential hypertension; Mixed hyperlipidemia; PVC (premature ventricular contraction)from Last 3 Months Family History Medical HistoryRelationNameCommentsHeart attackFatherRelationNameStatusComments FatherDeceasedMotherDeceased Social History Tobacco UseTypesPacks/DayYears UsedDateSmoking Tobacco: NeverSmokeless Tobacco: Never Tobacco Cessation:Counseling Given: Not Answered Alcohol UseStandard Drinks/WeekCommentsNever0 (1 standard drink = 0.6 oz pure alcohol)[place] Safety & EnvironmentAnswerDate RecordedFear of Current or Ex-Partner Not on file05/27/2023Emotionally AbusedNot on file05/27/2023hysically AbusedNot on file05/27/2023Sexually AbusedNot on file05/27/2023hysically or Sexually AbusedNot on file05/27/2023CommentsUnknownSex and Gender Information ValueDate RecordedSex Assigned at NfuyhPzuvui01/24/2025 11:35 AM EDTLegal Sex Viybsk1212/17/2022 9:41 AM EDTGender ZzmasvwmVzjrvx14/24/2025 11:35 AM EDTSexual OrientationHeterosexual or Knaxopxa05/24/2025 11:35 AM EDT Last Filed Vital Signs Vital SignReadingTime TakenCommentsBlood Mxludwcv219/7301/01/2025 10:30 AM EDT Junxu808901/01/2025 10:30 AM EDTTemperature--Respiratory Yxxl585404/06/2022 11:09 AM EDTOxygen Fxlzpedsqw98%01/01/2025 10:30 AM EDTInhaled Oxygen Concentration-- Xwkccm51.8 kg (134 lb)01/01/2025 10:30 AM YONYeuegv101.9 cm (5' 1 )01/01/2025 10:30 AM EDTBody Mass Index25.32001/01/2025 10:30 AM EDT Plan of Treatment Health MaintenanceDue DateLast DoneCommentsCT Lutacfwrrrla22/08/1953Colonoscopy 1952FOBT1952Medicare Annual Wellness (AWV)1952Sigmoidoscopy 1952epression Rdnrvmjdp24/08/1965Adult Meioncj5206/09/1974Mammogram 1992Pneumococcal Vaccine: 50+ Years (1 of 1 - PCV)2002Fall Risk Cctagdkjz54/08/4962TFG60OVID-19 Vaccine ( - season) /12/2020, 06/06/2020, 05/16/2020Influenza Vaccine (#1)2024 02/09/2024, 02/01/2022, 01/24/2017, Additional history existsColorectal Cancer Vmhzusigw50/12/2026FIT-DNAZoster VaccinesCompleted 07/29/2022, 05/27/2022HIB VaccinesAged OutNo longer eligible based on patient's age to complete this topicHPV VaccinesAged OutNo longer eligible based on patient's age to complete this topicIPV VaccinesAged OutNo longer eligible based on patient's age to complete this topicMeningococcal B VaccineAged OutNo longer eligible based on patient's age to complete this topicMeningococcal VaccineAged OutNo longer eligible based on patient's age to complete this topicRotavirus VaccinesAged OutNo longer eligible based on patient's age to complete this topic Procedures Procedure NamePriorityDate/TimeAssociated DiagnosisCommentsECG 12 LEAD UNIT EECUCVVBTXnxaxzc19/30/2025 10:52 AM EDT Paroxysmal atrial fibrillation (CMS/HCC) from Last 3 Months Results * ECG 12 lead unit performed (01/01/2025 10:52 AM EDT)Specimen (Source) Anatomical Location / LateralityCollection Method / VolumeCollection Time Received Time Narrative Authorizing ProviderResult TypeResult StatusMelinda Keo CNPECG ORDERABLES Final Result from Last 3 Months Insurance Care Teams Team MemberRelationshipSpecialtyStart DateEnd Date Paulino Swain DO [address] [place] [address] PCP - Refftrz40/3/23
--- NOTE | 2025-03-27 08:25 | MM_ITS ---
Patient Name: RIGOBERTO ALVARENGA MR#: [id number] : 1950 Exam Date: 03/27/2025 Ordering Doctor: DR TRENA HOWARD D.O. RADIOLOGY REPORT PROCEDURE: MM TOMOSYNTHESIS SCREENING BI COMPARISON: MM TOMOSYNTHESIS SCREENING BI, 03/26/2024. MM TOMOSYNTHESIS SCREENING BI, 03/23/2023. MG MAMM SCREEN 3D EUFEMIA CAD, 03/22/2022. MG MAMM EUFEMIA SCRN W CAD DIG, 03/06/2013. INDICATIONS: Screening Calculator Name NCI Breast Cancer Risk Assessment Tool 5 Year Breast Cancer Risk 3.70% Lifetime Breast Cancer Risk 9.50% Personal Breast Cancer No Personal Ovarian Cancer No Treatments None Family Cancers Mother with breast cancer at age 68; Father with adenocarcinoma cancer at age 61. LOCATION: [facility] BREAST COMPOSITION: The breasts are heterogeneously dense, which may obscure small masses. FINDINGS: DIAGNOSTIC CATEGORY 0--INCOMPLETE: NEED ADDITIONAL IMAGING EVALUATION. LEFT BREAST: FOCAL ASYMMETRY (finding without convex borders usually visible on two orthogonal views), 5 mm 6 cm from the nipple. Superior breast on MLO. Lateral breast on CC RECOMMENDATIONS: ADDITIONAL MAMMOGRAPHIC VIEWS REQUIRED: LEFT BREAST - posterior depth, spiculated morphology, upper outer quadrant ULTRASOUND: LEFT BREAST Dictated by: Rick Gomez MD on 03/27/2025 at 10:56 Approved by: Rick Gomez MD on 03/27/2025 at 11:03
== END 2025-03-27 08:02 | disposition home or self-care (01) ==
LOC: MAMMO 08:01
PROVIDERS: Visit Provider Internal Medicine
DX: Z12.31 Encounter for screening mammogram for malignant neoplasm of breast (principal); Z80.3 Family history of malignant neoplasm of breast; Z80.8 Family history of malignant neoplasm of other organs or systems; R92.8 Other abnormal and inconclusive findings on diagnostic imaging of breast
CPT/HCPCS: 77063; 77067